=== PATIENT | female | born 1940 | race Caucasian/White ===

== ENCOUNTER 2019-01-19 13:46 | Emergency (ER) | payer MEDICARE, OTHER ==
[~2019-01-19] VITALS: Ht 167.6 cm; Wt 69.0 kg
--- OUTSIDE RECORDS SUMMARY | ~2019-01-19 | XMS | Clinical Summary ---
Demographics + + + | Address | [address] | | | [place] [address] | + + + | Home Phone | | + + + | Preferred Language | Unknown | + + + | Marital Status | Single | + + + | Taoist Affiliation | Unknown | + + + | Race | Unknown | + + + | Ethnic Group | Unknown | + + + Author + + + | Author | [facility] [employer] | + + + | Organization | [facility] [employer] | + + + | Address | Unknown | + + + | Phone | Unavailable | + + + Care Team Providers + +------+ + | Care Organization Development Consultant Name | Role | Phone | + +------+ + | Jerry Lagunas MD | PP | | + +------+ + Allergies Not on File Current Medications Not on file Active Problems Not [...] on file | | + + + Plan of Treatment + + + + [...] | + + + + + | DEXA SCAN SCREENING | | | | | | 6 | | | + + + + + | Vaccine: | | | | | Pneumococcal 65+ | 6 | | | | Low/Medium Risk (1 | | | | | of 2 - PCV13) | | | | + + + + + | Vaccine: Influenza | | | | | (#1) | 8 | | | + + + + + Results Not on filefrom Last 3 Months Insurance + +--------+ +------+-------+ + | Payer | Benefi | Subscriber | Type | Phone | Address | | | t Plan | ID | | | | | | / | | | | | | | Group | | | | | + +--------+ +------+-------+ + | MEDICARE | MEDICA | [id number] | | | [address] | | | RE | | | | [place] [address] | | | PART B | | | | | | | | | | | | | | OUTPAT | | | | | | | IENT | | | | | | | ONLY | | | | | + +--------+ +------+-------+ + + +--------+ +--------+-------+ + | Guarantor Name | Accoun | Relation to | Date | Phone | Billing Address | | | t Type | Patient | of | | | | | | | | | | + +--------+ +--------+-------+ + | JOSE HENSLEY | Person | Self | [birth year] | | | | ar/Nayan | | 1940 | | | | | ariela | | | | | + +--------+ +--------+-------+ +"
--- OUTSIDE RECORDS SUMMARY | ~2019-01-19 | XMS | Clinical Summary ---
Demographics + + + | Address | [address] | | | [place] [address] | + + + | Home Phone | | + + + | Preferred Language | Unknown | + + + | Marital Status | Unknown | + + + | Jew Affiliation | Unknown | + + + | Race | Unknown | + + + | Ethnic Group | Unknown | + + + Author + + + | Author | [facility] | + + + | Organization | [facility] | | | and [place] | + + + | Address | Unknown | + + + | Phone | Unavailable | + + + Care Team Providers + +------+ + | Care Phlebotomy Coordinator Name | Role | Phone | + +------+ + PP | Unavailable | + +------+ + Allergies Not on [...]
--- OUTSIDE RECORDS SUMMARY | ~2019-01-19 | XMS | Clinical Summary ---
Demographics + + + | Address | [address] | | | [place] [address] | + + + | Home Phone | | + + + | Preferred Language | Unknown | + + + | Marital Status | Single | + + + | Buddhism Affiliation | Unknown | + + + | Race | Unknown | + + + | Ethnic Group | Unknown | + + + Author + + + | Author | [facility] [employer] | + + + | Organization | [facility] [employer] | + + + | Address | Unknown | + + + | Phone | Unavailable | + + + Care Team Providers + +------+ + | Care Tubular Splitting Machine Tender Name | Role | Phone | + [...] +------+-------+ + | MEDICARE | MEDICA | [id number] | | | [address] | | | RE | | | | [place] [address] | | | PART B | | [...] | 1940 | | | | | raiela | | | | | + +--------+ +--------+-------+ +"
--- OUTSIDE RECORDS SUMMARY | ~2019-01-19 | XMS | Clinical Summary ---
Demographics + + + | Address | [address] | | | [place] [address] | + + + | Home Phone | | + + + | Preferred Language | Unknown | + + + | Marital Status | Unknown | + + + | Pentecostalism Affiliation | Unknown | + + + | Race | Unknown | + + + | Ethnic Group | Unknown | + + + Author + + + | Author | [facility] | | | [facility] | + + + | Organization | [facility] | | | and [place] | + + + | Address | Unknown | + + + | Phone | Unavailable | + + + Care Team Providers + +------+ + | Care Archival Records Clerk Name | Role | Phone | + [...]
[~2019-01-19 13:46] MED LIST: AMOXICILLIN500 MG PO; B-125000 MCG PO; DICLOFENAC SOD100 G1 TOP; ELIQUIS5 MG PO; FLUTICASONE PRO16 GM NAS; LEVOTHYROXINE100 MCG PO; LEVOTHYROXINE88 MCG PO; METRONIDAZOLE250 MG; METRONIDAZOLE250 MG PO; OMEPRAZOLE20 MG PO; PRAVASTATIN SOD40 MG PO; TIKOSYN500 MCG PO; WARFARIN SODIU2.5 MG PO; XARELTO20 MG PO
== END 2019-01-19 15:00 | disposition home or self-care (01) ==
LOC: ED 13:46
PROC: 0HQ1XZZ Repair Face Skin, External Approach (ICD-10-PCS; principal; 2019-01-19)
DX: S01.112A Laceration without foreign body of left eyelid and periocular area, initial encounter (principal); E03.9 Hypothyroidism, unspecified; Z90.710 Acquired absence of both cervix and uterus; Z88.8 Allergy status to other drugs, medicaments and biological substances; Z79.899 Other long term (current) drug therapy; Z79.01 Long term (current) use of anticoagulants; W01.10XA Fall on same level from slipping, tripping and stumbling with subsequent striking against unspecified object, initial encounter
CPT/HCPCS: 12011; 36415; 70450; 85610; 99284-25

== ENCOUNTER 2019-09-09 16:59 | Inpatient (IN) | payer MEDICARE, OTHER ==
[~2019-09-09] VITALS: Ht 167.6 cm; Wt 70.8 kg
--- OUTSIDE RECORDS SUMMARY | ~2019-09-09 | XMS | Clinical Summary ---
Demographics + + + | Address | [address] | | | [place] [address] | + + + | Home Phone | | + + + | Preferred Language | Unknown | + + + | Marital Status | Unknown | + + + | Methodist Affiliation | Unknown | + + + | Race | Unknown | + + + | Ethnic Group | Unknown | + + + Author + + + | Author | [facility] | | | and [place] | + + + | Organization | [facility] | | | and [place] | + + + | Address | Unknown | + + + | Phone | Unavailable | + + + Care Team Providers + +------+ + | Care Field Support Engineer Name | Role | Phone | + +------+ + | Manpreet Lagunas MD | PCP | | + +------+ + Allergies Not on File Medications Not on file Active Problems Not on file Social History + +-------+ +--------+------+ | Tobacco Use | Types | Packs/Day | Years | Date | | | | | Used | | + +-------+ +--------+------+ | Never Assessed | | | | | + +-------+ +--------+------+ + + + | Sex Assigned at | Date Recorded | | | | + + + | Not on file | | + + + + + + + | Job Start Date | Occupation | Industry | + + + + | Not on file | Not on file | Not on file | + + + + + + + + | Travel History | Travel Start | Travel End | + + + + + + | No recent travel history available. | + + Last Filed Vital Signs Not on file Plan of Treatment + + + + + | Health Maintenance | Due Date | Last Done | Comments | + + + + + | Vaccine: | | | | | Dtap/Tdap/Td (1 - | 0 | | | | Tdap) | | | | + + + + + | Vaccine: Zoster (1 | | | | | of 2) | 1 | | | + + + + + | Breast Cancer | | | | | Screening | 6 | | | + + + + + | Vaccine: | | | | | Pneumococcal 65+ | 6 | | | | Low/Medium Risk (1 | | | | | of 2 - PCV13) | | | | + + + + + | Vaccine: Influenza | | | | | (#1) | 9 | | | + + + + + Results Not on filefrom Last 3 Months"
--- OUTSIDE RECORDS SUMMARY | ~2019-09-09 | XMS | Clinical Summary ---
Demographics + + + | Address | [address] | | | [place] [address] | + + + | Home Phone | | + + + | Preferred Language | Unknown | + + + | Marital Status | Single | + + + | Roman Catholic Affiliation | Unknown | + + + | Race | Unknown | + + + | Ethnic Group | Unknown | + + + Author + + + | Author | [facility] (Historical as of | | | 06-23-19) | + + + | Organization | [facility] (Historical as of | | | 06-23-19) | + + + | Address | Unknown | + + + | Phone | Unavailable | + + + Care Team Providers + +------+ + | Care Dialysis Technician Name | Role | Phone | + [...] +------+-------+ + | MEDICARE | MEDICA | [id number] | | | [address] | | | RE | | | | [place] [address] | | | PART B | | [...] | [birth year] | | | | | al/Nayan | | 1940 | | | | | ariela | | | | | + +--------+ +--------+-------+ +"
--- OUTSIDE RECORDS SUMMARY | ~2019-09-09 | XMS | Clinical Summary ---
Demographics + + + | Address | [address] | | | [place] [address] | + + + | Home Phone | | + + + | Preferred Language | Unknown | + + + | Marital Status | Single | + + + | Zoroastrian Affiliation | Unknown | + + + | Race | Unknown | + + + | Ethnic Group | Unknown | + + + Author + + + | Author | [facility] (Historical as of | | | 06-23-19) | + + + | Organization | [facility] [employer] [facility] (Historical as of | | | 06-23-19) | + + + | Address | Unknown | + + + | Phone | Unavailable | + + + Care Team Providers + +------+ + | Care Supervisor Plate Pasting Name | Role | Phone | + [...] +------+-------+ + | MEDICARE | MEDICA | [id number] | | | [address] | | | RE | | | | [place] [address] | | | PART B | | [...]
--- OUTSIDE RECORDS SUMMARY | ~2019-09-09 | XMS | Clinical Summary ---
Demographics + + + | Address | [address] | | | [place] [address] | + + + | Home Phone | | + + + | Preferred Language | Unknown | + + + | Marital Status | Unknown | + + + | Christianity Affiliation | Unknown | + + + | Race | Unknown | + + + | Ethnic Group | Unknown | + + + Author + + + | Author | [facility] | | | and [place] | + + + | Organization | [facility] | | | and [place] | + + + | Address | Unknown | + + + | Phone | Unavailable | + + + Care Team Providers + +------+ + | Care Bristle Machine Operator Name | Role | Phone | + [...]
--- OUTSIDE RECORDS SUMMARY | ~2019-09-09 | XMS | Clinical Summary ---
Demographics + + + | Address | [address] | | | [place] [address] | + + + | Home Phone | | + + + | Preferred Language | Unknown | + + + | Marital Status | Single | + + + | Islam Affiliation | Unknown | + + + | Race | Unknown | + + + | Ethnic Group | Unknown | + + + Author + + + | Author | [facility] (Historical as of | | | 06-23-19) | + + + | Organization | [facility] (Historical as of | | | 06-23-19) | + + + | Address | Unknown | + + + | Phone | Unavailable | + + + Care Team Providers + +------+ + | Care Marketing Analytics Specialist Name | Role | Phone | [...] +------+-------+ + | MEDICARE | MEDICA | [id number] | | | [address] | | | RE | | | | [place] [address] | | | PART B | | [...]
--- OUTSIDE RECORDS SUMMARY | ~2019-09-09 | XMS | Clinical Summary ---
Demographics + + + | Address | [address] | | | [place] [address] | + + + | Home Phone | | + + + | Preferred Language | Unknown | + + + | Marital Status | Unknown | + + + | Taoist Affiliation | Unknown | + + + | Race | Unknown | + + + | Ethnic Group | Unknown | + + + Author + + + | Author | [facility] | | | and [place] | + + + | Organization | [facility] | | | and [place] | + + + | Address | Unknown | + + + | Phone | Unavailable | + + + Care Team Providers + +------+ + | Care Dial Marker Name | Role | Phone | + [...]
[~2019-09-09 16:59] MED LIST changes: +ALLEGRA ALLERG180 MG PO
--- NOTE | 2019-09-09 23:00 | NUR ---
PT RESTING IN BED. ASSESSMENT COMPLETED. IV CDI, WNL, FLUSHED. IV FLUIDS INFUSING PER ORDER. A&O X4. GCS 15. NO OTHER NEEDS AT THIS TIME. CALL LIGHT IN REACH.
--- NOTE | 2019-09-09 23:25 | NUR ---
CALLED MD TO ASK ABOUT PT HOME MED TIKOSYN 500MG BID AND BLOOD THINNER. INR RESULTS TODAY ARE THERAPUTIC, NO BLOOD THINNER ORDERED. PT TO TAKE OWN TIKOSYN ORDERED.
--- NOTE | 2019-09-10 01:03 | NUR ---
PT RESTING IN BED, EYS CLOSED. RR 14, EVEN, UNLABORED. CALL LIGHT IN REACH.
--- NOTE | 2019-09-10 02:00 | NUR ---
VITALS DONE AND CHARTED. URINE SAMPLE TAKEN . BEDSIDE TABLE AND CALL LIGHT IN REACH.
--- NOTE | 2019-09-10 03:10 | NUR ---
PT RESTING IN BED, EYES CLOSED. RR 16, EVEN, UNLABORED. CALL LIGHT IN REACH.
--- NOTE | 2019-09-10 04:40 | NUR ---
PT CALLS TO USE RESTROOM. URINE COLLECTED AND SENT TO LAB PER ORDER. LEFT AC IV DC'D, INTACT. 20G RIGHT FA PLACED, TOLERATED WELL. IV FLUIDS INFUSING PER ORDER. NO OTHER NEEDS AT THIS TIME. CALL LIGHT IN REACH.
--- NOTE | 2019-09-10 05:54 | NUR ---
PT AWAKE IN ROOM. UP TO BR, SBA. SCHEDULED MED PROVIDED. NO OTHER NEEDS AT THIS TIME. CALL LIGHT IN REACH.
--- NOTE | 2019-09-10 06:12 | NUR ---
PT SLEPT OFF AND ON THIS SHIFT. PT HAS VERTIGO WITH MOVEMENT AND STANDING. PT TOLERATED IV FLUIDS WELL. TELE #7 SR TRENDING IN THE LOW 60S. IV IN R AC DC'D DUE TO INFILTRATION. NEW IV IN R FA, 20G, FLUSHED WELL.
--- NOTE | 2019-09-10 08:09 | NUR ---
PATIENT WAS AWAKE, AMBULATED TO THE RESTROOM 1 P ASSIST, FACE WAHED FRESH WATER GIVEN, CLEANED OFF HER TABLE, CALL LIGHT IN REACH, BREAKFAST ARRIVED.
[2019-09-10] MEDS ORDERED: TIKOSYN500 MCG PO (09:36)
--- NOTE | 2019-09-10 09:45 | NUR ---
PATIENT UP TO BATHROOM SHOWERED. FULL BODY ASSESMENT DONE, MORNING MEDICAITONS ADMINISTERED. PATIENT STEADY ON FEET, NO COMPLAINTS OF DIZZINESS.
--- NOTE | 2019-09-10 11:07 | NUR ---
MRI SCREENING DONE, AORTA VALVE CARD COPIED AND FORMS FAXED TO MRI, NOTIFIED ANAI DEL ROSARIO ON PHONE.
--- NOTE | 2019-09-10 11:42 | NUR ---
PT IS ALERT, ORIENTED AND STAFF HAS KEPT HER BUSY WORKING ON DC MAYBE TODAY. PT ADMITTED SHE IS STILL "DIZZY" IN HER WORDS AND MADE JOKES ABOUT IT. PT REQUESTED PRAYER, WILL FOLLOW NEEDED
--- NOTE | 2019-09-10 13:26 | NUR ---
Medications reocnciled using pharmacy records and patient interview
--- NOTE | 2019-09-10 14:50 | NUR ---
PATIENT CONTINUES TO COMPLAIN OF HEADACHE, PROVIDED PATIENT WITH CUP OF COFFEE AND WARM PACK TO PLACE ON BACK OF NECK. NO RELIEF OF PAIN. DR. NIÑO ORDERED 1 X DOSE OF 15MG IV TORADOL. PATIENT AGREED WITH PLAN, NOW UP TO BATHROOM. STEADY ON FEET, PATIENT REPORTS FEELING STEADY ON FEET STATES " I AM NOT DIZZY, JUST HAVE AN AWFUL HEADACHE AND NOW MY STOMACH IS BOTHERING ME". CALL LIGHT WITHIN REACH, FAMILY IN ROOM.
--- NOTE | 2019-09-10 15:55 | NUR ---
In to speak with Zoey, she is holding her granddaughter. States she continues with a headache and awaiting results of MRI. Family in room. She lives alone with a daughter in law her assists her. Has [address] condo. She continues to work at [employer]. Does not use any DME at home.
[2019-09-10] MEDS ORDERED: GUMMI BEAR MUL1 EACH PO (16:27)
[2019-09-10] MEDS ORDERED: VITAMIN B-12500 MC3 PO (16:29)
--- NOTE | 2019-09-10 17:38 | EKG ---
[facility] [address] [place] [address] Signed Sinus rhythm with marked sinus arrhythmia ST \T\ T wave abnormality, consider lateral ischemia Prolonged QT Abnormal ECG When compared with ECG of 07-DEC-2016 14:47, premature supraventricular complexes are no longer present Questionable change in QRS duration Confirmed by CHARIS NIÑO DO ([id number]) on 09/10/2019 5:38:12 PM Electronically Signed By: CHARIS NIÑO DO 09/10/19 1738 PATIENT NAME: AYDENJOSE Electrocardiogram DATE OF : 42 PHYSICIAN: CHARIS NIÑO DO REPORT #: [id number] REPORT IS CONFIDENTIAL AND NOT TO BE RELEASED WITHOUT AUTHORIZATION
--- NOTE | 2019-09-10 17:40 | EKG ---
[facility] [address] [place] [address] Signed Sinus rhythm with premature ventricular complexes or fusion complexes Nonspecific T wave abnormality Prolonged QT Abnormal ECG When compared with ECG of 09-SEP-2019 17:05, (Unconfirmed) fusion complexes are now present premature ventricular complexes are now present ST no longer depressed in Lateral leads Inverted T waves have replaced nonspecific T wave abnormality in Anterior leads T wave inversion no longer evident in Lateral leads Confirmed by CHARIS NIÑO DO ([id number]) on 09/10/2019 5:40:00 PM Electronically Signed By: CHARIS NIÑO DO 09/10/19 1740 PATIENT NAME: JOSE HENSLEY Electrocardiogram DATE OF : 42 PHYSICIAN: CHARIS NIÑO DO REPORT #: [id number] REPORT IS CONFIDENTIAL AND NOT TO BE RELEASED WITHOUT AUTHORIZATION
--- NOTE | 2019-09-10 18:57 | NUR ---
PATIENT TO MRI TODAY. COMPLAINTS HEADACHE FROM BASE OF NECK TO RIGHT SIDE OF HEAD. ONE TIME DOSE OF IV TORADOL AND TYLENOL RESOLVED. STBY TO BATHROOM PATIENT USING CALL LIGHT APPROPRIATLEY. BED ALARMS ON SECONDARY TO PATIENT VERBALIZING WILL AMBULATE SELF TO BATHROOM.
--- NOTE | 2019-09-10 19:10 | NUR ---
PT AWAKE IN ROOM, WATCHING TV. SHIFT REPORT RECIEVED FROM UBALDO REBOLLAR. NO NEEDS AT THIS TIME. RIGHT FA IV CDI, WNL, FLUSHED. CALL LIGHT IN REACH.
--- NOTE | 2019-09-10 20:58 | NUR ---
CALL LIGHT ANSWERED. ORTHOSTATIC VS COMPLETE. SBA TO RESTROOM. GAIT STEADY. SOME C/O DIZZINESS. pt STATES "MUCH BETTER THAN LAST NIGHT". DENIES NEED FOR PRN MEDICATION. IVF INFUSING WNL. VERBALIZES UNDERSTANDING TO USE CALL LIGHT WHEN FINISHED.
--- NOTE | 2019-09-10 22:24 | NUR ---
PT RESTING IN BED, WATCHING TV. SCHEDULED MED PROVIDED. ASSESSMENT COMPLETED. IV CDI, WNL. IV FLUIDS INFUSING PER ORDER. NO OTHER NEEDS AT THIS TIME. CALL LIGHT IN REACH.
--- NOTE | 2019-09-10 23:16 | NUR ---
WENT IN TO CHANGED THE TELE BATTERY. PATIENT USED THE BATHROOM. 1 PA. PATIENT IS BACK IN BED. NO OTHER NEEDS AT THIS TIME.
--- NOTE | 2019-09-11 00:19 | NUR ---
PT AWAKE IN ROOM. WARM DRINK PROVIDED. IV FLUIDS INFUSING OER ORDER. NO OTHER NEEDS AT THIS TIME. CALL LIGHT IN REACH.
--- NOTE | 2019-09-11 01:18 | NUR ---
PT UP TO BR, SBA. NO OTHER NEEDS. CALL LIGHT IN REACH.
--- NOTE | 2019-09-11 01:57 | NUR ---
PT RESTING IN BED WITH EYES CLOSED. RR 18, EVEN, UNLABORED. CALL LIGHT IN REACH.
--- NOTE | 2019-09-11 03:39 | NUR ---
PT UP TO BR WITH SMOOTH GASCA. ASSESSMENT COMPLETED. NO OTHER NEEDS AT THIS TIME. IV FLUIDS INFUSING PER ORDER. IV CDI, WNL. CALL LIGHT IN REACH.
--- NOTE | 2019-09-11 05:29 | NUR ---
PT SLEPT MOST OF THE SHIFT. IV CDI, WNL, FLUSHED. PT HAS SOME DIZZINESS IF SHE SITS OR STANDS UP QUICKLY. PT NEEDS REMINDED TO MOVE SLOWLY. VSS. A & O X4. PT REPORTED NO PAIN THIS SHIFT. PT TOLERATED IV FLUIDS WELL.
--- NOTE | 2019-09-11 05:51 | NUR ---
PT AWAKE IN ROOM. LAB IN ROOM. SCHEDULED MED PROVIDED. VS AND I&O COMPLETED. COFFEE AND ICE WATER PROVIDED. IV INFUSING PER ORDER. PT UP TO BR AND BACK TO BED. NO OTHER NEEDS AT THIS TIME. CALL LIGHT IN REACH.
--- NOTE | 2019-09-11 07:44 | NUR ---
REPORT RECIEVED FROM ATTENDANCE SECRETARY. PT UP TO BATHROOM WITHOUT STAFF ASSIST. PT EDUCATED VTC TECHNICIAN LIGHT, AND NEEDING STAFF WHEN GETTING OUT OF BED D/T FALL RISK. CALL LIGHT IN REACH. PT IS ALERT AND ORIENTED. LR AT 125 INFUSING. TELE # [address] WITH IRREGULAR HR AT 60 BPM. DENEIS FURTHER NEEDS.
--- NOTE | 2019-09-11 09:17 | NUR ---
ORTHOSTATIC VITALS DONE. PT WITH CONTINUED DIZZINESS FROM SITTING TO BATHROOM AND BACK TO BED WITH NO RELEAVING FACTORS. DR NIÑO NOTIFIED OF VITALS. NO NEW ORDERS. PT WITH CALL LIGHT AND PERSONAL ITEMS AT BEDSIDE.
--- NOTE | 2019-09-11 11:12 | NUR ---
PT UP TO BATHROOM. STILL REPORTING DIZZINESS WITH AMBULATION.
--- NOTE | 2019-09-11 13:30 | NUR ---
PT UP AMBULATIGN [place] WITH PHYSICAL THERAPY.
--- NOTE | 2019-09-11 13:54 | NUR ---
PT WAITING FOR HEDIS MANAGER TO COME ASSIST WITH SHOWER. SHE IS ALERT, ORIENTED AND A LITTLE BOTHERED BY HER BP ISSUES.PT REQUESTED I CONTACT HER ELECTRONICS DEPARTMENT MANAGER, WHICH I DID. HAD PRAYER WITH PT, WILL FOLLOW NEEDED
--- NOTE | 2019-09-11 14:42 | NUR ---
Spoke with pt when she returns from room with PT. Pt. states she is dizzy. Assisted to return to bed by PT.
--- NOTE | 2019-09-11 15:30 | NUR ---
PT SITTING IN BED WATCHING TV. REPORTS DIZZINESS UNCAHNGED. CALL LIGHT IN REACH.
--- NOTE | 2019-09-11 18:02 | NUR ---
PT IN BED EATING DINNER. PT HAS NO NEEDS AT THIS TIME.
--- NOTE | 2019-09-11 19:40 | NUR ---
SHIFT REPORT RECIEVED FROM DAT REBOLLAR. PT RESTING IN BED, WATCHING TV. ICE WATER PROVIDED. NO OTHER NEEDS. CALL LIGHT IN REACH.
--- NOTE | 2019-09-11 19:40 | NUR ---
pt FOUND AMBULATING TO RESTROOM. RN IN ROOM. pt EDUCATED ON FALL PRECAUTIONS, SAFETY. VERBALIZES UNDERSTANDING NOT TO GET OUT OF BED WITHOUT CALLING NURSES STATION. CALL LIGHT IN REACH.
--- NOTE | 2019-09-11 22:39 | NUR ---
ORTHOSTATIC VS COMPLETE. LYING 116/69, SITTING 101/58, STANDING 84/53. pt C/O SOME DIZZINESS WITH STANDING. GAIT UNSTEADY. SBA TO RESTROOM FOR VOID AND BACK TO BED. CALL LIGHT IN REACH. ICE WATER AND HOT CHOCOLATE PROVIDED REQUESTED.
--- NOTE | 2019-09-11 23:04 | NUR ---
PT ASSESSMENT COMPLETED. PT REPORTS NO DIZZINESS OR NAUSEA. IV CDI, WNL, FLUSHED. SCHEDULED MED PROVODED. NO OTHER NEEDS. CALL LIGHT IN REACH.
--- NOTE | 2019-09-12 00:30 | NUR ---
PT RESTING IN BED, EYES CLOSED. RR 18, EVEN, UNLABORED. CALL LIGHT IN REACH.
--- NOTE | 2019-09-12 02:08 | NUR ---
CALL LIGHT ANSWERED. SBA TO RESTROOM FOR VOID AND BACK TO BED. pt DENIES DIZZINESS, GAIT UNSTEADY. CALL LIGHT AND PERSONAL SUPPLIES IN REACH. BED ALARM ON.
--- NOTE | 2019-09-12 04:06 | NUR ---
PT RESTING IN BED, EYES CLOSED. RR 14, EVEN, UNLABORED. CALL LIGHT IN REACH.
--- NOTE | 2019-09-12 05:14 | NUR ---
pt RESTING IN BED. AWAKENS TO VOICE. VSS. CALL LIGHT IN REACH. NO REQUESTS AT THIS TIME.
--- NOTE | 2019-09-12 05:41 | NUR ---
PT SLEPT WELL THIS SHIFT. TELE #6 IRREGULAR. ONE EPISODE OF BRADYCARDIA WHILE SLEEPING. BP AND PULSES WNL IMMEDIATELY AFTER EPISODE. DIZZINESS WHEN STANDING AND CHANGING POSITION.
--- NOTE | 2019-09-12 06:10 | NUR ---
PT AWAKE IN ROOM. LAB IN ROOM. SCHEDULED MED PROVIDED. PT DENIES DIZZINESS WHILE LAYING IN BED. ASSESSMENT COMPLETED. COFFEE PROVIDED. BED ALARM ON. NO OTHER NEEDS. CALL LIGHT IN REACH.
--- NOTE | 2019-09-12 06:53 | NUR ---
CALL LIGHT ANSWERED. SBA TO RESTROOM FOR VOID. PRN DIZZINESS MEDICATION ADMINISTERED.
--- NOTE | 2019-09-12 07:17 | NUR ---
REPORT RECEIVED FROM SMOOTH WILLAMS. PT RESTING IN BED. PT DENIES PAIN BUT STATES "I MIGHT BE GETTING A HEADACHE" PT DENIES NEED FOR PAIN MEDICAITON STATING "I JUST NEED SOME COFFEE." COFFEE PROVIDED. TELE IN IRREGULAR RHYTHEM (HX OF AFIB) HR = 61. NO ADDITIONAL REQUESTS OR COMPLAINTS. CALL LIGHT WITHIN REACH.
--- NOTE | 2019-09-12 08:23 | NUR ---
PATIENT SITTING UP IN BED TAKING HER BREAKFAST. SETS UP BATHROOM FOR SHOWER. CALL LIGHT WITHIN REACH. NO OTHER NEEDS AT THIS TIME
--- NOTE | 2019-09-12 09:02 | NUR ---
MORNING ASSESSMENT AND MEDICAITON DUE. PT RESTING IN BED, FINISHED WITH BREAKFAST. ORTHOSTATIC VITALS SIGNS TAKEN, POSITIVE RESULTS WITH A DROP OF BP FROM 112/54 TO 72/44 AND MINIMAL CHANGE IN HEART RATE 70 TO 87 BPM. 1PA UP TO RESTROOM. PT VOIDS WIHTOUT ISSUE. PT UP TO CHAIR. ASSESSMENT DONE. CMS INTACT. IRREGULAR HEART RATE CONTINUES ON TELE. COFFEE PROVIDED PER PT REQUEST. MEDICATION GIVEN. PT STATE TIKOSYN NEEDS TO BE DOSED AT 1030. PHARAMCY CALLED. NO ADDITIONAL REQUESTS OR COMPLAINTS. CALL LIGHT WITHIN REACH.
--- NOTE | 2019-09-12 09:18 | NUR ---
PATIENT SITTING UP IN CHAIR. VITAL SIGNS DONE BY RN. I&O DONE. LINENS CHANGED. CALL LIGHT WITHIN REACH. NO OTHER NEEDS AT THIS TIME
--- NOTE | 2019-09-12 10:30 | NUR ---
THIS RN TO ROOM TO CHECK ON PT. PT UP TO CHAIR VISITING WITH FINISHED CLOTH CHECKER. TIKOSYN GIVEN AT 1030 PER PT REQUEST AND NORMAL TIMING OF MEDICATION. PT DENIES PAIN AND NAUSEA. PT DENIES ADDITIONAL REQUESTS OR COMPLAINTS. CALL LIGHT WITHIN REACH.
--- NOTE | 2019-09-12 11:00 | NUR ---
PATIENT SITTING UP IN CHAIR. IV WRAPPED. SETS UP BATHROOM FOR SHOWER. PATIENT GOES TO THE BATHROOM TO TAKE A SHOWER. ONE PERSON ASSISTING. PATIENT BACKS TO CHAIR. PATIENT USING A CLEAN GOWN. CALL LIGHT WITHIN REACH. NO OTHER NEEDS AT THIS TIME
--- NOTE | 2019-09-12 12:12 | NUR ---
NOON ASSESSMENT DUE. PT UP TO CHAIR EATING LUNCH, FINISHED WITH SHOWER. PT REPORTS DIZZINESS WITH STANDING AND AMBULATION OTHERWISE "FEELING BETTER TODAY." ASSSMENT DONE. HEART RHYTHEM IRREGULAR, HR = 70-80'S. PT DENIES PAIN AND NAUSEA. NO ADDITIONAL REQUESTS OR COMPLAINTS. CALL LIGHT WITHIN REACH. FALL PRECAUTIONS REVEIEWED WITH PT. PT VERBALIZES UNDERSTANDING AND DEMONSTRATES USE OF CALL LIGHT.
--- NOTE | 2019-09-12 12:41 | NUR ---
PT ALERT, ORIENTED AND HAS ALREADY BEEN WITH P.T. THIS AM. PT FEELS BETTER AND SLEPT REASONABLY WELL LAST NIGHT. PT ACCEPTED A PRAYER SHAWL. SMOOTH RAZA IN TO CARE FOR PT. EXTENDED A BLESSING, WILL FOLLOW NEEDED
--- NOTE | 2019-09-12 13:36 | NUR ---
PATIENT SITTING UP IN CHAIR. PATIENT GOES TO USE BATHROOM. ONE PERSON ASSISTING. PATIENT BACKS TO BED. VITAL SIGNS AND I&O DONE. CALL LIGHT WITHIN REACH. NO OTHER NEEDS AT THIS TIME
--- NOTE | 2019-09-12 15:06 | NUR ---
THIS RN TO ROOM TO CHECK ON PT. MEDICATION DUE. PT DENIES PAIN AND NAUSEA. EDUCATION DONE REGARDING NEW MEDICATION. PT AGREES TO TAKE MEDICATION. (SEE MAR FOR MEDICATION GIVEN). PT VISITING WITH FRIEND. NO ADDITIONAL REQUESTS OR COMPLAINTS AT THIS TIME. CALL LIGHT WITHIN REACH.
--- NOTE | 2019-09-12 16:00 | NUR ---
Spoke with Zoey in her room, family present. States she remains dizzy at times today, but is less than yesterday. Plans on discharging to home, son and step granddaughter plan stay and check on her. 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 Feels she will have assistance with adls. Denies need for DME.
--- NOTE | 2019-09-12 16:55 | NUR ---
PATIENT RESTING IN BED. PATIENT GOES TO USE BATHROOM. ONE PERSON ASSISTING. PATIENT BACKS TO CHAIR. VITAL SIGNS AND I&O DONE. SETS UP TABLE FOR DINNER. ICE WATER GIVEN. CALL LIGHT WITHIN REACH. NO OTHER NEEDS AT THIS TIME
--- NOTE | 2019-09-12 17:07 | NUR ---
AFTERNOON ASSESSMENT AND MEDICATIONS DUE. PT UP TO CHAIR FOR DINNER. PT DENIES PAIN AND NAUSEA. PT REPORTS "THE DIZZINESS SEEMS TO BET BETTER." HR 70-80'S. IRREGULAR RHYTHEM PER BASELINE. LUNG SOUNDS CLEAR. PT VISITING WITH FRIENDS AND EATING DINNER. NO ADDITIIONAL REQUESTS OR COMPLAINTS AT THIS TIME. CALL LIGHT WITHIN REACH.
--- NOTE | 2019-09-12 17:37 | NUR ---
PT HERE FOR VERTIGO. SBA-1PA, PT AMBULATES IN HALLS AND AROUND ROOM. PT TOLERATING REGULAR DIET. NO PAIN OR NAUSEA THIS SHIFT. TELE #7 IN IRREGULAR RHYTHEM THROUGHOUT SHIFT, HR 70-80'S. NEW MEDICATION MIDODRINE, STARTED THIS SHIFT. ORTHOSTATIC VITALS SIGNS (POSITIVE AT AM ASSESSMENT). VOIDING QUANTITY SUFFICIENT. PT USES CALL LIGHT INCONSISTANTLY, BED/CHAIR ALARM WHEN NEEDED.
--- NOTE | 2019-09-12 20:02 | NUR ---
RECEIVED REPORT FROM DAY SHIFT RN. PATIENT IS RESTING IN RECLINER VISITING WITH FAMILY. NO NEEDS NOTED. CALL LIGHT IN REACH.
--- NOTE | 2019-09-12 21:02 | NUR ---
PATIENT IS UP SITTING IN RECLINER. PATIENT ASSESMENT COMPLETED. PATIENT DENIES ANY PAIN OR SOB. PATIENT ASSESMENT COMPLETED. PATIENTS VITALS TAKEN AND RECORDED. PATIENT PROVIDED WITH FRESH ICE WATER. PATIENTS SCHEDULED MEDICATION GIVEN PER ORDER. PATIENT RECEIVED PHONE CALL. WILL RETURN TO TO ORTHOSTATIC VITALS. NO NEEDS NOTED. CALL LIGHT IN REACH.
--- NOTE | 2019-09-12 22:49 | NUR ---
PATIENTS ORTHOSTATIC VITALS COMPLETED AND RECORDED. PATIENT REPORT MILD DIZZINESS WHEN STANDING AFTER 2 MINUTES. PATIENT IS BACK IN BED RESTING. PATIENTS EVENING MEDICATIONS GIVEN PER ORDER. PATIENT REQUESTED MEDICATION FOR DIZZINESS. PRN MEDICATION GIVEN PER ORDER. PATIENT PROVIDE WITH HOT CHOCOLATE PER REQUEST. NO FURTHER NEEDS NOTED CALL LIGHT IN REACH.
--- NOTE | 2019-09-12 23:36 | NUR ---
HELPED PT TO THE BATHROOM AND BACK TO BED. BEDSIDE TABLE AND CALL LIGHT IN REACH.
--- NOTE | 2019-09-13 00:29 | NUR ---
PATIENT IS RESTING IN BED WITH EYES CLOSED, RR 17. CALL LIGHT IN REACH.
--- NOTE | 2019-09-13 01:02 | NUR ---
PATIENT ASSISTED TO THE RESTROOM BY SCALE INSTALLER A SBA. PATIENT IS BACK IN BED RESTING. PATIENT DENIED BEING LIGHT HEADED OR DIZZY WHEN UP TO RESTROOM. NO NEEDS NOTED. CALL LIGHT IN REACH.
--- NOTE | 2019-09-13 02:57 | NUR ---
PATIENT IS RESTING IN BED WITH EYES CLOSED, RR 17. ON TELE #7 HR 62. CALL LIGHT IN REACH.
--- NOTE | 2019-09-13 04:43 | NUR ---
PATIENT RESTED WELL THROUGHT THE SHIFT. PATIENT IS ON A REGULAR DIET, TOLERATING IT WELL AND NO NAUSEA NOTED. PATIENTS IV IS SL. ON TELE #7, IRREGULAR RHYTHYM, HR 50-60. ORTHOSTATIC BID. PATIENT IS A SBA. PATIENT IS AAOX3 AND USES CALL LIGHT APPROPRIATELY. PATIENT RECEIVED PRN MEDICATION X2 FOR DIZZYNESS.
--- NOTE | 2019-09-13 06:16 | NUR ---
PATIENT ASSISTED TO THE RESTROOM A SBA. PATIENT DENIED BEING LIGHT HEADED OR DIZZY DURING AMBULATION. PATIENT IS BACK IN BED RESTING. VITALS TAKEN AND RECORDED. PATIENTS INTAKE AND OUPUT RECORDED. MORNING MEDICATIONS GIVEN PER ORDER. NO FURTHER NEEDS NOTED. CALL LIGHT IN REACH.
--- NOTE | 2019-09-13 06:55 | NUR ---
BEDSIDE HANDOFF REPORT RECEIVED FROM SENIOR PRODUCT DESIGNER RN. PT SLEEPING, LEFT UNDSITURBED.
--- NOTE | 2019-09-13 08:45 | NUR ---
PT RESTING IN BED, EATING BREAKFAST. PT DENIES FEELING DIZZY THIS AM. PT ON ROOM AIR, LUNG SOUNDS CLEAR, DENIES SOB. PT DENIES NAUSEA, BOWEL TONES ACTIVE, TOLERATING REGULAR DIET. PT DENIES PAIN. CMS INTACT, WITHOUT EDEMA. DISCUSSED PLAN OF CARE FOR THE DAY, PT DENIES OTHER NEEDS AT THIS TIME.
[2019-09-13] MEDS ORDERED: MIDODRINE HCL2.5 MG PO (09:25)
[2019-09-13] MEDS ORDERED: FLUDROCORTISON0.1 MG PO (09:26)
[2019-09-13] MEDS ORDERED: MECLIZINE HCL12.5 MG PO (09:26)
--- NOTE | 2019-09-13 10:00 | NUR ---
Spoke with Zoey in her room. She is wanting to go home. Wanting to know when she can leave. She denies need for any DME at home. Spoke with nurses and is completing orders and has written a note for her to return to work. Zoey updated. Will call Meri, granddaughter in law for a ride.
--- NOTE | 2019-09-13 10:30 | NUR ---
DISCHARGE INSTRCUTIONS COMPLETED WITH PT. IV REMOVED, TIP INTACT. VSS. PT GIVEN TIKOSYN PER ORDER AND MEDICATION RETURNED TO PT FOR DISCHARGE. REVIEWED S/S OF STROKE AND WORSENING VERTIGO. PT PROVIDED WITH DAILY BLOOD PRESSURE FLOW SHEET. PT TO GET DRESSED AND WILL CALL WHEN READY FOR A WHEELCHAIR. FRIEND NOTIFIED OF DISCHARGE AND WILL PROVIDE A RIDE HOME.
--- NOTE | 2019-09-13 11:15 | NUR ---
GAVE ENCOURAGEMENT AND BLESSING TO PT SMOOTH DOMÍNGUEZ WAS BUSY GETTING PT READY FOR DC. PT WAS CALLING FOR HER RIDE. WILL FOLLOW NEEDED
== END 2019-09-13 11:00 | disposition home or self-care (01) | DRG 312 ==
LOC: ED 16:59 → MS 17:01
PROVIDERS: ADMIT Student in an Organized Health Care Education/Training Program
DX: I95.1 Orthostatic hypotension (principal); R00.1 Bradycardia, unspecified; I48.91 Unspecified atrial fibrillation; E03.9 Hypothyroidism, unspecified; Z88.1 Allergy status to other antibiotic agents; Z79.899 Other long term (current) drug therapy; Z79.01 Long term (current) use of anticoagulants
CPT/HCPCS: 36415; 70450; 70551; 80048; 80053; 81001; 83735; 84443; 84484; 85025; 85610; 93005; 93010; 97110; 97112; 97116; 97162; 97165; 99285-25; J1885; J7121

== ENCOUNTER 2020-02-10 20:10 | Emergency (ER) | payer MEDICARE, OTHER ==
[~2020-02-10] VITALS: Ht 167.6 cm; Wt 72.1 kg
[~2020-02-10 20:10] MED LIST changes: +FLUDROCORTISON0.1 MG PO; +GUMMI BEAR MUL1 EACH PO; +MECLIZINE HCL12.5 MG PO; +MIDODRINE HCL2.5 MG PO; +VITAMIN B-12500 MC3 PO
== END 2020-02-10 23:03 | disposition home or self-care (01) ==
LOC: ED 20:10
DX: S52.502A Unspecified fracture of the lower end of left radius, initial encounter for closed fracture (principal); S52.124A Nondisplaced fracture of head of right radius, initial encounter for closed fracture; S62.111A Displaced fracture of triquetrum [cuneiform] bone, right wrist, initial encounter for closed fracture; S01.112A Laceration without foreign body of left eyelid and periocular area, initial encounter; E03.9 Hypothyroidism, unspecified; Z79.899 Other long term (current) drug therapy; X58.XXXA Exposure to other specified factors, initial encounter
CPT/HCPCS: 12011; 29125; 70450; 73080; 73110; 90471; 90715; 99284-25

== ENCOUNTER 2021-01-03 18:50 | Emergency (ER) | payer MEDICARE, OTHER ==
[~2021-01-03] VITALS: Ht 167.6 cm; Wt 73.9 kg
[~2021-01-03 18:50] MED LIST changes: +HYDROCODON-ACE1 EA10 PO; +LEVOTHYROXINE75 MCG PO; +MIDODRINE HCL5 MG PO
[2021-01-03] MEDS ORDERED: VALIUM5 MG PO (21:49)
--- NOTE | 2021-01-05 16:39 | EKG ---
[facility] [address] [facility] [place] [address] Signed Sinus rhythm with premature atrial complexes Nonspecific T wave abnormality Prolonged QT Abnormal ECG When compared with ECG of 10-SEP-2019 07:53, fusion complexes are no longer present premature ventricular complexes are no longer present premature atrial complexes are now present Confirmed by CHARIS NIÑO DO ([id number]) on 01/05/2021 4:39:18 PM Electronically Signed By: CHARIS NIÑO DO 01/05/21 1639 PATIENT NAME: AYDENJOSE Electrocardiogram DATE OF : 42 PHYSICIAN: CHARIS NIÑO DO REPORT #: [id number] REPORT IS CONFIDENTIAL AND NOT TO BE RELEASED WITHOUT AUTHORIZATION
== END 2021-01-03 22:13 | disposition home or self-care (01) ==
LOC: ED 18:50
DX: R42 Dizziness and giddiness (principal); E03.9 Hypothyroidism, unspecified; Z88.8 Allergy status to other drugs, medicaments and biological substances; Z79.899 Other long term (current) drug therapy; Z79.01 Long term (current) use of anticoagulants
CPT/HCPCS: 80053; 83735; 84484; 85025; 93005; 93010; 96361; 96374; 96375; 99284-25; J2405; J3360; J7030

== ENCOUNTER 2023-02-17 07:40 | Day surgery (SDC) | payer MEDICARE, OTHER ==
[2023-02-15 13:34] VITALS: BP 112/70
[~2023-02-17] VITALS: Ht 167.6 cm; Wt 75.0 kg
--- NOTE | ~2023-02-17 | OR ---
[facility] [address] [place], [place] [address] Draft DATE OF OPERATION: 02/17/2023 SURGEON: Jerardo Young DO PREOPERATIVE DIAGNOSES: Partially obstructive uropathy, labial adhesions, lichen planus. POSTOPERATIVE DIAGNOSES: Partially obstructive uropathy, labial adhesions, lichen planus, vaginal adhesion. ANESTHESIA: General anesthesia. BLOOD LOSS: 5 mL. UX DESIGNER: Josh Negron DO FINDINGS: Nearly complete midline fusion of the labia with 3 mm diameter hole in midline and skilled nursing anterior posteriorly between clitoris and perineal body through which she has been voiding. Once lysed 3 cm introitus with palpable vaginal adhesions present. INDICATIONS: The patient is an 82-year-old female, history of oral and vulvar lichen planus, has previously undergone lysis of vulvar adhesions in office with another provider under local anesthetic much more extensive. She has been pretreated with topical estrogen, which minimally improved pull-through with size of hole through which she is able to void, but has had difficulty voiding necessitating standing up, sitting down, padding extensively to remove urine from the vagina. She strongly desires surgical management. Risks, benefits, and alternatives were discussed. She elected to proceed. Cardiology was consulted who authorized surgery. Discussed risks and benefits of continuing anticoagulation and continued therapeutic warfarin due to low risk of bleeding and high risk of blood clot due to aortic valve replacement and paroxysmal atrial fibrillation. In addition due to the valve replacement and total joint replacement, discussed risks and benefits of antibiotic prophylaxis prior to procedure and she elected to proceed. DESCRIPTION OF PROCEDURE: PATIENT NAME: JOSE HENSLEY OPERATIVE REPORT DATE OF : 42 REPORT #: [id number] PHYSICIAN: JERARDO YOUNG DO PCP: SOPHIE SULLIVAN REPORT IS CONFIDENTIAL AND NOT TO BE RELEASED WITHOUT AUTHORIZATION [facility] [address] [place], [place] [address] Draft The patient was taken back to the operating room where she was placed in dorsal lithotomy. She was given 2 g Ancef. INR was confirmed to be therapeutic. She was prepped and draped in normal sterile fashion except for vaginal prep which could not be performed due to the adhesions. Lacrimal duct dilator was initially inserted through the hole without any resistance, followed by Hegar dilator, which passed easily confirming patent vagina at least at the introitus. Following the Hegar dilator and the crease of the fused labia at midline, Bovie cautery was used to lyse midline labial adhesions superiorly and inferiorly both to restore normal vulvar anatomy. Digital exam of the vagina was significant for adhesive disease consistent with prior diagnosis of lichen planus. Sites of adhesions were notably raw and were reapproximated circumferentially around the vulva bringing vaginal tissue out to meet normal vulvar tissue imbricating previously adhesed surface with 4-0 Vicryl in a running fashion. Following this closure, local anesthetic was infiltrated for prolonged comfort after anesthesia and excellent hemostasis was noted. Premarin cream was applied liberally to the affected area. Sponge and instrument counts were correct and the patient was taken to recovery room in stable and satisfactory condition with strict instructions to continue twice daily ointment application, once daily with estrogen in the evening and once daily with clobetasol in the morning. Close outpatient followup scheduled for 02/21/2023. DO EMMANUEL Balderrama/KIRSTIE /[id number] Copies: ~ PATIENT NAME: JOSE HENSLEY OPERATIVE REPORT DATE OF : 42 REPORT #: [id number] PHYSICIAN: JERARDO YOUNG DO PCP: SOPHIE SULLIVAN REPORT IS CONFIDENTIAL AND NOT TO BE RELEASED WITHOUT AUTHORIZATION
[~2023-02-17 07:40] MED LIST changes: +CLARITIN10 M2; +ESTRADIOL42.5 GM TOP; +FLUTICASONE PRO16 GM INH; +FUROSEMIDE40 MG PO; +MECLIZINE HCL25 MG PO; +MURO-12815 M1 OPTH; +POTASSIUM CHLO20 ME1 PO; +PREDNISOLONE ACE5 ML OP; +VALIUM5 MG PO
[2023-02-17 08:00] VITALS: BP 144/97
--- NOTE | 2023-02-17 11:09 | NUR ---
02/17/23 1109 [address] SN 1101 PATIENT ARRIVES TO THE PACU ASLEEP BUT REACTS TO VERBAL STIMULI. RESP EVEN AND UNLABORED. O2 MASK AT 6 LITERS. DENIES PAIN OR NAUSEA.
[2023-02-17 11:50] VITALS: BP 141/79
--- NOTE | 2023-02-17 12:19 | NUR ---
LE 1150-PATIENT BACK TO ROOM FROM PACU ON . RECEIVED REPORT FROM MICHAELA REBOLLAR. PATIENT IS AWAKE. RESP EVEN AND UNLABORED. DENIES PAIN BUT STATES THE AREA IS "BURNING". DENIES NAUSEA. VERY SMALL AMOUNT OF RED DRAINAGE ON DICKSON PAD. PROVIDED PATIENT WITH PUDDING, COFFEE, AND WATER. FRIEND IN ROOM. CALL LIGHT WITH IN REACH.
--- NOTE | 2023-02-17 12:38 | NUR ---
LE 1225-PATIENT TO THE SIDE OF BED. DENIES DIZINESS. PATIENT AMBULATES TO THE BATHROOM WITH 1 RN ASSIST. GAIT STEADY AND TOLERATED WELL. LE 1227-PATINET VOIDED 300ML OF YELLOW URINE. LE 1230-PATEINT BACK TO ROOM AND GETTING DRESSED. STATES VAGINAL AREA IS SORE BUT TOLERABLE.
[2023-02-17 12:51] VITALS: BP 140/67
--- NOTE | 2023-02-17 13:10 | NUR ---
LE 1250-PATIENT AWAKE LAYING IN BED TALKING TO HER FRIEND. RESP EVEN AND UNLABORED. RATES PAIN 2/10. DENIES NAUSEA. PATIENT READY TO GO HOME. LE 1300-PROVIDED PATEINT AND HER FRIEND WITH DISCHARGE INSTRUCITONS. ALL QUESTIONS ANSWERED. PATIENT AMBULATES TO WHEELCHAIR AND RIDE PROVIDED TO FRONT OF HOSPITAL WHERE HER FRIEND WAS WAITING WITH THE CAR.
--- NOTE | 2023-02-17 14:16 | NUR ---
PT WAITING FOR RN TO BEGIN PREP. I AM FAMILIAR WITH THIS PT-GAVE ENCOURAGEMENT PT REQUESTED PRAYER. MENTIONED HER FRIEND MAGEN WILL BE HERE FOR DC. BLESSING GIVEN, WILL FOLLOW
== END 2023-02-17 13:00 | disposition home or self-care (01) ==
LOC: DS 07:40 → EDSTATUS 09:00 → DS 10:30
PROVIDERS: ATTEND Obstetrics & Gynecology
PROC: 0UNMXZZ Release Vulva, External Approach (ICD-10-PCS; principal; 2023-02-17 09:00)
DX: Q52.5 Fusion of labia (principal); N13.8 Other obstructive and reflux uropathy; L43.9 Lichen planus, unspecified; N89.5 Stricture and atresia of vagina; I48.0 Paroxysmal atrial fibrillation; E03.9 Hypothyroidism, unspecified; E78.5 Hyperlipidemia, unspecified; K21.9 Gastro-esophageal reflux disease without esophagitis; Z79.01 Long term (current) use of anticoagulants; Z95.2 Presence of prosthetic heart valve; Z79.899 Other long term (current) drug therapy; Z78.0 Asymptomatic menopausal state; Z96.651 Presence of right artificial knee joint
CPT/HCPCS: 00940; 36415; 86850; 86900; 86901; J0131; J0690; J1100; J2405; J2704; J3010; J3475; J7121

== ENCOUNTER 2023-06-20 10:10 | Observation (INO) | payer MEDICARE, OTHER ==
[~2023-06-20] VITALS: Ht 167.6 cm; Wt 76.2 kg
--- OUTSIDE RECORDS SUMMARY | ~2023-06-20 | XMS | Continuity of Care Document ---
Demographics + + + | Address | [address] | | | [place] [address] | + + + | Preferred Language | Unknown | + + + | Marital Status | | + + + | Gnosticism Affiliation | Unknown | + + + | Race | White | + + + | Ethnic Group | Not or | + + + Author + + + | Author | [facility] | + + + | Organization | [facility] | + + + | Address | [address] | | | [place] [address] | + + + | Phone | | + + + Care Team Providers + + + + | Care Photo Tube Assembler Name | Role | Phone | + + + + Unavailable | Unavailable | + + + + Unavailable | Unavailable | + + + + Unavailable | Unavailable | + + + + Unavailable | Unavailable | + + + + Unavailable | Unavailable | + + + + Allergies and Intolerances + + + + + + | date | description | facility | reaction | severity | + + + + + + | (no date) | Cortisone | [facility] | (no reaction) | (no severity) | | [facility] | | | + + + + + + | (no date) | Nausea And | [facility] | (no reaction) | (no severity) | | | Vomiting | [facility] | | | | | | [facility] | | | | [facility] | | | + + + + + + | (no date) | Azithromycin | [facility] | (no reaction) | (no severity) | | [facility] | | | + + + + + + | (no date) | Mild | [facility] | (no reaction) | (no severity) | | [facility] | | | + + + + + + | (no date) | Cortisone | [facility] | (no reaction) | (no severity) | | [facility] | | | + + + + + + | (no date) | Azithromycin | [facility] | (no reaction) | (no severity) | | [facility] | | | + + + + + + | (no date) | Dizziness | [facility] | (no reaction) | (no severity) | | [facility] | | | + + + + + + | (no date) | Vomiting | [facility] | (no reaction) | (no severity) | | [facility] | | | + + + + + + | (no date) | AMOXICILLIN | [facility] | (no reaction) | (no severity) | | | | [facility] | | | | | | [facility] | | | | [facility] | | | + + + + + + | (no date) | AMOXICILLIN | [facility] | (no reaction) | (no severity) | | | | [facility] | | | | | | [facility] | | | | [facility] | | | + + + + + + | (no date) | clavulanic | [facility] | (no reaction) | (no severity) | | | acid | | | | + + + + + + | (no date) | azithromycin | [facility] | (no reaction) | (no severity) | + + + + + + | (no date) | cortisone | [facility] | (no reaction) | (no severity) | + + + + + + | (no date) | Azithromycin | [facility] | (no reaction) | (no severity) | | [facility] | | | + + + + + + | (no date) | Cortisone | [facility] | (no reaction) | (no severity) | | [facility] | | | + + + + + + Encounters No information. Functional Status No information. Immunizations + + + + | date | description | facility | + + + + | 2020-02-10 00:00 | Tdap | [facility] | + + + + | 2020-02-10 00:00 | Tdap | [facility] | + + + + Medications + + + + | date | description | facility | + + + + | 2022-12-10 00:00 | MECOBALAMIN | [facility] | + + + + | 2023-02-17 00:00 | MECOBALAMIN | [facility] | + + + + | 2022-12-10 00:00 | FLUTICASONE PROPIONATE 50 | [facility] | | | [facility] | | + + + + | 2023-02-17 00:00 | FLUTICASONE PROPIONATE 50 | [facility] | | | [facility] | | + + + + | 2022-12-10 00:00 | OMEPRAZOLE | [facility] | + + + + | 2023-02-17 00:00 | OMEPRAZOLE | [facility] | + + + + | 2022-12-10 00:00 | DOFETILIDE | [facility] | + + + + | 2023-02-17 00:00 | DOFETILIDE | [facility] | + + + + | 2020-07-24 00:00 | dofetilide 0.5 mg oral | [facility] | | | capsule | [facility] | + + + + | 2020-12-11 00:00 | fluocinonide 0.0005 mg/mg | [facility] | | | topical gel | [facility] | + + + + | 2022-12-10 00:00 | FLUDROCORTISONE ACETATE | [facility] | + + + + | 2022-12-10 00:00 | FUROSEMIDE | [facility] | + + + + | 2022-12-10 00:00 | SODIUM CHLORIDE | [facility] | + + + + | 2023-02-17 00:00 | SODIUM CHLORIDE | [facility] | + + + + | 2022-12-10 00:00 | LORATADINE | [facility] | + + + + | 2023-02-17 00:00 | LORATADINE | [facility] | + + + + | 2020-12-11 00:00 | betamethasone dipropionate | [facility] | | | 0.05 % augmented topical | [facility] | | | gel | | + + + + | 2022-12-10 00:00 | WARFARIN SODIUM | [facility] | + + + + | 2023-02-17 00:00 | WARFARIN SODIUM | [facility] | + + + + | 2018-01-03 00:00 | warfarin sodium 2.5 mg | [facility] | | | oral tablet | [facility] | + + + + | 2022-12-10 00:00 | Diclofenac Sodium | [facility] | + + + + | 2023-02-17 00:00 | Diclofenac Sodium | [facility] | + + + + | 2020-02-18 00:00 | HYDROCODONE | [facility] | | | BIT/ACETAMINOPHEN | | + + + + | 2020-02-18 00:00 | HYDROCODONE | [facility] | | | BIT/ACETAMINOPHEN | | + + + + | 2022-12-10 00:00 | HYDROCODONE | [facility] | | | BIT/ACETAMINOPHEN | | + + + + | 2017-10-13 00:00 | estrace 0.01 % vaginal | [facility] | | | cream | [facility] | + + + + | 2014-06-27 00:00 | LEVOTHYROXINE SODIUM | [facility] | + + + + | 2014-06-27 00:00 | LEVOTHYROXINE SODIUM | [facility] | + + + + | 2022-12-10 00:00 | PRAVASTATIN SODIUM | [facility] | + + + + | 2023-02-17 00:00 | PRAVASTATIN SODIUM | [facility] | + + + + | 2022-12-10 00:00 | LEVOTHYROXINE SODIUM | [facility] | + + + + | 2023-02-17 00:00 | LEVOTHYROXINE SODIUM | [facility] | + + + + | 2020-10-15 00:00 | levothyroxine sodium 0.075 | [facility] | | | mg oral tablet | [facility] | + + + + | 2018-06-15 00:00 | levothyroxine sodium 88 | [facility] | | | mcg oral tablet | [facility] | + + + + | 2022-12-10 00:00 | MIDODRINE HCL | [facility] | + + + + | 2020-12-11 00:00 | midodrine hydrochloride 5 | [facility] | | | mg oral tablet | [facility] | + + + + | 2020-04-19 00:00 | meclizine hydrochloride 25 | [facility] | | | mg oral tablet | [facility] | + + + + Problems + + + + | date | description | facility | + + + + | 2016-10-04 00:00 | paroxysmal atrial | [facility] | | | fibrillation (disorder) | [facility] | + + + + | 2016-10-04 00:00 | Paroxysmal atrial | [facility] | | | fibrillation | [facility] | + + + + | 2017-01-12 00:00 | elevated blood pressure | [facility] | | | reading without diagnosis | [facility] | | | of hypertension (situation) | | | | | | + + + + | 2017-01-12 00:00 | 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) | [facility] | + + + + | 2017-01-12 00:00 | finding of snoring | [facility] | | | | [facility] | + + + + | 2017-01-12 00:00 | 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) | [facility] | + + + + | 2017-01-12 00:00 | hypersomnia (disorder) | [facility] | | | | [facility] | + + + + | 2017-01-12 00:00 | Psychophysiological | [facility] | | | insomnia | [facility] | + + + + | 2017-01-12 00:00 | Hypersomnia | [facility] | | | | [facility] | + + + + | 2017-01-12 00:00 | Elevated blood pressure | [facility] | | | reading without diagnosis | [facility] | | | of hypertension | | + + + + | 2017-01-12 00:00 | Snoring | [facility] | | | | [facility] | + + + + | 2017-01-12 00:00 | 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 | [facility] | + + + + | 2019-01-19 00:00 | Facial laceration | [facility] | + + + + | 2019-01-19 00:00 | Facial laceration | [facility] | + + + + | 2019-01-19 00:00 | Closed head injury | [facility] | + + + + | 2019-01-19 00:00 | Closed head injury | [facility] | + + + + | 2019-09-13 00:00 | Orthostatic hypotension | [facility] | + + + + | 2019-09-13 00:00 | Orthostatic hypotension | [facility] | + + + + | 2019-11-13 00:00 | postural hypotension | [facility] | | | | [facility] | + + + + | 2019-11-13 00:00 | patient encounter status | [facility] | | | (finding) | [facility] | + + + + | 2019-11-13 00:00 | Orthostatic hypotension | [facility] | | | | [facility] | + + + + | 2019-11-13 00:00 | Visit for monitoring | [facility] | | | Tikosyn therapy | [facility] | + + + + | 2020-02-10 00:00 | Laceration of left eyebrow | [facility] | | | | | + + + + | 2020-02-10 00:00 | Laceration of left eyebrow | [facility] | | | | | + + + + | 2020-02-10 00:00 | Closed fracture of head of | [facility] | | | right radius | | + + + + | 2020-02-10 00:00 | Closed fracture of head of | [facility] | | | right radius | | + + + + | 2020-02-10 00:00 | Fracture of distal end of [facility] | | | left radius | | + + + + | 2020-02-10 00:00 | Fracture of distal end of [facility] | | | left radius | | + + + + | 2020-02-10 00:00 | Fracture of triquetrum of [facility] | | | right wrist | | + + + + | 2020-02-10 00:00 | Fracture of triquetrum of [facility] | | | right wrist | | + + + + | 2021-01-03 00:00 | Vertigo | [facility] | + + + + | 2021-01-03 00:00 | Vertigo | [facility] | + + + + | 2023-03-22 08:43 | DISP FX OF 5TH METATARSAL | [facility] | | | BONE, UNSP FT, 7THD | | + + + + | 2023-04-11 09:09 | NONDISP FX OF 5TH | [facility] | | | METATARSAL BONE, R FT, 7THD | | | | | | + + + + | 2023-04-12 14:50 | PAROXYSMAL ATRIAL | [facility] | | | FIBRILLATION | | + + + + | 2023-04-12 14:50 | 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 | [facility] | | | ANTICOAGULANTS | | + + + + | 2023-05-16 12:50 | ENCOUNTER FOR THERAPEUTIC | [facility] | | | DRUG LEVEL MON | | + + + + | 2023-05-16 12:50 | ENCOUNTER FOR THERAPEUTIC | [facility] | | | DRUG LEVEL MONITORING | | + + + + | 2023-05-16 12:50 | 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) | [facility] | | | DRUG THERAPY | | + + + + | 2023-05-16 13:00 | ENCOUNTER FOR THERAPEUTIC | [facility] | | | DRUG LEVEL MON | | + + + + | 2023-05-16 13:00 | 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) | [facility] | | | DRUG THERAPY | | + + + + | 2023-05-16 15:13 | DISP FX OF 5TH METATARSAL | [facility] | | | BONE, UNSP FT, 7THD | | + + + + | 2023-05-17 09:50 | UNSPECIFIED ATRIAL | [facility] | | | FIBRILLATION | | + + + + | 2023-05-17 09:50 | HEART FAILURE, UNSPECIFIED | [facility] | | | | | + + + + | 2023-05-17 09:50 | ENCOUNTER FOR THERAPEUTIC | [facility] | | | DRUG LEVEL MONITORING | | + + + + | 2023-05-17 09:50 | 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 | [facility] | | | ANTICOAGULANTS | | + + + + | 2023-05-20 09:20 | MENOPAUSAL AND FEMALE | [facility] | | | CLIMACTERIC STATES | | + + + + | 2023-05-20 09:20 | ENCOUNTER FOR SCREENING | [facility] | | | FOR OSTEOPOROSIS | | + + + + | 2023-05-20 09:30 | MENOPAUSAL AND FEMALE | [facility] | | | CLIMACTERIC STATES | | + + + + | 2023-06-14 09:45 | UNSPECIFIED ATRIAL | [facility] | | | FIBRILLATION | | + + + + | 2023-06-14 09:45 | HEART FAILURE, UNSPECIFIED | [facility] | | | | | + + + + | 2023-06-14 09:45 | ENCOUNTER FOR THERAPEUTIC | [facility] | | | DRUG LEVEL MONITORING | | + + + + | 2023-06-14 09:45 | [facility] (CURRENT) USE OF | [facility] | | | ANTICOAGULANTS | | + + + + Procedures + + + + | date | description | facility | + + + + | 2020-12-11 00:00 | RI ELECTROCARDIOGRAM | [facility] | | | REPORT | [facility] | + + + + Results/Labs +--------+--------+ +---------+--------+---------+ | test | date | facility | value | unit | notes | +--------+--------+ +---------+--------+---------+ + + | Result panel 1 | + + + + + + + + + | Specimen | (no date) | [facility] | (missing) | (missing) | (missing) | | collection | | [facility] | | | | | (procedure) | | [facility] | | | | + + + + + + + + + | Result panel 2 | + + + + + +------+ + + | VENTRICULAR | 2020-12-11 | [facility] | 66 | (missing) | (missing) | | RATE EKG | 20:33:04 | [facility] | | | | | | | [facility] | | | | + + + +------+ + + + + | Result panel 3 | + + + + + +------+ + + | ATRIAL RATE | 2020-12-11 | [facility] | 66 | (missing) | (missing) | | | 20:33:04 | [facility] | | | | | | | [facility] | | | | + + + +------+ + + + + | Result panel 4 | + + + + + +-------+------+ + | P-R | 2020-12-11 | [facility] | 168 | ms | (missing) | | INTERVAL | 20:33:04 | [facility] | | | | | | | [facility] | | | | + + + +-------+------+ + + + | Result panel 5 | + + + + + +------+------+ + | QRS | 2020-12-11 | [facility] | 86 | ms | (missing) | | DURATION | 20:33:04 | [facility] | | | | | | | [facility] | | | | + + + +------+------+ + + + | Result panel 6 | + + + + + +-------+------+ + | Q-T | 2020-12-11 | [facility] | 466 | ms | (missing) | | INTERVAL | 20:33:04 | [facility] | | | | | | | [facility] | | | | + + + +-------+------+ + + + | Result panel 7 | + + + + + +-------+------+ + | Q-T | 2020-12-11 | [facility] | 488 | ms | (missing) | | INTERVAL | 20:33:04 | [facility] | | | | | (CORRECTED) | | [facility] | | | | + + + +-------+------+ + + + | Result panel 8 | + + + + + +------+ + + | P WAVE AXIS | 2020-12-11 | [facility] | 58 | (missing) | (missing) | | | 20:33:04 | [facility] | | | | | | | [facility] | | | | + + + +------+ + + + + | Result panel 9 | + + + + + +------+ + + | QRS AXIS | 2020-12-11 | [facility] | 14 | (missing) | (missing) | | | 20:33:04 | [facility] | | | | | | | [facility] | | | | + + + +------+ + + + + | Result panel 10 | + + + + + +------+ + + | T AXIS | 2020-12-11 | [facility] | 23 | (missing) | (missing) | | | 20:33:04 | [facility] | | | | | | | [facility] | | | | + + + +------+ + + + + | Result panel 11 | + + + + + + + + + | | 2020-12-11 | [facility] | (missing) | (missing) | (missing) | | INTERPRETATI | 20:33:04 | [facility] | | | | | ON TEXT | | [facility] | | | | + + + + + + + + + | Result panel 12 | + + + + + +-------+ + + | | 2022-11-30 | [facility] | 6.3 | (missing) | (missing) | | (unavailable | 10:48:08 [facility] | | | | + + + +-------+ + + + + | Result panel 13 | + + + + + +--------+ + + | | 2022-11-30 | [facility] | 3.96 | (missing) | (missing) | | (unavailable | 10:48:08 [facility] | | | | + + + +--------+ + + + + | Result panel 14 | + + + + + +--------+ + + | | 2022-11-30 | [facility] | 11.8 | (missing) | (missing) | | (unavailable | 10:48:08 [facility] | | | | + + + +--------+ + + + + | Result panel 15 | + + + + + +--------+ + + | | 2022-11-30 | [facility] | 35.7 | (missing) | (missing) | | (unavailable | 10:48:08 [facility] | | | | + + + +--------+ + + + + | Result panel 16 | + + + + + +--------+ + + | | 2022-11-30 | [facility] | 90.0 | (missing) | (missing) | | (unavailable | 10:48:08 [facility] | | | | + + + +--------+ + + + + | Result panel 17 | + + + + + +--------+ + + | | 2022-11-30 | [facility] | 29.9 | (missing) | (missing) | | (unavailable | 10:48:08 [facility] | | | | + + + +--------+ + + + + | Result panel 18 | + + + + + +--------+ + + | | 2022-11-30 | [facility] | 33.2 | (missing) | (missing) | | (unavailable | 10:48:08 [facility] | | | | + + + +--------+ + + + + | Result panel 19 | + + + + + +--------+ + + | | 2022-11-30 | [facility] | 14.2 | (missing) | (missing) | | (unavailable | 10:48:08 [facility] | | | | + + + +--------+ + + + + | Result panel 20 | + + + + + +-------+ + + | | 2022-11-30 | [facility] | 237 | (missing) | (missing) | | (unavailable | 10:48:08 [facility] | | | | + + + +-------+ + + + + | Result panel 21 | + + + + + +--------+ + + | | 2022-11-30 | [facility] | 52.0 | (missing) | (missing) | | (unavailable | 10:48:08 [facility] | | | | + + + +--------+ + + + + | Result panel 22 | + + + + + +--------+ + + | | 2022-11-30 | [facility] | 34.0 | (missing) | (missing) | | (unavailable | 10:48:08 [facility] | | | | + + + +--------+ + + + + | Result panel 23 | + + + + + +--------+ + + | | 2022-11-30 | [facility] | 10.0 | (missing) | (missing) | | (unavailable | 10:48:08 [facility] | | | | + + + +--------+ + + + + | Result panel 24 | + + + + + +-------+ + + | | 2022-11-30 | [facility] | 3.1 | (missing) | (missing) | | (unavailable | 10:48:08 [facility] | | | | + + + +-------+ + + + + | Result panel 25 | + + + + + +-------+ + + | | 2022-11-30 | [facility] | 0.9 | (missing) | (missing) | | (unavailable | 10:48:08 [facility] | | | | + + + +-------+ + + + + | Result panel 26 | + + + + + +-------+ + + | | 2022-11-30 | [facility] | 7.1 | (missing) | (missing) | | (unavailable | 10:48:08 [facility] | | | | + + + +-------+ + + + + | Result panel 27 | + + + + + +-------+ + + | | 2022-11-30 | [facility] | 3.9 | (missing) | (missing) | | (unavailable | 10:48:08 [facility] | | | | + + + +-------+ + + + + | Result panel 28 | + + + + + +-------+ + + | | 2022-11-30 | [facility] | 3.2 | (missing) | (missing) | | (unavailable | 10:48:08 [facility] | | | | + + + +-------+ + + + + | Result panel 29 | + + + + + +--------+ + + | | 2022-11-30 | [facility] | 1.22 | (missing) | (missing) | | (unavailable | 10:48:08 [facility] | | | | + + + +--------+ + + + + | Result panel 30 | + + + + + +-------+ + + | | 2022-11-30 | [facility] | 0.7 | (missing) | (missing) | | (unavailable | 10:48:08 [facility] | | | | + + + +-------+ + + + + | Result panel 31 | + + + + + +------+ + + | | 2022-11-30 | [facility] | 28 | (missing) | (missing) | | (unavailable | 10:48:08 [facility] | | | | + + + +------+ + + + + | Result panel 32 | + + + + + +------+ + + | | 2022-11-30 | [facility] | 28 | (missing) | (missing) | | (unavailable | 10:48:08 [facility] | | | | + + + +------+ + + + + | Result panel 33 | + + + + + +------+ + + | | 2022-11-30 | [facility] | 56 | (missing) | (missing) | | (unavailable | 10:48:08 [facility] | | | | + + + +------+ + + + + | Result panel 34 | + + + + + +-------+---------+ + | | 2022-12-10 | [facility] | 114 | mg/dL | (missing) | | (unavailable | 06:50:08 [facility] | | | | + + + +-------+---------+ + + + | Result panel 35 | + + + + + +------+---------+ + | | 2022-12-10 | [facility] | 22 | mg/dL | (missing) | | (unavailable | 06:50:08 [facility] | | | | + + + +------+---------+ + + + | Result panel 36 | + + + + + +--------+---------+ + | | 2022-12-10 | [facility] | 1.08 | mg/dL | (missing) | | (unavailable | 06:50:08 [facility] | | | | + + + +--------+---------+ + + + | Result panel 37 | + + + + + +------+ + + | | 2022-12-10 | [facility] | 52 | (missing) | (missing) | | (unavailable | 06:50:08 [facility] | | | | + + + +------+ + + + + | Result panel 38 | + + + + + +---------+ + + | | 2022-12-10 | [facility] | 20.37 | (missing) | (missing) | | (unavailable | 06:50:08 [facility] | | | | + + + +---------+ + + + + | Result panel 39 | + + + + + +-------+ + + | | 2022-12-10 | [facility] | 145 | (missing) | (missing) | | (unavailable | 06:50:08 [facility] | | | | + + + +-------+ + + + + | Result panel 40 | + + + + + +-------+ + + | | 2022-12-10 | [facility] | 3.6 | (missing) | (missing) | | (unavailable | 06:50:08 [facility] | | | | + + + +-------+ + + + + | Result panel 41 | + + + + + +-------+ + + | | 2022-12-10 | [facility] | 106 | (missing) | (missing) | | (unavailable | 06:50:08 [facility] | | | | + + + +-------+ + + + + | Result panel 42 | + + + + + +------+ + + | | 2022-12-10 | [facility] | 30 | (missing) | (missing) | | (unavailable | 06:50:08 [facility] | | | | + + + +------+ + + + + | Result panel 43 | + + + + + +--------+ + + | | 2022-12-10 | [facility] | 12.6 | (missing) | (missing) | | (unavailable | 06:50:08 [facility] | | | | + + + +--------+ + + + + | Result panel 44 | + + + + + +-------+---------+ + | | 2022-12-10 | [facility] | 8.8 | mg/dL | (missing) | | (unavailable | 06:50:08 [facility] | | | | + + + +-------+---------+ + + + | Result panel 45 | + + + + + +--------+ + + | | 2023-02-15 | [facility] | 30.2 | (missing) | (missing) | | (unavailable | 13:52:07 | [facility] | | | | + + + +--------+ + + + + | Result panel 46 | + + + + + +--------+ + + | | 2023-02-15 | [facility] | 33.1 | (missing) | (missing) | | (unavailable | 13:52:07 | [facility] | | | | + + + +--------+ + + + + | Result panel 47 | + + + + + +--------+ + + | | 2023-02-15 | [facility] | 14.5 | (missing) | (missing) | | (unavailable | 13:52:07 | [facility] | | | | + + + +--------+ + + + + | Result panel 48 | + + + + + +-------+ + + | | 2023-02-15 | [facility] | 230 | (missing) | (missing) | | (unavailable | 13:52:07 | [facility] | | | | + + + +-------+ + + + + | Result panel 49 | + + + + + +--------+ + + | | 2023-02-15 | [facility] | 25.1 | (missing) | (missing) | | (unavailable | 13:52:07 | [facility] | | | | + + + +--------+ + + + + | Result panel 50 | + + + + + +--------+ + + | | 2023-02-15 | [facility] | 2.37 | (missing) | (missing) | | (unavailable | 13:52:07 | [facility] | | | | + + + +--------+ + + + + | Result panel 51 | + + + + + +-------+ + + | | 2023-02-15 | [facility] | 5.9 | (missing) | (missing) | | (unavailable | 13:52:07 | [facility] | | | | + + + +-------+ + + + + | Result panel 52 | + + + + + +--------+ + + | | 2023-02-15 | [facility] | 3.89 | (missing) | (missing) | | (unavailable | 13:52:07 | [facility] | | | | + + + +--------+ + + + + | Result panel 53 | + + + + + +--------+ + + | | 2023-02-15 | [facility] | 11.8 | (missing) | (missing) | | (unavailable | 13:52:07 | [facility] | | | | + + + +--------+ + + + + | Result panel 54 | + + + + + +--------+ + + | | 2023-02-15 | [facility] | 35.5 | (missing) | (missing) | | (unavailable | 13:52:07 | [facility] | | | | + + + +--------+ + + + + | Result panel 55 | + + + + + +--------+ + + | | 2023-02-15 | [facility] | 91.2 | (missing) | (missing) | | (unavailable | 13:52:07 | [facility] | | | | + + + +--------+ + + + + | Result panel 56 | + + + + + +-----+ + + | | 2023-02-17 | [facility] | A | (missing) | (missing) | | (unavailable | 09:24:07 | [facility] | | | | + + + +-----+ + + + + | Result panel 57 | + + + + + + + + + | | 2023-02-17 | [facility] | POSITIVE | (missing) | (missing) | | (unavailable | 09:24:07 | [facility] | | | | + + + + + + + + + | Result panel 58 | + + + + + + + + + | | 2023-02-17 | [facility] | NEGATIVE | (missing) | (missing) | | (unavailable | 09:24:07 [facility] | | | | + + + + + + + + + | Result panel 59 | + + + + + + + + + | | 2023-02-17 | [facility] | BLOOD IN | (missing) | (missing) | | (unavailable | 09:24:07 | [facility] | [facility] | | | | + + + + + + + Social History + + + + | date | description | facility | + + + + | 2020-12-11 00:00 | Never smoker | [facility] | | | | [facility] | + + + + Vital Signs + + + +---------+ | date | measurement | value | units | + + + +---------+ | 2020-12-11 00:00 | BMI | 26.95 | kg/m2 | + + + +---------+ | 2020-12-11 00:00 | BP_diastolic | 86 | mmHg | + + + +---------+ | 2020-12-11 00:00 | BP_systolic | 133 | mmHg | + + + +---------+ | 2020-12-11 00:00 | heart_rate | 66 | /min | + + + +---------+ | 2020-12-11 00:00 | height_metric | 167.6 | cm | + + + +---------+ | 2020-12-11 00:00 | height_standard | 65.98 | in | + + + +---------+ | 2020-12-11 00:00 | weight_metric | 75.75 | kg | + + + +---------+ | 2020-12-11 00:00 | weight_standard | 167 | lb | + + + +---------+ | 2022-11-23 00:00 | BP_diastolic | 55 | mmHg | + + + +---------+ | 2022-11-23 00:00 | BP_systolic | 109 | mmHg | + + + +---------+ | 2022-11-23 00:00 | heart_rate | 82 | /min | + + + +---------+ | 2022-11-30 00:00 | BMI | 26.0 | kg/m2 | + + + +---------+ | 2022-11-30 00:00 | height_metric | 167.64 | cm | + + + +---------+ | 2022-11-30 00:00 | height_standard | 66 | in | + + + +---------+ | 2022-11-30 00:00 | weight_metric | 73.18 | kg | + + + +---------+ | 2022-11-30 00:00 | weight_standard | 161.33 | lb | + + + +---------+ | 2022-12-10 00:00 | BP_diastolic | 70 | mmHg | + + + +---------+ | 2022-12-10 00:00 | BP_systolic | 121 | mmHg | + + + +---------+ | 2022-12-10 00:00 | heart_rate | 79 | /min | + + + +---------+ | 2022-12-10 00:00 | o2_saturation | 96 | % | + + + +---------+ | 2022-12-10 00:00 | respiration_rate | 16 | /min | + + + +---------+ | 2022-12-10 00:00 | temperature_metric | 36 | C | | | | | | + + + +---------+ | 2022-12-10 00:00 | | 96.8 | F | | | temperature_standar | | | | | d | | | + + + +---------+ | 2023-02-01 00:00 | BP_diastolic | 57 | mmHg | + + + +---------+ | 2023-02-01 00:00 | BP_systolic | 115 | mmHg | + + + +---------+ | 2023-02-01 00:00 | heart_rate | 84 | /min | + + + +---------+ | 2023-02-15 00:00 | BMI | 26.7 | kg/m2 | + + + +---------+ | 2023-02-15 00:00 | height_metric | 167.64 | cm | + + + +---------+ | 2023-02-15 00:00 | height_standard | 66 | in | + + + +---------+ | 2023-02-15 00:00 | weight_metric | 75 | kg | + + + +---------+ | 2023-02-15 00:00 | weight_standard | 165.35 | lb | + + + +---------+ | 2023-02-17 00:00 | BP_diastolic | 67 | mmHg | + + + +---------+ | 2023-02-17 00:00 | BP_systolic | 140 | mmHg | + + + +---------+ | 2023-02-17 00:00 | heart_rate | 74 | /min | + + + +---------+ | 2023-02-17 00:00 | o2_saturation | 97 | % | + + + +---------+ | 2023-02-17 00:00 | respiration_rate | 14 | /min | + + + +---------+ | 2023-02-17 00:00 | temperature_metric | 36.11 | C | | | | | | + + + +---------+ | 2023-02-17 00:00 | | 97 | F | | | temperature_standar | | | | | d | | | + + + +---------+"
--- OUTSIDE RECORDS SUMMARY | ~2023-06-20 | XMS | Continuity of Care Document ---
Demographics + + + | Address | [address] | | | [place] [address] | + + + | Preferred Language | Unknown | + + + | Marital Status | | + + + | Lutheran Affiliation | Unknown | + + + | Race | White | + + + | Ethnic Group | Not or | + + + Author + + + | Author | [place] | + + + | Organization | [place] | + + + | Address | [address] | | | [place] [address] | + + + | Phone | | + + + Care Team Providers + + + + | Care A R Specialist Name | Role | Phone | + [...] + | (no date) | Cortisone | [facility] | (no reaction) | (no severity) | | | | [facility] | | | + + + + + + Encounters No information. Functional Status No information. Immunizations + + + + | date | description | facility | + + + + | 2020-02-10 00:00 | Tdap | [facility] | + + + + | 2020-02-10 00:00 | Tdap | [facility] | + + + + Medications + + + + | date | description | facility | + + + + | 2022-12-10 00:00 | MECOBALAMIN | [facility] | + + + + | 2023-02-17 00:00 | MECOBALAMIN | [facility] | + + + + | 2022-12-10 00:00 | FLUTICASONE PROPIONATE 50 | [facility] | | | MCG | | + + + + | 2023-02-17 00:00 | FLUTICASONE PROPIONATE 50 | [facility] | | | MCG | | + + + + | 2022-12-10 00:00 | OMEPRAZOLE | [facility] | + + + + | 2023-02-17 00:00 | OMEPRAZOLE | [facility] | + + + + | 2022-12-10 00:00 | DOFETILIDE | [facility] | + + + + | 2023-02-17 00:00 | DOFETILIDE | [facility] | + + + + | 2020-07-24 00:00 | dofetilide 0.5 mg oral | [facility] | | | capsule | [facility] | + + + + | 2020-12-11 00:00 | fluocinonide 0.0005 mg/mg | [facility] | | | topical gel | [facility] | + + + + | 2022-12-10 00:00 | FLUDROCORTISONE ACETATE | [facility] | + + + + | 2022-12-10 00:00 | FUROSEMIDE | [facility] | + + + + | 2022-12-10 00:00 | SODIUM CHLORIDE | [facility] | + + + + | 2023-02-17 00:00 | SODIUM CHLORIDE | [facility] | + + + + | 2022-12-10 00:00 | LORATADINE | [facility] | + + + + | 2023-02-17 00:00 | LORATADINE | [facility] | + + + + | 2020-12-11 00:00 | betamethasone dipropionate | [facility] | | | 0.05 % augmented topical | [facility] | | | gel | | + + + + | 2022-12-10 00:00 | WARFARIN SODIUM | [facility] | + + + + | 2023-02-17 00:00 | WARFARIN SODIUM | [facility] | + + + + | 2018-01-03 00:00 | warfarin sodium 2.5 mg | [facility] | | | oral tablet | [facility] | + + + + | 2022-12-10 00:00 | Diclofenac Sodium | [facility] | + + + + | 2023-02-17 00:00 | Diclofenac Sodium | [facility] | + + + + | 2020-02-18 00:00 | HYDROCODONE | [facility] | | | BIT/ACETAMINOPHEN | | + + + + | 2020-02-18 00:00 | HYDROCODONE | [facility] | | | BIT/ACETAMINOPHEN | | + + + + | 2022-12-10 00:00 | HYDROCODONE | [facility] | | | BIT/ACETAMINOPHEN | | + + + + | 2017-10-13 00:00 | estrace 0.01 % vaginal | [facility] | | | cream | [facility] | + + + + | 2014-06-27 00:00 | LEVOTHYROXINE SODIUM | [facility] | + + + + | 2014-06-27 00:00 | LEVOTHYROXINE SODIUM | [facility] | + + + + | 2022-12-10 00:00 | PRAVASTATIN SODIUM | [facility] | + + + + | 2023-02-17 00:00 | PRAVASTATIN SODIUM | [facility] | + + + + | 2022-12-10 00:00 | LEVOTHYROXINE SODIUM | [facility] | + + + + | 2023-02-17 00:00 | LEVOTHYROXINE SODIUM | [facility] | + + + + | 2020-10-15 00:00 | levothyroxine sodium 0.075 | [facility] | | | mg oral tablet | [facility] | + + + + | 2018-06-15 00:00 | levothyroxine sodium 88 | [facility] | | | mcg oral tablet | [facility] | + + + + | 2022-12-10 00:00 | MIDODRINE HCL | [facility] | + + + + | 2020-12-11 00:00 | midodrine hydrochloride 5 | [facility] | | | mg oral tablet | [facility] | + + + + | 2020-04-19 00:00 | meclizine hydrochloride 25 | [facility] | | | mg oral tablet | [facility] | + + + + Problems + + + + | date | description | facility | + + + + | 2016-10-04 00:00 | paroxysmal atrial | [facility] | | | fibrillation (disorder) | [facility] | + + + + | 2016-10-04 00:00 | Paroxysmal atrial | [facility] | | | fibrillation | [facility] | + + + + | 2017-01-12 00:00 | elevated blood pressure | [facility] | | | reading without diagnosis | [facility] | | | of hypertension (situation) | | | | | | + + + + | 2017-01-12 00:00 | 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) | [facility] | + + + + | 2017-01-12 00:00 | finding of snoring | [facility] | | | | [facility] | + + + + | 2017-01-12 00:00 | 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) | [facility] | + + + + | 2017-01-12 00:00 | hypersomnia (disorder) | [facility] | | | | [facility] | + + + + [...] | | | heart valve | [facility] | + + + + | 2019-01-19 00:00 | Facial laceration | [facility] | + + + + | 2019-01-19 00:00 | Facial laceration | [facility] | + + + + | 2019-01-19 00:00 | Closed head injury | [facility] | + + + + | 2019-01-19 00:00 | Closed head injury | [facility] | + + + + | 2019-09-13 00:00 | Orthostatic hypotension | [facility] | + + + + | 2019-09-13 00:00 | Orthostatic hypotension | [facility] | + + + + | 2019-11-13 00:00 | postural hypotension | [facility] | | | | [facility] | + + + + | 2019-11-13 00:00 | patient encounter status | [facility] | | | (finding) | [facility] | + + + + | 2019-11-13 00:00 | Orthostatic hypotension | [facility] | | | | [facility] | + + + + | 2019-11-13 00:00 | Visit for monitoring | [facility] | | | Tikosyn therapy | [facility] | + + + + | 2020-02-10 00:00 | Laceration of left eyebrow | [facility] | | | | | + + + + | 2020-02-10 00:00 | Laceration of left eyebrow | [facility] | | | | | + + + + | 2020-02-10 00:00 | Closed fracture of head of | [facility] | | | right radius | | + + + + | 2020-02-10 00:00 | Closed fracture of head of | [facility] | | | right radius | | + + + + | 2020-02-10 00:00 | Fracture of distal end of [facility] | | | left radius | | + + + + | 2020-02-10 00:00 | Fracture of distal end of [facility] | | | left radius | | + + + + | 2020-02-10 00:00 | Fracture of triquetrum of [facility] | | | right wrist | | + + + + | 2020-02-10 00:00 | Fracture of triquetrum of [facility] | | | right wrist | | + + + + | 2021-01-03 00:00 | Vertigo | [facility] | + + + + | 2021-01-03 00:00 | Vertigo | [facility] | + + + + | 2023-03-22 [...] + + + | 2023-04-12 14:50 | 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..] + + + | 2023-06-14 09:45 | PENITENTIARY (CURRENT) USE OF | [facility] | | | ANTICOAGULANTS | | + + + + Procedures + + + + | date | description | facility | + + + + | 2020-12-11 00:00 | [place] ELECTROCARDIOGRAM | [facility] | | [...] (missing) | | (unavailable | 09:24:07 | [facility] | | | | | ) | [...]
--- OUTSIDE RECORDS SUMMARY | ~2023-06-20 | XMS | Continuity of Care Document ---
Demographics + + + | Address | [address] | | | [place] [address] | + + + | Preferred Language | Unknown | + + + | Marital Status | | + + + | Holiness Affiliation | Unknown | + + + | Race | White | + + + | Ethnic Group | Not or | + + + Author + + + | Author | [place] | + + + | Organization | [place] | + + + | Address | [address] | | | [place] [address] | + + + | Phone | | + + + Care Team Providers + + + + | Care Tafe Teacher Name | Role | Phone | + [...] | (no date) | Cortisone | [facility] | (no reaction) | (no severity) | | | | [facility] | | | + + + + + + Encounters No information. Functional Status No information. Immunizations + + + + | date | description | facility | + + + + | 2020-02-10 00:00 | Tdap | [facility] | + + + + | 2020-02-10 00:00 | Tdap | [facility] | + + + + Medications + + + + | date | description | facility | + + + + | 2022-12-10 00:00 | MECOBALAMIN | [facility] | + + + + | 2023-02-17 00:00 | MECOBALAMIN | [facility] | + + + + | 2022-12-10 00:00 | FLUTICASONE PROPIONATE 50 | [facility] | | | MCG | | + + + + | 2023-02-17 00:00 | FLUTICASONE PROPIONATE 50 | [facility] | | | MCG | | + + + + | 2022-12-10 00:00 | OMEPRAZOLE | [facility] | + + + + | 2023-02-17 00:00 | OMEPRAZOLE | [facility] | + + + + | 2022-12-10 00:00 | DOFETILIDE | [facility] | + + + + | 2023-02-17 00:00 | DOFETILIDE | [facility] | + + + + | 2020-07-24 00:00 | dofetilide 0.5 mg oral | [facility] | | | capsule | [facility] | + + + + | 2020-12-11 00:00 | fluocinonide 0.0005 mg/mg | [facility] | | | topical gel | [facility] | + + + + | 2022-12-10 00:00 | FLUDROCORTISONE ACETATE | [facility] | + + + + | 2022-12-10 00:00 | FUROSEMIDE | [facility] | + + + + | 2022-12-10 00:00 | SODIUM CHLORIDE | [facility] | + + + + | 2023-02-17 00:00 | SODIUM CHLORIDE | [facility] | + + + + | 2022-12-10 00:00 | LORATADINE | [facility] | + + + + | 2023-02-17 00:00 | LORATADINE | [facility] | + + + + | 2020-12-11 00:00 | betamethasone dipropionate | [facility] | | | 0.05 % augmented topical | [facility] | | | gel | | + + + + | 2022-12-10 00:00 | WARFARIN SODIUM | [facility] | + + + + | 2023-02-17 00:00 | WARFARIN SODIUM | [facility] | + + + + | 2018-01-03 00:00 | warfarin sodium 2.5 mg | [facility] | | | oral tablet | [facility] | + + + + | 2022-12-10 00:00 | Diclofenac Sodium | [facility] | + + + + | 2023-02-17 00:00 | Diclofenac Sodium | [facility] | + + + + | 2020-02-18 00:00 | HYDROCODONE | [facility] | | | BIT/ACETAMINOPHEN | | + + + + | 2020-02-18 00:00 | HYDROCODONE | [facility] | | | BIT/ACETAMINOPHEN | | + + + + | 2022-12-10 00:00 | HYDROCODONE | [facility] | | | BIT/ACETAMINOPHEN | | + + + + | 2017-10-13 00:00 | estrace 0.01 % vaginal | [facility] | | | cream | [facility] | + + + + | 2014-06-27 00:00 | LEVOTHYROXINE SODIUM | [facility] | + + + + | 2014-06-27 00:00 | LEVOTHYROXINE SODIUM | [facility] | + + + + | 2022-12-10 00:00 | PRAVASTATIN SODIUM | [facility] | + + + + | 2023-02-17 00:00 | PRAVASTATIN SODIUM | [facility] | + + + + | 2022-12-10 00:00 | LEVOTHYROXINE SODIUM | [facility] | + + + + | 2023-02-17 00:00 | LEVOTHYROXINE SODIUM | [facility] | + + + + | 2020-10-15 00:00 | levothyroxine sodium 0.075 | [facility] | | | mg oral tablet | [facility] | + + + + | 2018-06-15 00:00 | levothyroxine sodium 88 | [facility] | | | mcg oral tablet | [facility] | + + + + | 2022-12-10 00:00 | MIDODRINE HCL | [facility] | + + + + | 2020-12-11 00:00 | midodrine hydrochloride 5 | [facility] | | | mg oral tablet | [facility] | + + + + | 2020-04-19 00:00 | meclizine hydrochloride 25 | [facility] | | | mg oral tablet | [facility] | + + + + Problems + + + + | date | description | facility | + + + + | 2016-10-04 00:00 | paroxysmal atrial | [facility] | | | fibrillation (disorder) | [facility] | + + + + | 2016-10-04 00:00 | Paroxysmal atrial | [facility] | | | fibrillation | [facility] | + + + + | 2017-01-12 00:00 | elevated blood pressure | [facility] | | | reading without diagnosis | [facility] | | | of hypertension (situation) | | | | | | + + + + | 2017-01-12 00:00 | 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) | [facility] | + + + + | 2017-01-12 00:00 | finding of snoring | [facility] | | | | [facility] | + + + + | 2017-01-12 00:00 | 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) | [facility] | + + + + | 2017-01-12 00:00 | hypersomnia (disorder) | [facility] | | | | [facility] | + + + + | 2017-01-12 [...] | | | heart valve | [facility] | + + + + | 2019-01-19 00:00 | Facial laceration | [facility] | + + + + | 2019-01-19 00:00 | Facial laceration | [facility] | + + + + | 2019-01-19 00:00 | Closed head injury | [facility] | + + + + | 2019-01-19 00:00 | Closed head injury | [facility] | + + + + | 2019-09-13 00:00 | Orthostatic hypotension | [facility] | + + + + | 2019-09-13 00:00 | Orthostatic hypotension | [facility] | + + + + | 2019-11-13 00:00 | postural hypotension | [facility] | | | | [facility] | + + + + | 2019-11-13 00:00 | patient encounter status | [facility] | | | (finding) | [facility] | + + + + | 2019-11-13 00:00 | Orthostatic hypotension | [facility] | | | | [facility] | + + + + | 2019-11-13 00:00 | Visit for monitoring | [facility] | | | Tikosyn therapy | [facility] | + + + + | 2020-02-10 00:00 | Laceration of left eyebrow | [facility] | | | | | + + + + | 2020-02-10 00:00 | Laceration of left eyebrow | [facility] | | | | | + + + + | 2020-02-10 00:00 | Closed fracture of head of | [facility] | | | right radius | | + + + + | 2020-02-10 00:00 | Closed fracture of head of | [facility] | | | right radius | | + + + + | 2020-02-10 00:00 | Fracture of distal end of [facility] | | | left radius | | + + + + | 2020-02-10 00:00 | Fracture of distal end of [facility] | | | left radius | | + + + + | 2020-02-10 00:00 | Fracture of triquetrum of [facility] | | | right wrist | | + + + + | 2020-02-10 00:00 | Fracture of triquetrum of [facility] | | | right wrist | | + + + + | 2021-01-03 00:00 | Vertigo | [facility] | + + + + | 2021-01-03 00:00 | Vertigo | [facility] | + + + + | [...] + + + | 2023-04-12 14:50 | 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 | [facility] | | | ANTICOAGULANTS | | + + + + | 2023-05-16 12:50 | ENCOUNTER FOR THERAPEUTIC | [facility] | | | DRUG LEVEL MON | | + + + + | 2023-05-16 12:50 | ENCOUNTER FOR THERAPEUTIC | [facility] | | | DRUG LEVEL MONITORING | | + + + + | 2023-05-16 12:50 | OTHER ASIC DESIGN ENGINEER (CURRENT) | [facility] | | | DRUG THERAPY | | + + + + | 2023-05-16 13:00 | ENCOUNTER FOR THERAPEUTIC | [facility] | | | DRUG LEVEL MON | | + + + + | 2023-05-16 13:00 | OTHER ASIC DESIGN ENGINEER (CURRENT) | [facility] | | | DRUG [...] + + + | 2023-05-17 09:50 | 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 | [facility] | | [...] + + + | 2023-06-14 09:45 | [facility] (CURRENT) USE OF | [facility] | | | ANTICOAGULANTS | | + + + + Procedures + + + + | date | description | facility | + + + + | 2020-12-11 00:00 | [place] ELECTROCARDIOGRAM | [facility] | | [...]
--- OUTSIDE RECORDS SUMMARY | ~2023-06-20 | XMS | Continuity of Care Document ---
Demographics + + + | Address | [address] | | | [place] [address] | + + + | Preferred Language | Unknown | + + + | Marital Status | | + + + | Yarsani Affiliation | Unknown | + + + | Race | White | + + + | Ethnic Group | Not or | + + + Author + + + | Author | [facility] | + + + | Organization | [facility] | + + + | Address | [address] | | | [place] [address] | + + + | Phone | | + + + Care Team Providers + + + + | Care Human Resources Operations Coordinator Name | Role | Phone | [...] | (no date) | Cortisone | [facility] | (no reaction) | (no severity) | | | | [facility] | | | | | | Hospital | | | + + + + + + Encounters No information. Functional Status No information. Immunizations + + + + | date | description | facility | + + + + | 2020-02-10 00:00 | Tdap | [facility] | + + + + | 2020-02-10 00:00 | Tdap | [facility] | + + + + Medications + + + + | date | description | facility | + + + + | 2022-12-10 00:00 | MECOBALAMIN | [facility] | + + + + | 2023-02-17 00:00 | MECOBALAMIN | [facility] | + + + + | 2022-12-10 00:00 | FLUTICASONE PROPIONATE 50 | [facility] | | | [facility] | | + + + + | 2023-02-17 00:00 | FLUTICASONE PROPIONATE 50 | [facility] | | | [facility] | | + + + + | 2022-12-10 00:00 | OMEPRAZOLE | [facility] | + + + + | 2023-02-17 00:00 | OMEPRAZOLE | [facility] | + + + + | 2022-12-10 00:00 | DOFETILIDE | [facility] | + + + + | 2023-02-17 00:00 | DOFETILIDE | [facility] | + + + + | 2020-07-24 00:00 | dofetilide 0.5 mg oral | [facility] | | | capsule | [facility] | + + + + | 2020-12-11 00:00 | fluocinonide 0.0005 mg/mg | [facility] | | | topical gel | [facility] | + + + + | 2022-12-10 00:00 | FLUDROCORTISONE ACETATE | [facility] | + + + + | 2022-12-10 00:00 | FUROSEMIDE | [facility] | + + + + | 2022-12-10 00:00 | SODIUM CHLORIDE | [facility] | + + + + | 2023-02-17 00:00 | SODIUM CHLORIDE | [facility] | + + + + | 2022-12-10 00:00 | LORATADINE | [facility] | + + + + | 2023-02-17 00:00 | LORATADINE | [facility] | + + + + | 2020-12-11 00:00 | betamethasone dipropionate | [facility] | | | 0.05 % augmented topical | [facility] | | | gel | | + + + + | 2022-12-10 00:00 | WARFARIN SODIUM | [facility] | + + + + | 2023-02-17 00:00 | WARFARIN SODIUM | [facility] | + + + + | 2018-01-03 00:00 | warfarin sodium 2.5 mg | [facility] | | | oral tablet | [facility] | + + + + | 2022-12-10 00:00 | Diclofenac Sodium | [facility] | + + + + | 2023-02-17 00:00 | Diclofenac Sodium | [facility] | + + + + | 2020-02-18 00:00 | HYDROCODONE | [facility] | | | BIT/ACETAMINOPHEN | | + + + + | 2020-02-18 00:00 | HYDROCODONE | [facility] | | | BIT/ACETAMINOPHEN | | + + + + | 2022-12-10 00:00 | HYDROCODONE | [facility] | | | BIT/ACETAMINOPHEN | | + + + + | 2017-10-13 00:00 | estrace 0.01 % vaginal | [facility] | | | cream | [facility] | + + + + | 2014-06-27 00:00 | LEVOTHYROXINE SODIUM | [facility] | + + + + | 2014-06-27 00:00 | LEVOTHYROXINE SODIUM | [facility] | + + + + | 2022-12-10 00:00 | PRAVASTATIN SODIUM | [facility] | + + + + | 2023-02-17 00:00 | PRAVASTATIN SODIUM | [facility] | + + + + | 2022-12-10 00:00 | LEVOTHYROXINE SODIUM | [facility] | + + + + | 2023-02-17 00:00 | LEVOTHYROXINE SODIUM | [facility] | + + + + | 2020-10-15 00:00 | levothyroxine sodium 0.075 | [facility] | | | mg oral tablet | [facility] | + + + + | 2018-06-15 00:00 | levothyroxine sodium 88 | [facility] | | | mcg oral tablet | [facility] | + + + + | 2022-12-10 00:00 | MIDODRINE HCL | [facility] | + + + + | 2020-12-11 00:00 | midodrine hydrochloride 5 | [facility] | | | mg oral tablet | [facility] | + + + + | 2020-04-19 00:00 | meclizine hydrochloride 25 | [facility] | | | mg oral tablet | [facility] | + + + + Problems + + + + | date | description | facility | + + + + | 2016-10-04 00:00 | paroxysmal atrial | [facility] | | | fibrillation (disorder) | [facility] | + + + + | 2016-10-04 00:00 | Paroxysmal atrial | [facility] | | | fibrillation | [facility] | + + + + | 2017-01-12 00:00 | elevated blood pressure | [facility] | | | reading without diagnosis | [facility] | | | of hypertension (situation) | | | | | | + + + + | 2017-01-12 00:00 | 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) | [facility] | + + + + | 2017-01-12 00:00 | finding of snoring | [facility] | | | | [facility] | + + + + | 2017-01-12 00:00 | 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 | + + + + | 2019-01-19 00:00 | Facial laceration | [facility] | + + + + | 2019-01-19 00:00 | Closed head injury | [facility] | + + + + | 2019-01-19 00:00 | Closed head injury | [facility] | + + + + | 2019-09-13 00:00 | Orthostatic hypotension | [facility] | + + + + | 2019-09-13 00:00 | Orthostatic hypotension | [facility] | + + + + | 2019-11-13 00:00 | postural hypotension | [facility] | | | | [facility] | + + + + | 2019-11-13 00:00 | patient encounter status | [facility] | | | (finding) | [facility] | + + + + | 2019-11-13 00:00 | Orthostatic hypotension | [facility] | | | | [facility] | + + + + | 2019-11-13 00:00 | Visit for monitoring | [facility] | | | Tikosyn therapy | [facility] | + + + + | 2020-02-10 00:00 | Laceration of left eyebrow | [facility] | | | | | + + + + | 2020-02-10 00:00 | Laceration of left eyebrow | [facility] | | | | | + + + + | 2020-02-10 00:00 | Closed fracture of head of | [facility] | | | right radius | | + + + + | 2020-02-10 00:00 | Closed fracture of head of | [facility] | | | right radius | | + + + + | 2020-02-10 00:00 | Fracture of distal end of [facility] | | | left radius | | + + + + | 2020-02-10 00:00 | Fracture of distal end of [facility] | | | left radius | | + + + + | 2020-02-10 00:00 | Fracture of triquetrum of [facility] | | | right wrist | | + + + + | 2020-02-10 00:00 | Fracture of triquetrum of [facility] | | | right wrist | | + + + + | 2021-01-03 00:00 | Vertigo | [facility] | + + + + | 2021-01-03 00:00 | Vertigo | 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] | | | | [facility] | + + + + Vital Signs [...]
[~2023-06-20 10:10] MED LIST changes: +CLOBETASOL PROP15 G1 PV; +FUROSEMIDE20 MG PO; +LIOTHYRONINE SO5 MCG PO; -MURO-12815 M1 OPTH; +MURO-12815 M1 OU; +POTASSIUM CHLO20 MEQ PO; +PREMARIN30 GM PV
[2023-06-20 11:20] LABS: BASOPHILS 0.8 % (0-2); EOSINOPHILS 1.9 % (0-6); HEMATOCRIT 37.9 % (35.0-50.0); HEMOGLOBIN 12.7 g/dL (12.0-18.0); LYMPHOCYTES 31.1 % (24-44); MCH 30.7 (27-36); MCHC 33.6 g/dl (30-36); MCV 91.2 fl (81-99); MONOCYTES 12.1 % (0-12); NEUTROPHILS 54.1 % (39-80); PLATELET COUNT 214 K/uL (140-440); RBC 4.16 M/ul (4.3-5.7); RDW 13.4 (10.5-15.0)
[2023-06-20 11:38] LABS: BILIRUBIN, URINE NEGATIVE (negative); BLOOD/HGB, URINE NEGATIVE (Negative); KETONE, URINE NEGATIVE (Negative); LEUK ESTERASE, URINE NEGATIVE (negative); NITRITE, URINE NEGATIVE (negative); PH, URINE 5.5 (5-7)
[2023-06-20 11:39] LABS: ALBUMIN 3.5 g/dL (3.4-5.0); ALBUMIN/GLOBULIN RATIO 0.95 (1.1-2.4); ALCOHOL, MEDICAL <3 ng/dL (<3); ALKALINE PHOSPHATASE 57 U/L (46-116); ALT (SGPT) 23 U/L (14-59); ANION GAP 12.4 (7-21); AST (SGOT) 19 U/L (15-37); BILIRUBIN, TOTAL 0.4 ng/dL (0.2-1.0); BUN/CREATININE RATIO 21.87 (6.0-28.6); CARBON DIOXIDE 29 mmol/L (21-32); CHLORIDE 102 mmol/L (98-107); CREATININE, SERUM 0.96 mg/dL (0.55-1.02); GLOMERULAR FILTRATION RATE,EST 59 mL/min (>60); POTASSIUM 3.4 mmol/L (3.5-5.1); PROTEIN, TOTAL 7.2 g/dL (6.4-8.2); UREA NITROGEN 21 mg/dL (7-18)
[2023-06-20 11:54] LABS: INR 1.94 (0.80-1.30); PROTIME 21.5 Sec (11.2-14.2)
[2023-06-20 14:08] VITALS: BP 145/74
--- NOTE | 2023-06-20 15:04 | NUR ---
PATIENT UP TO BATHROOM TO VOID. PATIENT IS STEADY ON HER FEET WITH SBA. PATIENT BACK TO BED, BED ALARM IS ON.
[2023-06-20] MEDS ORDERED: TIKOSYN250 MCG PO (15:43)
--- NOTE | 2023-06-20 15:44 | NUR ---
MED REC COMPLETE
[2023-06-20 18:19] VITALS: BP 157/64
[2023-06-20 19:50] VITALS: BP 105/72
--- NOTE | 2023-06-20 20:00 | NUR ---
ASSESSMENT, VS AND I&O COMPLETED. NIH 1 FOR APHASIA, CLIPBOARD AND PEN PROVIDED. PT ALERT AND ORIENTED. LUNGS CLEAR. HEART TONES IRREGULAR, HX AFIB, TELE 1 SHOWING AFIB. IV WNL, CDI, FLUSHED WELL. PT UP TO BR. PT PERFORMS OWN ADLs AND BACK TO BED. PT TOLERATES ACTIVITY WELL. ABD SOFT, NONTENDER, BOWEL TONES ACTIVE. CMS INTACT.PT STATES NO OTHER NEEDS AT THIS TIME. CALL LIGHT IN REACH, BED ALARM ON.
--- NOTE | 2023-06-20 22:37 | NUR ---
PT RESTING IN BED, EYES CLOSED. RR EVEN, UNLABORED. CALL LIGHT IN REACH, BED ALARM ON.
--- NOTE | 2023-06-20 23:57 | NUR ---
SCHEDULED MED PROVIDED. PT UP TO BR AND BACK TO BED, SBA. NO OTHER NEEDS AT THIS TIME. CALL LIGHT IN REACH.
[2023-06-21 01:50] VITALS: BP 96/50
--- NOTE | 2023-06-21 02:00 | NUR ---
VS AND I&O COMPLETED. ASSESSMENT COMPLETED, NO CHANGES. PT STILL HAVING APHASIA. ICE WATER PROVIDED. NO OTHER NEEDS. CALL LIGHT IN REACH, BED ALARM ON.
--- NOTE | 2023-06-21 03:55 | NUR ---
PT RESTING IN BED, EYES CLOSED. RR EVEN, UNLABORED. CALL LIGHT IN REACH, BED ALARM ON.
--- NOTE | 2023-06-21 05:39 | EKG ---
[facility] [address] [place] [address] Signed Sinus rhythm with occasional premature ventricular complexes and premature atrial complexes Left axis deviation Left bundle branch block Abnormal ECG When compared with ECG of 16-MAY-2023 12:56, premature atrial complexes are now present Confirmed by GINA CONNELL MD ([id number]) on 06/21/2023 5:38:51 AM Electronically Signed By: GINA CONNELL 06/21/23 0539 PATIENT NAME: JOSE HENSLEY GAURAV Electrocardiogram DATE OF : 42 PHYSICIAN: GINA CONNELL REPORT #: [id number] REPORT IS CONFIDENTIAL AND NOT TO BE RELEASED WITHOUT AUTHORIZATION
[2023-06-21 05:44] VITALS: BP 109/52
--- NOTE | 2023-06-21 06:00 | NUR ---
VS AND I&O COMPLETED. COFFEE PROVIDED. NO OTHER NEEDS AT THIS TIME. CALL LIGHT IN REACH, BED ALARM ON.
[2023-06-21 06:01] LABS: BASOPHILS 0.7 % (0-2); EOSINOPHILS 2.2 % (0-6); HEMATOCRIT 38.2 % (35.0-50.0); HEMOGLOBIN 12.4 g/dL (12.0-18.0); LYMPHOCYTES 47.5 % (24-44); MCH 29.7 (27-36); MCHC 32.5 g/dl (30-36); MCV 91.5 fl (81-99); NEUTROPHILS 38.6 % (39-80); PLATELET COUNT 225 K/uL (140-440); RBC 4.17 M/ul (4.3-5.7); RDW 13.4 (10.5-15.0)
[2023-06-21 06:14] LABS: INR 2.22 (0.80-1.30); PROTIME 23.7 Sec (11.2-14.2)
[2023-06-21 06:19] LABS: ANION GAP 7.8 (7-21); BUN/CREATININE RATIO 23.25 (6.0-28.6); CALCIUM 9.2 mg/dL (8.5-10.1); CHOLESTEROL/HDL RATIO 4.3; CREATININE, SERUM 0.86 mg/dL (0.55-1.02); POTASSIUM 3.8 mmol/L (3.5-5.1)
--- NOTE | 2023-06-21 06:33 | NUR ---
PT SLEPT WELL LAST NIGHT. SHE STILL HAS APHASIA WITH A NIH OF 1. SHE WALKS WELL IN HER ROOM AND CAN PERFORM ALL DAILY TASKS EASILY. IV WNL. PT HAS A CLIPBOARD IN HER ROOM TO HELP EXPRESS HERSELF.
--- NOTE | 2023-06-21 07:10 | NUR ---
HANDOFF REPORT RECEIVED FROM [place] MACHINE OPERATOR RN. DR. CONNELL IN ROOM.
--- NOTE | 2023-06-21 07:11 | NUR ---
PT SCHEDULED MED PROVIDED. NO OTHER NEEDS. CALL LIGHT IN REACH, BED ALARM ON.
--- NOTE | 2023-06-21 08:12 | NUR ---
CLOCK AND WATCH HANDS MOUNTER PROVIDED PT WITH MEAL TRAY. PT IS UP IN THE CHAIR FOR BREAKFAST. PERSONAL ITEMS WITHIN REACH. CLOCK AND WATCH HANDS MOUNTER ASSISTED WITH MAKING THE BED. CALL LIGHT WITHIN REACH. NO NEEDS AT THIS TIME.
[2023-06-21 09:10] VITALS: BP 98/68
--- NOTE | 2023-06-21 09:30 | NUR ---
PT SITTING IN CHAIR, TALKING ON CELL PHONE. PT SPEECH CLEAR, OCCASIONAL DIFFICULTY WITH FINDING WORDS BUT ABLE TO FIND WORDS WHEN GIVEN TIME. PT ON ROOM AIR, LUNG SOUNDS CLEAR. PT DENIES PAIN. PT REQUESTING REPEAT COVID TEST, DISCUSSED WITH PT POLICY ON TEST WITHIN 90 DAYS, PT UNDERSTANDS. PT REFUSING ASPIRIN AT THIS TIME, HAS PLACED CALL TO HER PHARMACY MANAGER AND WANTS TO CONFIRM WITH HIM BEFORE TAKING. CMS INTACT, WITHOUT EDEMA. DISCUSSED PLAN OF CARE FOR THE DAY, PT DENIES OTHER NEEDS AT THIS TIME.
[2023-06-21] MEDS ORDERED: LIPITOR10 MG PO (10:25)
--- NOTE | 2023-06-21 10:35 | NUR ---
LIVES AT [facility]. STATES SHE LIVES AT THE [place] AND USES A WALKER FOR AMBULATION WHEN SHE WALKS LONGER DISTANCES. CONTINUES TO DRIVE SELF WITHOUT DIFFICULTY. STATES IF OUTPATIENT THERAPIES ARE ORDERED, SHE WILL HAVE NO DIFFICUTLY GETTING TO APPOINTMENTS. STATES FINANCIALLY SHE IS OK, JUST SOLD HER CONDO. ALSO STATES SHE DOES NOT HAVE ANY NEEDS SHE CAN THINK OF AT THIS TIME. INSTRUCTED TO NOTIFY STAFF IF SHE THINKS OF ANYTHING. VERBALIZES UNDERSTANDING.
== END 2023-06-21 12:12 | disposition home or self-care (01) ==
LOC: ED 10:10 → MS 10:12 → ED 13:20 → MS 13:20
PROVIDERS: Emergency Medicine; ADMIT Family Medicine; ATTEND Family Medicine
DX: I63.9 Cerebral infarction, unspecified (principal); I48.91 Unspecified atrial fibrillation; U07.1 COVID-19; E03.9 Hypothyroidism, unspecified; I95.9 Hypotension, unspecified; R47.01 Aphasia; Z95.9 Presence of cardiac and vascular implant and graft, unspecified; Z88.8 Allergy status to other drugs, medicaments and biological substances; Z79.01 Long term (current) use of anticoagulants
CPT/HCPCS: 36415; 70450; 70496; 70498; 70551; 71045; 80048; 80053; 80061; 81003; 83036; 84484; 85025; 85610; 92523; 93005; 93010; 97161; 97165; G0378; G0480; Q9967

== ENCOUNTER 2023-07-18 04:12 | Observation (INO) | payer MEDICARE, OTHER ==
[~2023-07-18] VITALS: Ht 167.6 cm; Wt 74.6 kg
[~2023-07-18 04:12] MED LIST changes: +LIPITOR10 MG PO; +TIKOSYN250 MCG PO
--- OUTSIDE RECORDS SUMMARY | 2023-07-18 04:14 | XMS ---
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 Lino has no Care Guidelines for this patient. Obie VISIT COUNT (12 MO.) [address] [place] [address] Saida Catalan TOTAL 3 NOTE: Visits indicate total known visits. ED/C VISIT TRACKING (12 MO.) 07/18/2023 04:12 TANMAY [facility] [place] TYPE: Emergency COMPLAINT: - POSS STROKE 07/16/2023 12:06 TANMAY [facility] TYPE: Emergency COMPLAINT: - [facility] DIAGNOSES: - Hypotension, unspecified - Hypotension - low bp - Weakness INPATIENT VISIT TRACKING (12 MO.) 06/20/2023 10:12 TANMAY Johnson TYPE: Observation COMPLAINT: - CVA, APHASIA DIAGNOSES: - Allergy status to other drugs, medicaments and biological substances - Aphasia - Cerebral infarction, unspecified - COVID-19 - Hypotension, unspecified - Hypothyroidism, unspecified - retirement (current) use of anticoagulants - 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
[2023-07-18 04:53] LABS: BASOPHILS 1.3 % (0-2); EOSINOPHILS 4.6 % (0-6); HEMATOCRIT 36.2 % (35.0-50.0); LYMPHOCYTES 33.6 % (24-44); MCH 30.3 (27-36); MCHC 33.1 g/dl (30-36); MCV 91.4 fl (81-99); MONOCYTES 10.3 % (0-12); NEUTROPHILS 50.2 % (39-80); PLATELET COUNT 197 K/uL (140-440); RBC 3.96 M/ul (4.3-5.7); RDW 13.9 (10.5-15.0)
[2023-07-18 04:57] LABS: PARTIAL THROMBOPLASTIN TIME 42.3 Sec (22.9-41.3)
[2023-07-18 04:58] LABS: INR 2.65 (0.80-1.30); PROTIME 27.2 Sec (11.2-14.2)
[2023-07-18 05:04] LABS: ALBUMIN 3.5 g/dL (3.4-5.0); ALBUMIN/GLOBULIN RATIO 1.06 (1.1-2.4); ANION GAP 11.9 (7-21); BILIRUBIN, TOTAL 0.6 ng/dL (0.2-1.0); BUN/CREATININE RATIO 17.64 (6.0-28.6); CALCIUM 8.9 mg/dL (8.5-10.1); CREATININE, SERUM 1.02 mg/dL (0.55-1.02); POTASSIUM 3.9 mmol/L (3.5-5.1); PROTEIN, TOTAL 6.8 g/dL (6.4-8.2)
[2023-07-18 05:59] LABS: INFLUENZA B NAA NEGATIVE (NEGATIVE); RESPIRATORY SYNCYTIAL VIR NAA NEGATIVE (NEGATIVE)
--- NOTE | 2023-07-18 06:02 | EKG ---
[facility] [address] [place] [address] Signed Sinus rhythm with premature atrial complexes Prolonged QT Abnormal ECG similar to previous 07/16/23 Confirmed by GINA CONNELL MD ([id number]) on 07/18/2023 6:02:05 AM Electronically Signed By: GINA CONNELL 07/18/23 0602 PATIENT NAME: JOSE HENSLEY Electrocardiogram DATE OF : 42 PHYSICIAN: GINA CONNELL REPORT #: [id number] REPORT IS CONFIDENTIAL AND NOT TO BE RELEASED WITHOUT AUTHORIZATION
[2023-07-18 06:41] VITALS: BP 124/76
--- NOTE | 2023-07-18 07:30 | NUR ---
REPORT RECEIVED FROM NIGHT RN - PT JUST BACK TO BED FROM USING COMMODE, 2 PERSON ASSIST. PT ALERT AND ORIENTED, CALL LIGHT IN REACH.
[2023-07-18] MEDS ORDERED: TOBRAMYCIN-DEXAM5 ML OU (07:48)
--- NOTE | 2023-07-18 07:56 | NUR ---
DR. CONNELL IN TO SEE PATIENT. MRI SCREENING FORM COMPLETE. PATIENT TO HAVE MRI AT 1000.
[2023-07-18] MEDS ORDERED: LIOTHYRONINE SO5 MCG PO (08:28)
--- NOTE | 2023-07-18 08:45 | NUR ---
ECHO IN PROCESS IN ROOM
--- NOTE | 2023-07-18 09:15 | NUR ---
PT/OT IN ROOM TO EVAL PT
--- NOTE | 2023-07-18 09:57 | NUR ---
PATIENT TO MRI, WILL VISIT PATIENT WHEN SHE RETURNS.
--- NOTE | 2023-07-18 09:59 | NUR ---
PT OFF FLOOR TO MRI
--- NOTE | 2023-07-18 10:17 | NUR ---
medications reconciled using pharmacy records and patient notes. Patient is using her own Tikosyn. Please assure that it is returned to her prior to discharge
[2023-07-18 11:02] VITALS: BP 144/80
--- NOTE | 2023-07-18 11:06 | NUR ---
DR CONNELL NOTIFIED THAT THE PRELIMINARY READ ON THE MRI FOUND A "12 MM ACUTE INFARCT". THE REPORT WAS CALLED TO THE ER.
--- NOTE | 2023-07-18 11:17 | NUR ---
PT BACK FROM MRI - PT ON PHONE WITH OFFICE REGARDING WATCHMANS PROCEDURE SCHEDULED FOR NEXT WEEK. TELE IN PLACE. HR REMAINS IRREGULAR. CASE MANAGMENT UPDATED ON PT UNDERSTANDING.
--- NOTE | 2023-07-18 11:30 | NUR ---
INTO SPEAK WITH PATIENT. PATIENT RESIDES AT [facility] ALONE. PATIENT DOES HAVE A FRIEND IN TOWN WHO IS WILLING TO ASSIST HER AT DISCHARGE. PRIOR TO THE STATE OF HER SYMPTOMS 3 WEEKS AGO PATIENT WAS INDEPENDANT WITH ADLS, SHOPPING AND DRIVING. PATIENT DOES USE A WALKER TO WALK TO THE DINNING ROOM DUE TO FATIGUE FROM HER AFIB. DISCUSSED PT/OT EVALUATIONS AND NEED FOR ONGOING THERAPIES AT DISCHARGE. PATIENT IS AGREEABLE TO IP REHAB. SHE STATES SHE WOULD RATHER GO TO INPT REHAB THEN TO [facility]. PATIENT ALSO STATES SHE IS SUPPOSED TO HAVE A WATCHMANS PROCEDURE IN [place] ON Tuesday07/25/23. ADVISED THAT PATIENT SPEAK WITH DR. COLIN WELL PERSONNEL ASSOCIATE REGARDING MOVING FORWARD WITH HER PROCEDURE. ADVISED THAT I WILL SEND HER REFERRAL TO [facility] IP REHAB AND PLACE A CALL TO THEM TO DISCUSS LEAVING FOR HER PROCEDURE IF SHE PROCEEDS. WILL UPDATE PATIENT WITH INFORMATION MERON. EMMETT REBOLLAR UPDATED.
--- NOTE | 2023-07-18 11:43 | NUR ---
PT ASSISTED TO BSC WITH GAIT BELT AND 2 PERSON ASSIST. REMAINS VERY WEAK ON LEFT SIDE WITH MINIMAL CONTROL OF LEFT EXTREMITIES. BACK TO BED WITH CALL LIGHT.
[2023-07-18] MEDS ORDERED: LOW DOSE ASPIRI81 MG PO (11:44)
--- NOTE | 2023-07-18 12:05 | NUR ---
RECVD CALL FROM DODIE AT [facility], PATIENT HAS BEEN ACCEPTED. DODIE STATES THAT THEY CAN TAKE THE PATIENT TOMORROW IF SHE IS STABLE AND READY FOR DISCHARGE. PER DR. COLIN PATIENT IS STABLE AT THIS TIME. WILL DISCUSS FURTHER WITH PATIENT AND ARRANGE TRANSPORT.
--- NOTE | 2023-07-18 12:06 | NUR ---
EXERCISED MINISTRY OF PRESENCE PT TALKED OF FAMILY AND YUNIEL. PT TALKED OF MEDICAL STATE AND PLANS. CONSENTED TO PRAYER. PRAYED FOR AWARENESS OF DIVINE PRESENCE AND ONGOING BLESSING.
[2023-07-18 14:11] VITALS: BP 91/64
--- NOTE | 2023-07-18 14:28 | NUR ---
PT RESTING IN BED TALKING WITH VISTORS. LEFT EXTREMETIES REMAIN NUMB AND ATAXIA PRESENT. SPEECH MILDLY SLURRED. NO NEW NEURO SYMPTOMS. PT EDUCATED TO NOTIFY STAFF IMMEDIATLY IF SO. PT STATES SHE FEELS "YUCKY" BUT CAN NOT DESCRIBE OTHERWISE. ENCOURAGED REST.
--- NOTE | 2023-07-18 14:45 | NUR ---
PATIENT ADVISED OF ACCEPTANCE TO [facility] FOR TOMORROW. PATIENT STATES THAT DR. COLIN WAS ATTEMPTING TO CONTACT HER [facility] REGARDING HER WATCHMAN PROCEDURE SCHEDULED FOR NEXT TUESDAY. PATIENT WOULD LIKE TO TRANSFER TO [facility] FOR HER PROCEDURE NOW AND RETURN TO IP REHAB IF POSSIBLE. ADVISED THAT I DID NOT FEEL LIKE THIS WOULD BE A POSSIBILITY AND HER [facility] WOULD MOST LIKELY WANT HER TO RECOVER FROM HER ACUTE VISIT PRIOR TO HER PROCEDURE. PATIENT WOULD LIKE TO WAIT TO HEAR FROM DR. COLIN. WILL CHECK BACK IN WITH PATIENT LATER TODAY.
[2023-07-18 14:57] LABS: BILIRUBIN, URINE NEGATIVE (negative); BLOOD/HGB, URINE NEGATIVE (Negative); KETONE, URINE NEGATIVE (Negative); LEUK ESTERASE, URINE NEGATIVE (negative); NITRITE, URINE NEGATIVE (negative); PH, URINE 5.5 (5-7)
[2023-07-18 15:01] LABS: AMPHETAMINES, UR NEGATIVE (NEGATIVE); BARBITURATES, UR NEGATIVE (NEGATIVE); BENZODIAZEPINES, UR NEGATIVE (NEGATIVE); BUPRENORPHINE,UR NEGATIVE (NEGATIVE); COCAINE, UR NEGATIVE (NEGATIVE); MARIJUANA (THC), UR NEGATIVE (NEGATIVE); MDMA, UR NEGATIVE (NEGATIVE); METHADONE, UR NEGATIVE (NEGATIVE); METHAMPHETAMINE, UR NEGATIVE (NEGATIVE); OPIATES, UR NEGATIVE (NEGATIVE); OXYCODONE, UR NEGATIVE (NEGATIVE); PHENCYCLIDINE, UR NEGATIVE (NEGATIVE); TRICYCLIC ANTIDEPRESSANT, UR NEGATIVE (NEGATIVE)
--- NOTE | 2023-07-18 15:30 | NUR ---
PER EMMETT COLIN HAS SPOKEN WITH PATIENT SENIOR GL ACCOUNTANT WHO WOULD LIKE TO HOLD OFF ON THE PATIENT PROCEDURE AT THIS TIME. EMMETT REBOLLAR STATES THAT DR. COLIN HAS BEEN IN TO SEE THE PATIENT AND SHE IS AWARE OF THE OUTCOME. INTO PATIENT ROOM, CONFIRMED THAT SHE WILL BE DISCHARGING TO IP REHAB TOMORROW, PATIENT IS PLEASED. WHEN INQUIRING ABOUT TRANSPORTATION PATIENT STATES "SEND ME BY AMBULANCE, I HAVE THE INSURANCE." DISCUSSED FURTHER, PATIENT STATES SHE HAS [employer] COVERAGE. ADVISED THAT HAVING THE COVERAGE DOES NOT MEAN HER AMBULANCE TRIP WILL BE COVERED. PATIENT STILL REQUEST TO BE TRANSPORTED VIA AMBULANCE.
--- NOTE | 2023-07-18 16:47 | NUR ---
RN IN ROOM TO ADMINISTER SCHEDULED MEDICATIONS. NO CHANGE IN SYMPTOMS. PT WAKES EASILY FROM NAP AND ORIENTED. FRIEND IN ROOM ORGANIZING BELONGINGS FOR REHAB DC TOMORROW.
[2023-07-18 18:26] VITALS: BP 97/55
[2023-07-18] MEDS ORDERED: CLARITIN10 M1 PO (18:43)
[2023-07-18] MEDS ORDERED: FLONASE ALLERG9.9 ML NAS (18:44)
--- NOTE | 2023-07-18 18:47 | NUR ---
PT ASSISTED UP TO [facility] TO VOID. REMAINS 2 PERSON ASSIST. PT BACK TO BED WITH CALL LIGHT. NO NEW NEURO SYMPTOMS/DEFICITS.
[2023-07-18] MEDS ORDERED: OMEPRAZOLE20 MG PO (19:04)
--- NOTE | 2023-07-18 19:45 | NUR ---
RECEIVED REPORT FROM DAY SHIFT RN. PATIENT IS RESTING IN BED WATCHING TV. PATIENT DENIES ANY NEEDS. CALL LIGHT IN REACH.
[2023-07-18 20:43] VITALS: BP 122/74
--- NOTE | 2023-07-18 20:54 | NUR ---
PATIENTS VITALS TAKEN AND RECORDED. INTAKE AND OUTPUT RECORDED. PATIENTS PM MEDS GIVEN PER ORDER. PATIENT PROVIDED WITH FRESH ICE WATER. PATIENTS FAMILY IN ROOM. PATIENT DENIES ANY NEEDS CALL LIGHT IN REACH.
--- NOTE | 2023-07-18 22:29 | NUR ---
PATIENT CALLED TO USE THE BEDSIDE COMMODE. 2 PA HEAVY TRANSFER. THIS ALCOHOLISM WORKER AND MERCHANT MILLER GUALBERTO HELPED PATIENT. PATIENT VOIDED 250ML YELLOW URINE. PATIENT IS BACK IN BED. BED ALARM ON FOR SAFETY. DENIES OTHER NEEDS AT THIS TIME. CALL LIGHT AND SIDE TABLE WITHIN REACH.
--- NOTE | 2023-07-19 00:15 | NUR ---
PATIENT IS RESTING IN BED WITH EYES CLSOED, RR 15. CALL LIGHT IN REACH
[2023-07-19 01:50] VITALS: BP 122/87
--- NOTE | 2023-07-19 02:04 | NUR ---
PATIENT ASSISTED TO THE BSC A 2PA W/FWW. PATIENT ABLE TO VOID AND COMPLETED CARES INDEPENDENTLY. PATIENT IS BACK IN BED RESTING. PATIENT BRUSHED TEETH WITH NO ASSISTANCE. VITALS TAKEN AND RECORDED. INTAKE AND OUTPUT RECORDED. PATIENT DENIES ANY FURTHER NEEDS. CALL LIGHT IN REACH.
--- NOTE | 2023-07-19 04:09 | NUR ---
PATIENT IS RESTING IN BED WITH EYES CLSOED, RR 17. CALL LIGHT IN REACH.
[2023-07-19 05:18] VITALS: BP 107/71
--- NOTE | 2023-07-19 05:34 | NUR ---
PATIENT ASSISTED TO THE BSC A 2PA W/FWW. PATIENT ABLE TO VOID. PATIENT IS BACK IN BED RESTING. PATIENT TOLERATED ACTIVITY WELL. PATIENTS IV FLUSHED AND SL PER ORDER. PATIENT IS RESTING IN BED. PATIENT DENIES ANY NEEDS. CALL LIGHT IN REACH.
[2023-07-19 05:37] LABS: BASOPHILS 1.3 % (0-2); EOSINOPHILS 4.4 % (0-6); HEMOGLOBIN 11.9 g/dL (12.0-18.0); LYMPHOCYTES 29.2 % (24-44); MCH 30.5 (27-36); MCV 92.4 fl (81-99); MONOCYTES 8.8 % (0-12); NEUTROPHILS 56.3 % (39-80); PLATELET COUNT 203 K/uL (140-440); RDW 13.9 (10.5-15.0)
[2023-07-19 05:56] LABS: INR 2.92 (0.80-1.30); PROTIME 29.5 Sec (11.2-14.2)
[2023-07-19 06:23] LABS: ALBUMIN 3.3 g/dL (3.4-5.0); ALBUMIN/GLOBULIN RATIO 1.03 (1.1-2.4); ANION GAP 12.2 (7-21); BILIRUBIN, TOTAL 0.6 ng/dL (0.2-1.0); BUN/CREATININE RATIO 13.46 (6.0-28.6); CREATININE, SERUM 1.04 mg/dL (0.55-1.02); MAGNESIUM 2.1 mg/dL (1.8-2.4); POTASSIUM 4.2 mmol/L (3.5-5.1); PROTEIN, TOTAL 6.5 g/dL (6.4-8.2)
[2023-07-19] MEDS ORDERED: LIPITOR20 MG PO (06:53)
--- NOTE | 2023-07-19 09:00 | NUR ---
Called and scheduled EMS transport for pt to [facility] rehab to leave at 11:00. I recieved a call from Yanelis at 9:15 and she gave met he nurse number for our nurse to call report. I gave the number to the charge nurse. Yanelis now stating, the soon the pt can arrive the better. I letter her know, Dr. Morrow is completing the dc summary and orders as we speak. I will fax when completed. She denies other needs.
--- NOTE | 2023-07-19 09:51 | NUR ---
RECEIVED PT REPORT FROM SMOOTH HERNÁNDEZ AT APPROXIMATELY 0710 HOURS THIS MORNING
--- NOTE | 2023-07-19 10:07 | NUR ---
Spoke with Zoey. She has a friend in the room assisting her to pack. Pt has slight slurred speach. Updated all he ready for her to transport at 11:00. Orders and dc summary were completed when I returned to my ofice and both were faxed to Yanelis. Envelope with orders faxed to Yanelis.
[2023-07-19 10:23] VITALS: BP 112/58
--- NOTE | 2023-07-19 10:25 | NUR ---
IV'S TAKEN OUT UPON RN REQUEST. BOTH IV CATHS IN TACT. RN NOTIFIED.
--- NOTE | 2023-07-19 10:56 | NUR ---
EMS HERE TO TRANSFER PATIENT TO [facility]. PATIENT DRESSED AND READY, WENT TO BATHROOM. REPORT TO EMS, PACKET IN THEIR HAND. PATIENT BELONGINGS WITH PATIENT AND FRIEND.
== END 2023-07-19 11:00 ==
LOC: ED 04:12 → MS 04:13
PROVIDERS: Family Medicine; ADMIT Family Medicine; ATTEND Family Medicine
DX: G81.92 Hemiplegia, unspecified affecting left dominant side (principal); R94.31 Abnormal electrocardiogram [ECG] [EKG]; I67.82 Cerebral ischemia; I66.11 Occlusion and stenosis of right anterior cerebral artery; I66.21 Occlusion and stenosis of right posterior cerebral artery; Z20.822 Contact with and (suspected) exposure to COVID-19
CPT/HCPCS: 36415; 70450; 70496; 70498; 70551; 72141; 80048; 80053; 81003; 83735; 84484; 85025; 85610; 85730; 87502; 93005; 93010; 93306; 97110; 97162; 97166; 99285-25; G0378; Q9967; U0002

== ENCOUNTER 2023-08-22 11:44 | Observation (INO) | payer MEDICARE, OTHER ==
[~2023-08-22] VITALS: Ht 167.6 cm; Wt 73.2 kg
[~2023-08-22 11:44] MED LIST changes: +CLARITIN10 M1 PO; +FLONASE ALLERG9.9 ML NAS; +LIPITOR20 MG PO; +LOW DOSE ASPIRI81 MG PO; -MURO-12815 M1 OU; +PRILOSEC OTC20 MG PO; +SYSTANE HYDRATI10 ML OU; +TOBRAMYCIN-DEXAM5 ML OU
[2023-08-22 12:05] LABS: BASOPHILS 0.9 % (0-2); EOSINOPHILS 2.4 % (0-6); HEMATOCRIT 36.3 % (35.0-50.0); HEMOGLOBIN 11.9 g/dL (12.0-18.0); MCH 30.3 (27-36); MCHC 32.8 g/dl (30-36); MCV 92.2 fl (81-99); MONOCYTES 10.8 % (0-12); NEUTROPHILS 58.9 % (39-80); PLATELET COUNT 214 K/uL (140-440); RBC 3.94 M/ul (4.3-5.7); RDW 13.8 (10.5-15.0)
[2023-08-22 12:15] LABS: INR 1.79 (0.80-1.30); PROTIME 20.2 Sec (11.2-14.2)
[2023-08-22 13:24] LABS: ALBUMIN/GLOBULIN RATIO 1.29 (1.1-2.4); ANION GAP 8.9 (7-21); BILIRUBIN, TOTAL 1.1 ng/dL (0.2-1.0); BUN/CREATININE RATIO 21.21 (6.0-28.6); CALCIUM 9.2 mg/dL (8.5-10.1); CREATININE, SERUM 0.99 mg/dL (0.55-1.02); POTASSIUM 3.9 mmol/L (3.5-5.1); PROTEIN, TOTAL 7.1 g/dL (6.4-8.2)
[2023-08-22 13:44] LABS: BILIRUBIN, URINE NEGATIVE (negative); BLOOD/HGB, URINE NEGATIVE (Negative); KETONE, URINE NEGATIVE (Negative); LEUK ESTERASE, URINE NEGATIVE (negative); NITRITE, URINE NEGATIVE (negative); PH, URINE 5.5 (5-7)
[2023-08-22 13:54] LABS: EPITHELIAL CELLS, URINE SQUAMOUS 2+ /lpf (0-1+); RED BLOOD CELLS, URINE 0-1 /hpf (0-5); WHITE BLOOD CELLS, URINE 0-1 /HPF (0-5)
[2023-08-22 13:55] LABS: INFLUENZA B NAA NEGATIVE (NEGATIVE); RESPIRATORY SYNCYTIAL VIR NAA NEGATIVE (NEGATIVE)
[2023-08-22 13:56] LABS: BACTERIA, URINE RARE /hpf (negative); CASTS, URINE NONE SEEN \\lpf; COLLECTION TYPE, URINE CLEAN CATCH; CRYSTALS, URINE NONE SEEN (0-1+); REFLEX CULTURE, URINE No (No)
[2023-08-22 18:35] VITALS: BP 115/60
--- NOTE | 2023-08-22 19:03 | NUR ---
1815- THIS RN TO ER ROOM 7 RECEIVES VERBAL REPORT FROM SMOOTH DELGADILLO AND ABBY, RN. NIH PERFORMED BY ABBY, RN DURING REPORT. NIH SCORE 4. THIS RN ESCORTS PT TO MED-SURG ROOM 122 VIA GURNEY. 1828-PT ARRIVES [facility]-SURG ROOM 122. VSS. TELEMETRY PUT IN PLACE. PT TRANSFERS SELF TO BED WITH 1 PERSON ASSIST. PT RESTS IN BED CALL LIGHT AND BELONGINS IN REACH. ICE WATER PROVIDED. NO REQUESTS AT THIS TIME.
--- NOTE | 2023-08-22 19:42 | NUR ---
REPORT RECEIVED FROM DAY SHIFT RN. PT LYING IN BED ALERT AND ORIENTED. DENIES NEEDS. WHITE BOARD UPDATED. CALL LIGHT IN REACH.
--- NOTE | 2023-08-22 20:16 | NUR ---
PT REQUESTING HOME MED. FAMILY UNABLE TO BRING IN ORIGINAL BOTTLE UNTIL TOMORROW. PT HAS FIVE CAPSULES IN HER PURSE. MD NOTIFIED. TELEPHONE ORDER RECEIVED TO VERIFY WITH TELEPHARMACY AND GIVE DOSE THIS EVENING IF MED CAN BE VERIFIED. TELEPHARMACY VERIFIED MED WITH CAMERA. ORDER TO BE PLACED.
[2023-08-22 20:44] VITALS: BP 111/76
--- NOTE | 2023-08-22 20:45 | NUR ---
AT 2029 PT CALLED UP. SBA WITH FWW SLOW AMBULATE TO BATHROOM. GAY ASSIST OFF TOILET, TO SINK, SAT ON WALKER AT SINK, BRUSHED TEETH. BACK TO BED AT THIS TIME, PRIMARY RN LEATHA IN ROOM.
--- NOTE | 2023-08-22 21:06 | NUR ---
EVENING ASSESSMENT COMPLETE. SCHEDULED MEDS ADMIN PER EMAR. PT DENIES PAIN OR NAUSEA. SHELF STOCKER STRENGTH EQUAL BILAT. SLIGHT DRIFT NOTED IN LEFT EXTREMITIES. PT REPORTS CHRONIC N/T IN LEFT EXTREMITIES. PT DENIES HEADACHE OR VISUAL DISTURBANCES. TELE # [address] HR IRREGULAR IN THE 70'S. PT DENIES QUESTIONS OR CONCERNS. CALL LIGHT IN REACH. BED ALARM FOR SAFETY.
--- NOTE | 2023-08-22 23:08 | NUR ---
AT 2246 PT CALLED, SAID HER LEFT FOOT FELT COLD; SAID THAT IT HAS BEEN THIS WAY SINCE HER "FIRST STROKE", WNL, FOOT WARM; FEELING LIKE HER BOTTOM WAS IN A HOLE, REPOSITIONED SELF. VISITED WITH PT AFTER FOR 15 MIN, HER LIFE, GRANDKIDS, STROKES ETC. SHE ROLLED OVER AND WAS GOING TO TRY TO SLEEP.
[2023-08-23] VITALS (7 sets, daily range): BP systolic 97–129; BP diastolic 59–88
--- NOTE | 2023-08-23 01:03 | NUR ---
PATIENT CALLED TO USE THE TOILET. 1 PA USING WALKER. PATIENT VOIDED 250ML YELLOW URINE. PATIENT IS BACK IN BED. NO OTHER NEEDS AT THIS TIME. CALL LIGHT WITHIN REACH.
--- NOTE | 2023-08-23 01:39 | NUR ---
VS AND I&O OBTAINED. PT DENIES PAIN OR NAUSEA. NEURO ASSESSMENT UNCHANGED. SLIGHT DRIFT NOTED IN LEFT EXTREMITIES. PT REPORTS CHRONIC N/T. DENIES VISUAL DISTURBANCES OR HEADACHE. SWITCHBOARD MANAGER STRENGTH EQUAL BILAT. NO FURTHER NEEDS. CALL LIGHT IN REACH.
--- NOTE | 2023-08-23 04:47 | NUR ---
PT RESTING IN BED WITH EYES CLOSED. RESPIRATIONS EVEN. CALL LIGHT IN REACH.
--- NOTE | 2023-08-23 05:13 | NUR ---
PT UP TO BR WITH SBA AND FWW TO VOID AND QUALITY ASSURANCE TECH ASSIST. BACK TO BED, JACQUIE WELL. VS AND I&O OBTAINED. NEURO ASSESSMENT UNCHANGED. COFFEE PROVIDED PER REQUEST. NO FURTHER NEEDS.
[2023-08-23 06:12] LABS: BASOPHILS 0.9 % (0-2); HEMOGLOBIN 11.4 g/dL (12.0-18.0); LYMPHOCYTES 25.5 % (24-44); MCH 30.9 (27-36); MCHC 33.6 g/dl (30-36); MCV 91.9 fl (81-99); MONOCYTES 10.2 % (0-12); NEUTROPHILS 60.4 % (39-80); PLATELET COUNT 202 K/uL (140-440)
[2023-08-23 06:24] LABS: INR 1.71 (0.80-1.30); PROTIME 19.5 Sec (11.2-14.2)
[2023-08-23 06:28] LABS: ALBUMIN 3.5 g/dL (3.4-5.0); ALBUMIN/GLOBULIN RATIO 1.4 (1.1-2.4); ANION GAP 11.8 (7-21); BILIRUBIN, TOTAL 0.9 ng/dL (0.2-1.0); BUN/CREATININE RATIO 19.8 (6.0-28.6); CALCIUM 9.2 mg/dL (8.5-10.1); CHOLESTEROL/HDL RATIO 2.5; CREATININE, SERUM 1.01 mg/dL (0.55-1.02); MAGNESIUM 1.9 mg/dL (1.8-2.4); PHOSPHORUS, INORGANIC 4.2 mg/dL (2.5-4.9); POTASSIUM 3.8 mmol/L (3.5-5.1)
--- NOTE | 2023-08-23 07:07 | NUR ---
VERBAL REPORT RECIEVED FROM SMOOTH ZHANG. PT AWAKE AND ALERT, WATCHES TV. X-RAY LEAVES PT ROOM, LEFT WRIST X-RAY COMPLETE. CALL LIGHT IN REACH, NO REQUEST AT THIS TIME.
[2023-08-23] MEDS ORDERED: ATORVASTATIN CA40 MG PO (07:44)
[2023-08-23] MEDS ORDERED: DICLOFENAC SODI50 GM TOP (07:44)
[2023-08-23] MEDS ORDERED: MIDODRINE HCL5 MG PO (07:45)
[2023-08-23] MEDS ORDERED: LIOTHYRONINE SO5 MCG PO (07:46)
--- NOTE | 2023-08-23 09:21 | NUR ---
MED REC COMPLETE
--- NOTE | 2023-08-23 09:34 | NUR ---
PT RECIEVES TIKOSYN AFTER VERIFICATION OF MEDICATION BY PHARMACY. PHYSICAL ASSESSMENT COMPLETE. NIH SCORE 4. LUE AND LLE DRIFT, LEFT LOWER VISUAL FIELD IMPAIRED, LLE PIN PRICK REPORTED DULL. PT EATS BREAKFAST, REGULAR DIET, TOLERATES THIS WELL. VISITOR IN ROOM. PT WATCHES TV, CALL LIGHT IN REACH, NO REQUESTS AT THIS TIME.
--- NOTE | 2023-08-23 10:12 | NUR ---
standby assist to help pt to bathroom. pt puts on abd binder and deyvi hose with minial assistance. pt ambulates with fww to bathroom then back to chair. call light and blanket provided. no other needs at this time
--- NOTE | 2023-08-23 11:16 | NUR ---
ARIE JAMESON REPORTS PT BP 97/60 MAP 70, BP RE-TAKEN: 73/49 (52). PT ASYMPTOMATIC WHEN UP IN RECLINER BUT DIZZY WHEN ATTEMPTING TO GET UP WITH PHYSICAL THERPAY. PHYSICAL THERAPIST UNABLE TO COMPLETE EVALUATION DUE TO HYPOTENSION. PT STATES SHE TAKES MIDODRINE TID FOR HYPOTENSION. NOTIFIED, STATES HE WILL LOOK AT CONTINUING PT'S HOME MEDICATIONS. NO NEW ORDERS AT THIS TIME.
--- NOTE | 2023-08-23 11:51 | NUR ---
CLOBETASOL APPLIED VAGINALLY TO AFFECTED AREA.
--- NOTE | 2023-08-23 13:23 | NUR ---
PT TO BATHROOM WITH FWW, GAIT BELT AND STANDBY ASSIST, PT TOLERATES THIS WELL. PT VOIDS CLEAR YELLOW URINE. PT UP TO SINK WITH WALKER, BRUSHES TEETH. PT BACK TO BED, DENIES DIZZINESS. BELONGINGS AND CALL LIGHT IN REACH. PT WATCHES TV, NO REQUESTS AT THIS TIME.
--- NOTE | 2023-08-23 15:10 | NUR ---
IN WITH DR. BLAKE TO SEE PATIENT. PATIENT SITTING UP IN BED WATCHING TV. STATES SHE HAS BEEN DOING WELL SINCE HER DISCHARGE FROM [facility]. PATIENT HAS PERSONAL WALKER WITH HER. PATIENT STILL RESIDES AT [facility] AND PLANS TO RETURN AT DISCHARGE. PATIENT HAS BEEN RECVING HOME HEALTH PT/OT SINCE HER DC FROM REHAB. PATIENT DISCUSSING WITH DR. BLAKE THAT SHE DOES NOT FEEL COMFORTABLE DISCHARGING UNTIL HER INR IS THERAPUTIC. PATIENT TO REMAIN ON OBS WITH [facility]OPE TO DISCHARGE TOMORROW.
--- NOTE | 2023-08-23 17:19 | NUR ---
PT TO BATHROOM WITH FWW AND SBA. PT VOIDS 300MLS OF CLEAR YELLOW URINE. PT BACK TO RECLINER. CALL LIGHT IN REACH, NO REQUESTS AT THIS TIME.
--- NOTE | 2023-08-23 19:30 | NUR ---
REPORT RECEIVED FROM DAY SHIFT RN. PT LYING IN BED ALERT AND ORIENTED. DENIES NEEDS. WHITE BOARD UPDATED. CALL LIGHT IN REACH.
--- NOTE | 2023-08-23 19:58 | NUR ---
sat with Pt for about 30 min. Prayed with her and tried to encourage her. I know her personally
--- NOTE | 2023-08-23 20:30 | NUR ---
ASSISTED PATIENT TO THE BATHROOM AND BACK TO BED. V/S AND I&O'S COMPLETED. VANILLA PUDDING PROVIDED PER PATIENT'S REQUEST. NO OTHER NEEDS AT THIS TIME. CALL LIGHT WITHIN REACH.
--- NOTE | 2023-08-23 21:33 | NUR ---
EVENING ASSESSMENT COMPLETE. SCHEDULED MEDS ADMIN PER EMAR. PT DENIES PAIN OR NAUSEA. NEURO ASSESSMENT COMPLETE. LEFT SIDE DRIFT NOTED. PT REPORTS LEFT FOOT "FEELS HEAVY" DULLED SENSATION NOTED. RELIEF MAN STRENGTH EQUAL BILAT. PT DENIES VISUAL DISTURBANCES. TELE #[address] AFIB. HR 70'S. WARM BLANKET PROVIDED. PT DENIES QUESTIONS OR CONCERNS. CALL LIGHT IN REACH.
--- NOTE | 2023-08-23 22:29 | EKG ---
[facility] [address] [facility] [place] [address] Signed Sinus rhythm with marked sinus arrhythmia Prolonged QT Abnormal ECG When compared with ECG of 18-JUL-2023 04:21, premature atrial complexes are no longer present Confirmed by Edouard Blake MD () on 08/23/2023 10:28:43 PM Electronically Signed By: EDOUARD BLAKE MD 08/23/23 2229 PATIENT NAME: JOSE HENSLEY Electrocardiogram DATE OF : 42 PHYSICIAN: EDOUARD BLAKE MD REPORT #: [id number] REPORT IS CONFIDENTIAL AND NOT TO BE RELEASED WITHOUT AUTHORIZATION
--- NOTE | 2023-08-23 23:00 | NUR ---
SBA TO THE BATHROOM AND BACK TO BED. NO FURTHER NEEDS AT THIS TIME.
[2023-08-24 01:19] VITALS: BP 135/68
--- NOTE | 2023-08-24 01:21 | NUR ---
PATIENT USED THE BATHROOM AND VOIDED 300ML YELLOW URINE THEN BACK TO BED. V/S TAKEN AND CHARTED. NO FURTHER NEEDS AT THIS TIME.
--- NOTE | 2023-08-24 03:45 | NUR ---
PT RESTING IN BED WITH EYES CLOSED. RESPIRATIONS EVEN. TELE #[address] HR 70'S. IRREGULAR. CALL LIGHT IN REACH.
--- NOTE | 2023-08-24 04:00 | NUR ---
SBA PATIENT UP TO THE BATHROOM VOIDED 300ML YELLOW URINE AND BACK TO BED. NO OTHER NEEDS AT THIS TIME.
[2023-08-24 05:47] LABS: BASOPHILS 1.1 % (0-2); EOSINOPHILS 4.1 % (0-6); HEMATOCRIT 34.9 % (35.0-50.0); HEMOGLOBIN 11.7 g/dL (12.0-18.0); LYMPHOCYTES 26.8 % (24-44); MCH 30.6 (27-36); MCHC 33.4 g/dl (30-36); MCV 91.7 fl (81-99); MONOCYTES 11.3 % (0-12); NEUTROPHILS 56.7 % (39-80); PLATELET COUNT 199 K/uL (140-440); RBC 3.81 M/ul (4.3-5.7); RDW 13.8 (10.5-15.0)
[2023-08-24 05:57] LABS: INR 1.54 (0.80-1.30); PROTIME 17.9 Sec (11.2-14.2)
[2023-08-24 06:01] LABS: ALBUMIN 3.3 g/dL (3.4-5.0); ALBUMIN/GLOBULIN RATIO 1.22 (1.1-2.4); ANION GAP 12.1 (7-21); BILIRUBIN, TOTAL 0.9 ng/dL (0.2-1.0); BUN/CREATININE RATIO 23.65 (6.0-28.6); CREATININE, SERUM 0.93 mg/dL (0.55-1.02); POTASSIUM 4.1 mmol/L (3.5-5.1)
[2023-08-24 06:42] VITALS: BP 99/48
--- NOTE | 2023-08-24 06:53 | NUR ---
PT RESTING WITH EYES CLOSED. AWAKENS EASILY. SCHEDULED MEDS ADMIN PER EMAR. PT DENIES NEEDS. CALL LIGHT IN REACH.
--- NOTE | 2023-08-24 07:15 | NUR ---
PT WAS AWAKE IN BED AND SHARED HER CONCERN ABOUT HER INR OF 1.54 AND HAS REQUESTED TO SPEAK TO PHARMACIST VIKASH IF POSSIBLE TODAY PT IS A+O REQUESTED COFFEE WITH 3 CREAMS. NO OTHER CARES ARE NEEDED OR REQUESTED AT THIS TIME. CALL LIGHT WITHIN REACH.
--- NOTE | 2023-08-24 07:27 | NUR ---
recieved shift report from rn. patient is currently resting. even and unlabored breathing noticed. no cares needed at this time . call light within reach
--- NOTE | 2023-08-24 08:18 | NUR ---
PT HAS WEAKNESS ON LEFT SIDE. HEEL MOSER TEST SHOWS SLIGHT AMOUNT OF DRIFT. ASSESSMNENT COMPLETE MEDS COMPLETE. ON RA A+O. HEART SOUNDS IRREGULAR PT HAS AFIB. NO OTHER CONCERNS NOTED. NO OTHER CARES NEEDED OR REQUESTED AT THIS TIME. CALL LIGHT WITHIN REACH.
--- NOTE | 2023-08-24 10:32 | NUR ---
PT IS VISITING WITH HER FRIEND. WHEN ASKED IF SHE NEEDED ANYTHING PT STATED SHE WAS OK AND WAS VERY HAPPY THAT SHE SPOKE WITH VIKASH THE PHARMACIST. NO OTHER CARES ARE NEEDED AR REQUESTED AT THIS TIME. CALL LIGHT WITHIN REACH
[2023-08-24 10:55] VITALS: BP 108/64
--- NOTE | 2023-08-24 11:09 | NUR ---
UR NOTE: MCG MET STROKE ISCHEMIC (ISC) OBSERVATION
--- NOTE | 2023-08-24 11:10 | NUR ---
Into room as Dr Jaramillo is discussing plan for dc for this pt. Pt declining to dc as she wants her INR to be higher prior to dc. Asmita from the coumadin clinic was in and also discussed with pt. I asked if the pt would like to complete her blood draws at the coumadin clinic or with Home Health. She states she likes going into the clinic to see the staff and she has a ride. Per Dr. Jaramillo pt will stay one more night.
--- NOTE | 2023-08-24 11:21 | NUR ---
PATIENT IS ON A REGULAR DIET. SHE PREFERS SMALL PORTIONS, BLACK COFFEE WITH 3 CREAMERS WITH BKFST AND LUNCH, NO SUGAR SINCE SHE HAS HER OWN IN HER ROOM, NO MILK TO DRINK - SHE WILL ASK FOR MILK IF SHE WANTS CEREAL. PROVIDED HER A REGULAR DIET MENU SINCE SHE DIDN'T HAVE ONE IN HER ROOM. 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 SHE ALSO PREFERS 2 SALT PACKETS AT EACH MEAL. THESE PREFERENCES ARE ALL NOTED IN THE MEAL IQ. THERE ARE NO OTHER NUTRITION CONCERNS AT THIS TIME.
--- NOTE | 2023-08-24 11:37 | NUR ---
PT ON PHONE WITH SON. DID NOT INTERRUPT. PRAYED FOR CESSATION OF STROKES AND ONGOING BLESSING.
--- NOTE | 2023-08-24 11:38 | NUR ---
PHYSICAL THERAPIST CAME TO REPORT THAT PT STATES SHE WAS FEELING DROWSY AND DRUNK. AFTER ASESSING THE SITUATION ZOFRAN WAS GIVEN.
--- NOTE | 2023-08-24 11:55 | NUR ---
PT IS CURRENTLY IN ROOM WITH PHYSICAL THERAPIST.
--- NOTE | 2023-08-24 12:25 | NUR ---
PATIENT SAID SHE WOULD LIKE TO TAKE A SHOWER SOMETIME AFTER LUNCH.
--- NOTE | 2023-08-24 12:57 | NUR ---
PT IS SITTING UP IN CHAIR AND VISITING WITH HER FAMILY. PATIENT MEDS WERE GIVEN. PT Q4 NEURO ASSESSMENT COMPLETE. PT STILL HAS NUMBNESS AND TINGLING IN LEFT SIDE EXTREMETIES. NO OTHER CARES NEEDED OR REQUESTED AT THIS TIME. CALL LIGHT WITHIN REACH
[2023-08-24 14:05] VITALS: BP 92/55
--- NOTE | 2023-08-24 15:27 | NUR ---
Call light answered, patient requests to take a shower. This RN stands by as patient ambulates to with FWW and mainly performs shower self sufficiently. This RN helps with infrequent requests. Patient able to do own skin and oral care. Dresses self. Tele in place. IV SL in place WNL. Linens changed and room tidied. Patient denies further needs, call light in reach.
--- NOTE | 2023-08-24 16:10 | NUR ---
Spoke with Zoey. Discussed I have returned now as she has several people in her room earlier. Pt states appreciation as post her stroke she has difficulty following conversation if there is several people. Asked her if she is aware she is here as OBS pt and she states she is. She was told this on admission. Updated OBS pt can be billed at a slightly hire rate and I just wanted her to be aware. She states she is aware, but she does not want to leave until her INR is hire. She feels she should be closer to 3 than 2. She does plan on return to her home at [facility]. She denies needs to go home when she leaves. As she stated before, she thinks very highly of pharmacist Asmita and wants to cont. to go to the coumadin clinic for follow up.
--- NOTE | 2023-08-24 16:22 | NUR ---
UR NOTE: MCG MEETS ALL DISCHARGE CRITERIA FOR STROKE ISCHEMIC OBSERVATION PHYSICAN AWARE
--- NOTE | 2023-08-24 17:37 | NUR ---
PT ADMITTED FOR POST CVA OBSERVATION. MAIN GOAL: ACHIEVE THERAPEUTIC PT/INR. DOSING WARFARIN PER PHARMACY. PT A+O, ON ROOM AIR, LUNGS CLEAR, BOWEL TONES ACTIVE, SENNA ADDED TO EMAR PER NIO, REGULAR DIET. VOIDING QS. IV SL WNL. PT/OT. Q4 NEURO CHECKS. NIH ON DC. L SIDE WEAKNESS PRESENT, NO OTHER DEFECITS NOTED THIS SHIFT. SKIN INTACT. HX AFIB; ON TELE. HOME MEDS IN LOCKBOX/KITS. WILL RETURN TO [place] ON DC. SHOWERED TODAY. CALLS APPROPRIATELY.
[2023-08-24 17:58] VITALS: BP 119/72
--- NOTE | 2023-08-24 18:17 | NUR ---
PT IS CURRENTLY IN ROOM WITH SON. WHEN ASKED IF SHE NEEDED ANYTHING PT STATED SHE WAS FINE. NO OTHER CARES ARE NEEDED OR REQUESTED AT THIS TIME. CALL LIGHT WITHIN REACH
--- NOTE | 2023-08-24 19:10 | NUR ---
patient resting in bed, visiting with son, no complaints, no noted distress, report provided by dayshift RN, call light within reach.
[2023-08-24 20:32] VITALS: BP 129/56
--- NOTE | 2023-08-24 21:02 | NUR ---
CALL LIGHT ANSWERED, pt UP SBA WITH FWW TO BATHROOM TO VOID. pt VOIDED 400MLS YELLOW URINE. pt THEN AMBULATED SBA WITH FWW TO SINK AND WASHED FACE, BRUSHED TEETH, CHANGED INTO HER HOSPITAL GOWN FROM HER REGULAR STREET CLOTHES. pt THEN WENT BACK TO [facility] TO HAVE POTENTIAL BM, CALL LIGHT IN REACH.
--- NOTE | 2023-08-24 21:14 | NUR ---
pt HAD A SMALL TO MEDIUM SIZED BM, BROWN IN COLOR. pt BACK IN BED, DIRTY CLOTHES PLACED IN LABELED pt BELONGINGS BAG. CALL LIGHT IN REACH AND WARM BLANKET PROVIDED. PRIMARY RN JUANITA UPDATED AND IN ROOM FOR MED PASS.
--- NOTE | 2023-08-24 21:52 | NUR ---
Patient visiting with son, VSS, denies pain, no noted slurred speech or facial droop, alert and oriented, left arm and left leg weak, slight tremor/shaky with fine motor task from both arm and leg noted. Continues to feel heaviness mainly in left leg, call light in reach. assisted to prepare for bed and son as gone home now.
--- NOTE | 2023-08-25 00:25 | NUR ---
Called to patients room, Patient up to BR with FWW and one person assist, gait unsteady, Patient states she has been sleeping well. lights out and call light in reach.
--- NOTE | 2023-08-25 02:00 | NUR ---
Patient appears a sleep, no noted discomfort or distress, lights are out and call light in reach.
--- NOTE | 2023-08-25 04:13 | NUR ---
Patient appears a sleep, comfortable, no noted distress, RR-16, Tele intact and HR 75. call light in reach.
--- NOTE | 2023-08-25 05:24 | NUR ---
Patient assisted up to BR using FWW and 1 person SBA. VSS, left sided weakness without change, has slept well tonight. lights out and call light in reach.
[2023-08-25 05:25] VITALS: BP 99/64
[2023-08-25 05:50] LABS: INR 1.92 (0.80-1.30); PROTIME 21.2 Sec (11.2-14.2)
--- NOTE | 2023-08-25 07:27 | NUR ---
Patient in bed resting, eyes closed, respirations even and non labored. Patient has no notable distress. Personal supplies and call light within reach.
[2023-08-25 08:47] VITALS: BP 100/57
--- NOTE | 2023-08-25 10:07 | NUR ---
PT IN GOOD SPIRITS. EXERCISED MINISTRY OF PRESENCE PT TALKED OF FAMILY. INIDCATES SHE HAS GOOD SUPPORT. CONSENTED TO PRAYER. GAVE THANKS FOR HEALING AND FAMILY. PRAYED FOR ONGOING HEALING AND ABIDING PEACE.
== END 2023-08-25 11:50 | disposition home or self-care (01) ==
LOC: ED 11:44 → MS 11:46
PROVIDERS: Emergency Medicine; ADMIT Family Medicine; ATTEND Family Medicine
DX: I63.9 Cerebral infarction, unspecified (principal); R20.9 Unspecified disturbances of skin sensation; I48.91 Unspecified atrial fibrillation; E11.9 Type 2 diabetes mellitus without complications; R79.1 Abnormal coagulation profile; M25.532 Pain in left wrist; E03.9 Hypothyroidism, unspecified; I50.9 Heart failure, unspecified; Z88.8 Allergy status to other drugs, medicaments and biological substances; Z88.1 Allergy status to other antibiotic agents; Z79.01 Long term (current) use of anticoagulants; Z79.899 Other long term (current) drug therapy; Z20.822 Contact with and (suspected) exposure to COVID-19
CPT/HCPCS: 36415; 70450; 70496; 70498; 70551; 71045; 73110; 80053; 80061; 81001; 83036; 83735; 84100; 85025; 85610; 85730; 87502; 93005; 93010; 97116; 97162; 97166; 99285-25; C9803; G0378; Q9967; U0002

== ENCOUNTER 2023-09-12 11:45 | Emergency (ER) | payer MEDICARE, OTHER ==
[~2023-09-12] VITALS: Ht 167.6 cm; Wt 72.8 kg
[~2023-09-12 11:45] MED LIST changes: +ATORVASTATIN CA40 MG PO; +DICLOFENAC SODI50 GM TOP
--- OUTSIDE RECORDS SUMMARY | 2023-09-12 11:47 | XMS ---
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 Lino has no Care Guidelines for this patient. Obie VISIT COUNT (12 MO.) [address] Saida Catalan (Archana Magaña) TOTAL 5 NOTE: Visits indicate total known visits. ED/C VISIT TRACKING (12 MO.) 09/12/2023 11:45 [facility] [place] TYPE: Emergency COMPLAINT: - POSS STROKE 08/22/2023 11:45 [facility] [place] TYPE: Emergency COMPLAINT: - POSS STROKE, ALL L SIDE FEELS HEAVY 07/18/2023 04:12 [facility] [place] TYPE: Emergency COMPLAINT: - POSS STROKE 07/16/2023 12:06 [facility] [place] TYPE: Emergency COMPLAINT: - DIZZINESS DIAGNOSES: - Allergy status to other antibiotic agents - Allergy status to other drugs, medicaments and biological substances - Dizziness and giddiness - Heart failure, unspecified - jail (current) use of anticoagulants - Orthostatic hypotension - Other terminal clerk (current) drug therapy - Paresthesia of skin 06/18/2023 15:55 [facility] Archana MERCADO ([place]) TYPE: Emergency DIAGNOSES: - Hypotension, unspecified - Hypotension - low bp - Weakness INPATIENT VISIT TRACKING (12 MO.) 08/22/2023 11:46 TANMAY Johnson TYPE: Observation COMPLAINT: - CVA DIAGNOSES: - Abnormal coagulation profile - Allergy status to other antibiotic agents - Allergy status to other drugs, medicaments and biological substances - Cerebral infarction, unspecified - Contact with and (suspected) exposure to COVID-19 - Heart failure, unspecified - Hypothyroidism, unspecified - jail (current) use of anticoagulants - Other prison (current) drug therapy - Pain in left wrist - Type 2 diabetes mellitus without complications - Unspecified atrial fibrillation - Unspecified disturbances of skin sensation 07/19/2023 12:17 [facility] Archana MERCADO ([place]) TYPE: Inpatient Rehab DIAGNOSES: - Ataxia, unspecified - Dysphagia, unspecified - Hemiplegia, unspecified affecting left nondominant side - Olecranon bursitis, left elbow - Orthostatic hypotension - Other cerebral infarction due to occlusion or stenosis of small artery - Other malaise - Other reduced mobility - Other specified health status - Pain in left shoulder - Paroxysmal atrial fibrillation - Presence of prosthetic heart valve - Unsteadiness on feet - CVA 07/18/2023 04:13 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
[2023-09-12] MEDS ORDERED: ATORVASTATIN CA20 MG PO (12:03)
[2023-09-12] MEDS ORDERED: MIDODRINE HCL2.5 MG PO (12:04)
[2023-09-12 12:25] LABS: EOSINOPHILS 2.3 % (0-6); HEMATOCRIT 33.9 % (35.0-50.0); HEMOGLOBIN 11.4 g/dL (12.0-18.0); LYMPHOCYTES 27.3 % (24-44); MCH 30.9 (27-36); MCHC 33.7 g/dl (30-36); MCV 91.8 fl (81-99); MONOCYTES 10.4 % (0-12); PLATELET COUNT 216 K/uL (140-440); RBC 3.69 M/ul (4.3-5.7); RDW 13.9 (10.5-15.0)
[2023-09-12 12:35] LABS: PARTIAL THROMBOPLASTIN TIME 32.8 Sec (22.9-41.3)
[2023-09-12 12:36] LABS: INR 1.93 (0.80-1.30); PROTIME 21.2 Sec (11.2-14.2)
[2023-09-12 12:42] LABS: ALBUMIN 3.7 g/dL (3.4-5.0); ALBUMIN/GLOBULIN RATIO 1.32 (1.1-2.4); ANION GAP 11.1 (7-21); BILIRUBIN, TOTAL 0.9 ng/dL (0.2-1.0); BUN/CREATININE RATIO 21.97 (6.0-28.6); CALCIUM 8.7 mg/dL (8.5-10.1); CREATININE, SERUM 0.91 mg/dL (0.55-1.02); POTASSIUM 4.1 mmol/L (3.5-5.1); PROTEIN, TOTAL 6.5 g/dL (6.4-8.2)
[2023-09-12 13:42] LABS: BILIRUBIN, URINE NEGATIVE (negative); BLOOD/HGB, URINE NEGATIVE (Negative); KETONE, URINE NEGATIVE (Negative); LEUK ESTERASE, URINE NEGATIVE (negative); NITRITE, URINE NEGATIVE (negative)
[2023-09-12 13:57] LABS: AMPHETAMINES, URINE NEGATIVE (NEGATIVE); BARBITURATES, URINE NEGATIVE (NEGATIVE); BENZODIAZEPINE, URINE NEGATIVE (NEGATIVE); BUPRENORPHINE, URINE NEGATIVE (NEGATIVE); CANNABINOID, URINE NEGATIVE (NEGATIVE); COCAINE, URINE NEGATIVE (NEGATIVE); ECSTASY, URINE NEGATIVE (NEGATIVE); FENTANYL, URINE NEGATIVE (NEGATIVE); METHADONE, URINE NEGATIVE (NEGATIVE); OPIATES, URINE NEGATIVE (NEGATIVE); OXYCODONE, URINE NEGATIVE (NEGATIVE); PHENCYCLIDINE, URINE NEGATIVE (NEGATIVE)
[2023-09-12 15:30] VITALS: BP 151/79
--- NOTE | 2023-09-13 06:54 | EKG ---
[facility] [address] [facility] [address] [place] [address] Signed Sinus rhythm with occasional premature ventricular complexes and premature atrial complexes Left axis deviation Left bundle branch block Abnormal ECG When compared with ECG of 22-AUG-2023 12:32, premature ventricular complexes are now present premature atrial complexes are now present Left bundle branch block is now present Confirmed by ODELL RAMIREZ MD ([id number]) on 09/13/2023 6:54:38 AM Electronically Signed By: ODELL RAMIREZ 09/13/23 0654 PATIENT NAME: AYDENJOSE Electrocardiogram DATE OF : 42 PHYSICIAN: ODELL RAMIREZ REPORT #: [id number] REPORT IS CONFIDENTIAL AND NOT TO BE RELEASED WITHOUT AUTHORIZATION
== END 2023-09-12 15:30 | disposition home or self-care (01) ==
LOC: ED 11:45
PROVIDERS: Emergency Medicine
DX: I69.398 Other sequelae of cerebral infarction (principal); I50.9 Heart failure, unspecified; E03.9 Hypothyroidism, unspecified; I48.91 Unspecified atrial fibrillation; Z88.8 Allergy status to other drugs, medicaments and biological substances; Z88.1 Allergy status to other antibiotic agents; Z79.01 Long term (current) use of anticoagulants; Z79.899 Other long term (current) drug therapy
CPT/HCPCS: 36415; 70450; 70496; 70498; 71045; 80053; 80307; 81003; 84484; 85025; 85610; 85730; 93005; 93010; Q9967

== ENCOUNTER 2024-04-20 17:43 | Emergency (ER) | payer MEDICARE, OTHER ==
[~2024-04-20] VITALS: Ht 167.6 cm; Wt 75.5 kg
[~2024-04-20 17:43] MED LIST changes: +ATORVASTATIN CA20 MG PO
[2024-04-20 18:57] LABS: BASOPHILS 1.2 % (0-2); EOSINOPHILS 3.4 % (0-6); HEMATOCRIT 35.1 % (35.0-50.0); HEMOGLOBIN 11.6 g/dL (12.0-18.0); LYMPHOCYTES 31.1 % (24-44); MCH 30.2 (27-36); MCV 91.6 fl (81-99); MONOCYTES 9.1 % (0-12); NEUTROPHILS 55.2 % (39-80); PLATELET COUNT 207 K/uL (140-440); RBC 3.84 M/ul (4.3-5.7); RDW 14.1 (10.5-15.0)
[2024-04-20 19:21] LABS: ALBUMIN 3.6 g/dL (3.4-5.0); ALBUMIN/GLOBULIN RATIO 1.2 (1.1-2.4); ANION GAP 10.1 (7-21); BILIRUBIN, TOTAL 1.1 ng/dL (0.2-1.0); BUN/CREATININE RATIO 23.23 (6.0-28.6); CREATININE, SERUM 0.99 mg/dL (0.55-1.02); MAGNESIUM 2.2 mg/dL (1.8-2.4); POTASSIUM 4.1 mmol/L (3.5-5.1); PROTEIN, TOTAL 6.6 g/dL (6.4-8.2)
[2024-04-20 19:25] LABS: INR 2.55 (0.80-1.30)
[2024-04-20 19:57] LABS: BILIRUBIN, URINE NEGATIVE (negative); BLOOD/HGB, URINE TRACE-I (Negative); KETONE, URINE NEGATIVE (Negative); LEUK ESTERASE, URINE NEGATIVE (negative); NITRITE, URINE NEGATIVE (negative)
[2024-04-20 20:05] LABS: BACTERIA, URINE NONE SEEN /hpf (negative); CASTS, URINE NONE SEEN \\lpf; COLLECTION TYPE, URINE CLEAN CATCH; CRYSTALS, URINE NONE SEEN (0-1+); REFLEX CULTURE, URINE No (No)
[2024-04-20] MEDS ORDERED: MECLIZINE HCL25 MG PO (21:56)
[2024-04-20] MEDS ORDERED: MECLIZINE HCL 25 MG TAB PO ONE (22:00)
[2024-04-21 07:00] VITALS: BP 104/67
--- NOTE | 2024-04-21 22:18 | EKG ---
[facility] [address] [place] [address] Signed Sinus bradycardia with marked sinus arrhythmia Otherwise normal ECG When compared with ECG of 05-JAN-2024 14:29, premature atrial complexes are no longer present Confirmed by Edouard Blake MD () on 04/21/2024 10:18:11 PM Electronically Signed By: EDOUARD BLAKE MD 04/21/24 2218 PATIENT NAME: HENSLEYJOSE Electrocardiogram DATE OF : 42 PHYSICIAN: EDOUARD BLAKE MD REPORT #: [id number] REPORT IS CONFIDENTIAL AND NOT TO BE RELEASED WITHOUT AUTHORIZATION
== END 2024-04-21 07:00 | disposition home or self-care (01) ==
LOC: ED 17:43
PROVIDERS: Emergency Medicine; Family Medicine
DX: R42 Dizziness and giddiness (principal); I50.9 Heart failure, unspecified; I48.91 Unspecified atrial fibrillation; E03.9 Hypothyroidism, unspecified; Z79.01 Long term (current) use of anticoagulants; Z79.890 Hormone replacement therapy; Z79.899 Other long term (current) drug therapy; Z88.1 Allergy status to other antibiotic agents; Z88.8 Allergy status to other drugs, medicaments and biological substances
CPT/HCPCS: 36415; 70450; 70496; 70498; 80053; 81001; 83735; 84484; 85025; 85610; 93005; 93010; A9270; Q9967

== ENCOUNTER 2024-08-17 14:05 | Emergency (ER) | payer MEDICARE, OTHER ==
[~2024-08-17] VITALS: Ht 167.6 cm; Wt 74.0 kg
[2024-08-17 17:06] VITALS: BP 125/98
== END 2024-08-17 17:07 | disposition home or self-care (01) ==
LOC: ED 14:05
DX: I63.81 Other cerebral infarction due to occlusion or stenosis of small artery (principal); G81.94 Hemiplegia, unspecified affecting left nondominant side; I50.9 Heart failure, unspecified; Z95.2 Presence of prosthetic heart valve; Z96.659 Presence of unspecified artificial knee joint; Z88.8 Allergy status to other drugs, medicaments and biological substances; Z79.01 Long term (current) use of anticoagulants; Z79.899 Other long term (current) drug therapy; Z79.890 Hormone replacement therapy
CPT/HCPCS: 70551; 99285-25

== ENCOUNTER 2024-08-20 14:57 | Emergency (ER) | payer MEDICARE, OTHER ==
[~2024-08-20] VITALS: Ht 167.6 cm; Wt 75.0 kg
--- OUTSIDE RECORDS SUMMARY | 2024-08-20 15:03 | XMS ---
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 Lino has no Care Guidelines for this patient. Obie VISIT COUNT (12 MO.) 7 [facility] TOTAL 7 NOTE: Visits indicate total known visits. ED/C VISIT TRACKING (12 MO.) [facility] [place] [facility] COMPLAINT: - LOW HEART RATE 08/17/2024 14:06 [facility] [place] TYPE: Emergency COMPLAINT: - LT HAND NUMBNESS 04/20/2024 17:44 [facility] [place] TYPE: Emergency COMPLAINT: - DIZZY, WEAKNESS DIAGNOSES: - Allergy status to other antibiotic agents - Allergy status to other drugs, medicaments and biological substances - Dizziness and giddiness - Heart failure, unspecified - Hormone replacement therapy - Hypothyroidism, unspecified - senior care (current) use of anticoagulants - Other senior living (current) drug therapy - Unspecified atrial fibrillation 02/28/2024 10:01 [facility] [place] TYPE: Emergency COMPLAINT: - LOW B/P DIAGNOSES: - Allergy status to other antibiotic agents - Allergy status to other drugs, medicaments and biological substances - Apnea, not elsewhere classified - Encounter for therapeutic drug level monitoring - Heart failure, unspecified - Hormone replacement therapy - Hypotension, unspecified - Hypothyroidism, unspecified - oil heaterman (current) use of anticoagulants - senior care (current) use of inhaled steroids - Other termite helper (current) drug therapy - Personal history of transient ischemic attack (TIA), and cerebral infarction without residual deficits - Unspecified atrial fibrillation 10/27/2023 13:26 [facility] [place] TYPE: Emergency COMPLAINT: - POSS STROKE DIAGNOSES: - Allergy status to other antibiotic agents - Allergy status to other drugs, medicaments and biological substances - Allergy status to penicillin - Coagulation defect, unspecified - Difficulty in walking, not elsewhere classified - Heart failure, unspecified - Hypothyroidism, unspecified - oil heaterman (current) use of anticoagulants - oil heaterman (current) use of inhaled steroids - Other termite helper (current) drug therapy - Personal history of transient ischemic attack (TIA), and cerebral infarction without residual deficits - Unspecified atrial fibrillation - Weakness 09/12/2023 11:45 [facility] [place] TYPE: Emergency COMPLAINT: - POSS STROKE DIAGNOSES: - Allergy status to other antibiotic agents - Allergy status to other drugs, medicaments and biological substances - Anesthesia of skin - Heart failure, unspecified - Hypothyroidism, unspecified - senior care (current) use of anticoagulants - Other termite helper (current) drug therapy - Other sequelae of cerebral infarction - Unspecified atrial fibrillation 08/22/2023 11:45 [facility] [place] TYPE: Emergency COMPLAINT: - POSS STROKE, ALL L SIDE FEELS HEAVY INPATIENT VISIT TRACKING (12 MO.) 08/22/2023 11:46 [facility] [place] TYPE: Observation COMPLAINT: - CVA DIAGNOSES: - Abnormal coagulation profile - Allergy status to other antibiotic agents - Allergy status to other drugs, medicaments and biological substances - Cerebral infarction, unspecified - Contact with and (suspected) exposure to COVID-19 - Heart failure, unspecified - Hypothyroidism, unspecified - oil heaterman (current) use of anticoagulants - Other senior living (current) drug therapy - Pain in left wrist - Type 2 diabetes mellitus without complications - Unspecified atrial fibrillation - Unspecified disturbances of skin sensation [email or web address]
[2024-08-20 16:50] LABS: EOSINOPHILS 2.1 % (0-6); HEMOGLOBIN 11.6 g/dL (12.0-18.0); LYMPHOCYTES 29.9 % (24-44); MCH 30.8 (27-36); MCV 90.8 fl (81-99); PLATELET COUNT 196 K/uL (140-440); RBC 3.75 M/ul (4.3-5.7); RDW 13.4 (10.5-15.0)
[2024-08-20 16:59] LABS: INR 3.26 (0.80-1.30); PROTIME 32.9 Sec (11.2-14.2)
[2024-08-20 17:01] LABS: PARTIAL THROMBOPLASTIN TIME 38.5 Sec (22.9-41.3)
[2024-08-20 17:04] LABS: ALBUMIN 3.6 g/dL (3.4-5.0); ALBUMIN/GLOBULIN RATIO 1.2 (1.1-2.4); BILIRUBIN, TOTAL 0.9 ng/dL (0.2-1.0); BUN/CREATININE RATIO 20.75 (6.0-28.6); CALCIUM 8.9 mg/dL (8.5-10.1); CREATININE, SERUM 1.06 mg/dL (0.55-1.02); MAGNESIUM 2.2 mg/dL (1.8-2.4); PROTEIN, TOTAL 6.6 g/dL (6.4-8.2)
[2024-08-20 18:25] VITALS: BP 139/102
--- NOTE | 2024-08-23 21:31 | EKG ---
[facility] [address] [facility] [place] [address] Signed Sinus rhythm with marked sinus arrhythmia Cannot rule out Anterior infarct , age undetermined Abnormal ECG When compared with ECG of 20-APR-2024 18:30, No significant change was found Confirmed by Yvette Saldana MD ([id number]) on 08/23/2024 9:31:51 PM Electronically Signed By: YVETTE SALDANA DO 08/23/242130 PATIENT NAME: JOSE HENSLEY Electrocardiogram DATE OF : 42 PHYSICIAN: YVETTE SALDANA DO REPORT #: [id number] REPORT IS CONFIDENTIAL AND NOT TO BE RELEASED WITHOUT AUTHORIZATION
== END 2024-08-20 18:26 | disposition home or self-care (01) ==
LOC: ED 14:57
PROVIDERS: Emergency Medicine
DX: R00.2 Palpitations (principal); E86.0 Dehydration; E03.9 Hypothyroidism, unspecified; I50.9 Heart failure, unspecified; I48.91 Unspecified atrial fibrillation; Z95.2 Presence of prosthetic heart valve; Z86.73 Personal history of transient ischemic attack (TIA), and cerebral infarction without residual deficits; Z88.1 Allergy status to other antibiotic agents; Z88.8 Allergy status to other drugs, medicaments and biological substances; Z79.01 Long term (current) use of anticoagulants; Z79.890 Hormone replacement therapy; Z79.899 Other long term (current) drug therapy
CPT/HCPCS: 36415; 71045; 80053; 83735; 85025; 85610; 85730; 93005; 93010; 99285-25

== ENCOUNTER 2024-11-19 09:20 | Emergency (ER) | payer OTHER, MEDICARE ==
[~2024-11-19] VITALS: Ht 167.6 cm; Wt 79.4 kg
[2024-11-19 10:55] VITALS: BP 110/75
== END 2024-11-19 10:56 | disposition home or self-care (01) ==
LOC: ED 09:20
DX: S92.354A Nondisplaced fracture of fifth metatarsal bone, right foot, initial encounter for closed fracture (principal); H81.90 Unspecified disorder of vestibular function, unspecified ear; E03.9 Hypothyroidism, unspecified; I50.9 Heart failure, unspecified; I48.91 Unspecified atrial fibrillation; Z95.2 Presence of prosthetic heart valve; Z86.73 Personal history of transient ischemic attack (TIA), and cerebral infarction without residual deficits; Z88.8 Allergy status to other drugs, medicaments and biological substances; Z88.1 Allergy status to other antibiotic agents; Z79.01 Long term (current) use of anticoagulants; Z79.890 Hormone replacement therapy; Z79.899 Other long term (current) drug therapy; W01.0XXA Fall on same level from slipping, tripping and stumbling without subsequent striking against object, initial encounter
CPT/HCPCS: 73630; 99283

== ENCOUNTER 2024-12-21 06:30 | Day surgery (SDC) | payer MEDICARE, OTHER ==
--- NOTE | 2024-12-18 13:54 | NUR ---
PHONE CALL TO [phone] NO ANSWER LEFT MESSAGE.
[~2024-12-21] VITALS: Ht 167.6 cm; Wt 75.0 kg
[~2024-12-21 06:30] MED LIST changes: +LACTATED RINGER'S 1,000 ML IV SCH; +LASIX20 MG PO; +TRANSDERM-SCOP1 EACH TD; +[UNRECOGNIZED DRUG - OTHER]
[2024-12-21] MEDS ORDERED: LIDOCAINE HCL 1% 5 ML SDV INJ ONE (07:00)
[2024-12-21] MEDS ORDERED: CEFAZOLIN SODIUM 2 GM/20 ML SYR IV SCH (07:00)
[2024-12-21] MEDS ORDERED: IBLOOD GLUCOSE TEST STRIP 1 EA TEST VI PRN (07:00)
[2024-12-21 07:02] VITALS: BP 131/66
[2024-12-21] MEDS ORDERED: SODIUM CHLORIDE 0.9% 20 ML IV ONE (07:44)
[2024-12-21] MEDS ORDERED: LIDOCAINE HCL 2% 5 ML SDV ONE ×2 (07:44→08:25)
[2024-12-21] MEDS ORDERED: dexmedeTOMIDine HCl 200 MCG/2 ML VIAL ONE (07:44)
[2024-12-21] MEDS ORDERED: propofoL 200 MG/20 ML VIAL ONE ×2 (07:44→08:24)
[2024-12-21] MEDS ORDERED: Ropivacaine HCl 0.5% 30 ML VIAL ONE (07:44)
[2024-12-21] MEDS ORDERED: HYDROCODONE/ACETA 5/325 TAB PO PRN (08:15)
[2024-12-21] MEDS ORDERED: KETOROLAC TROMETHAMINE 15 MG/ML VIAL IV PRN (08:15)
[2024-12-21] MEDS ORDERED: DEXAMETHASONE SOD PHOS 4 MG/ML VIAL ONE (08:24)
[2024-12-21] MEDS ORDERED: ondansetron HCL 4 MG/2 ML VIAL ONE (08:24)
[2024-12-21] MEDS ORDERED: fentaNYL citrate 100 MCG/2 ML VIAL ONE (08:25)
[2024-12-21] MEDS ORDERED: ePHEDrine sulfate 50 MG/ML AMP ONE (08:46)
[2024-12-21] MEDS ORDERED: HYDROCODON-ACE1 EA10 PO (09:01)
[2024-12-21 09:32] VITALS: BP 125/69
--- NOTE | 2024-12-21 09:42 | NUR ---
12/21/24 0942 Chapis Jones 0903-PT ARRIVES TO PACU VIA STRETCHER, PT A+O X3. PT DENIES PAIN OR NAUSEA, VSS ON RA, RR EVEN AND UNLABORED. RT FOOT ELEVATED ON PILLOW AND ICE PACK APPLIED. 919-PT SITTING UP IN BED SIPPING ON COFFEE, DENEIS PAIN OR NAUSEA, VSS ON RA. 32-PT TAKEN BACK TO DAY SURGERY VIA STRETCHER, BEDSIDE REPORT GIVEN TO RN, ALL QUESTIONS ANSWERED. PT TALKING W/ STAFF, DENIES PAIN OR NAUSEA. VSS ON RA.
--- NOTE | 2024-12-21 09:45 | NUR ---
0932-PT ARRIVED BACK TO DS AAOX3, ON RA, AND DRINKING COFFEE. REPORT RECEIVED FROM MANAGER VOICE. SURGICAL SITE VISUALIZED WITH MANAGER VOICE. DRSG APPEARS CDI AND WALKING BOOT IN PLACE TO RLE. RLE ELEVATED AT APPROX HEART LEVEL. ICE PACK IN PLACE TO SURGICAL SITE. PT REPORTS NUMNESS SENDATION TO R FOOT. PT ABLE TO WIGGLE TOES SLIGHTLY. CMS INTACT. VS TAKEN. IV SITE ASSESSED, PATENT, AND INFUSING LR PER ORDERS. PT ANSWERING QUESTIONS APPROPRIATELY AND APPEARS IN JOVIAL MOOD AND CRACKING JOKES WITH STAFF. PT DENIES PAIN OR NAUSEA WHEN ASKED. PT PROVIDED WATER, COFFEE REFILL, JELLO, AND CRACKERS. BED IN LOW POSITION. WHEELS LOCKED. BILAT RAILS IN PLACE FOR SAFETY. CALL LIGHT WITHIN PT REACH. ALL QUESTIONS ANSWERED. 0945-SATS NOTED TO DECREASE TO 85% ON RA. PT COACHED ON DEEP BREATHING AND COUGHING. PT ALSO GIVEN INSPIROMETER WHICH SHE REPORTS SHE IS FAMILIAR WITH USING. PT DEMONSTRATES PROPER USE AND SATS QUICKLY RISE TO UPPER 90'S.
[2024-12-21 10:31] VITALS: BP 154/66
--- NOTE | 2024-12-21 10:40 | NUR ---
1000- CALL LIGHT ANSWERED. PT REPORTS URGE TO VOID. PT ASSISTED TO SITTING POSITION ON EOB. PT GIVEN A FEW MINUTES TO ACCLIMATE TO POSITION CHANGE D/T PT SELF REPORTING ISSUES WITH ORTHOSTATIC HYPOTENSION. WHILE WAITING TO TRANSFER, PT EDUCATED ON TTWB TO RLE AND USE OF WALKER FOR STAND AND PIVOT TRANSFERS WITH REGARDS TO TTWB ON THE RLE. PT VERBALIZED UNDERSTANDING OF INSTRUCTIONS GIVEN. PT ALSO EDUCATED ON NEED TO USE WC AT HOME FOR MOBILITY, SHE IS NOT ABLE TO WALK WITH TTWB RESTICTIONS TO RLE. ALSO REMINDED PT OF CONT TO ALSO USE WALKER FOR TRANSFERS TO AND FROM WC. PT AGAIN VERBALIZED UNDERSTANDING. IV SL'D PT CONT TO TAKE PO FLUIDS WELL W/O ISSUES AND DENIES N/V. 1010-PT ASSISTED TO STANDING POSITION WITH USE OF FWW AND RN ASSIST TO BSC FOR TOILETING. PT APPPEARED TO STRUGGLE SOME WITH MAINTAINING TTWB TO RLE. PT REMINDED AND CORRECTED THIS QUICKLY. PT ABLE TO VOID APPROX 400 ML OF PALE, CLR, YELLOW URINE. PT ASSISTED WITH DICKSON-CARE AND TRANSFER FROM BSC BACK TO EOB. PT WITH IMPROVED DEMONSTRATION OF TTWB TO RLE. PT CONT TO DENY PAIN OR NAUSEA WHEN ASKED AND HAS EATEN AND TAKEN FLUIDS WELL PO. PT CLOSE TO MEETING DISCHARGE CRITERIA. PT ASSISTED WITH DRESSING AND THE ASSISTED WITH REPOSITION BACK IN BED. RLE ELEVATED. SURGICAL SITE VISUALIZED POST AMBULATION AND REMAINS CDI. CMS ALSO NOTED TO BE UNREMARKABLE. PT REPORTS RLE TO STILL BE NUMB BUT IS ABLE TO MOVE IT AROUND AND WIGGLE TOES W/O ISSUES NOTED. ICE PACK REPLACED TO SURGICAL SITE. 1032-VS TAKEN. IV SITE ASSESSED. PT CONT TO DENY PAIN OR NAUSEA WHEN ASKED. PT NOTED TO APPEAR IN GOOD SPIRITS. PT REPORTS SHE IS GOING TO [employer] [facility] FROM [facility] ON HER WAY HOME. PT SEEN MAKING ARRANGEMENTS FOR THIS ON HER CELL PHONE. PT NOTED TO BE REAPPLYING LIPSTICK AND OTHER COSMETICS SHE KEEPS IN HER PURSE WELL. BED IN LOW POSITION. WHEELS LOCKED. CALL LIGHT WITHIN REACH. BILAT RAILS IN PLACE FOR SAFETY. PT REMAINS AAOX3 AND ABLE TO MAKE HER NEEDS KNOWN. ALL QUESTIONS ANSWERED.
[2024-12-21 11:15] VITALS: BP 145/78
--- NOTE | 2024-12-21 11:30 | NUR ---
1105-CALL LIGHT ANSWERED. PT REPORTS [facility] INFORMED HER THEY ARE MISSING INFORMATION FROM HER RX AND ARE UNABLE TO FILL AT THIS TIME. PT INFORMED THIS RN WOULD CARE AND HAVE THIS TAKEN CARE OF. CALL PLACED TO [facility] AND GRILL PREP COOK WAS SPOKEN WITH. THEY REPORT THEY NOW REQUIRE AN ICD 10 CODE WITH ALL RX'S, NOT JUST THE DX. VERIFIED WITH GRILL PREP COOK THAT THIS RN COULD GIVE TO HER VERBALLY OVER THE PHONE, WHICH SHE INFORMED THIS RN IT WOULD BE OKAY TO DO. ICD 10 CODE G89.18 GIVEN, WHICH IS FOR POST-OPERATIVE PAIN, THE INDICATION FOR USE OF THE [facility]CO RX. 1114-CALL PLACED TO PENDING SALE TO [facility] TO LET THEM KNOW PT WOULD BE READY FOR DISCHARGE IN APPROX 20 MINS AND THEY REPORT THEY WILL HEAD THIS WAY. 1115-INTO PTS ROOM FOR ROUTINE REASSESSMENT AND DISCHARGE EDUCATION. VS TAKEN. IV SITE ASSESSED. SURGICAL SITE VISUALIZED, NO ACUTE CHANGES NOTED FROM PREVIOUS ASSESSMENT. PT COMPLIANT WITH USE OF WALKING BOOT IN PLACE AND ELEVATION. PT ALSO COMPLIANT WITH ICE TO SURGICAL SITE. CMS APPEARS TO REMAIN INTACT. PT CONT TO REPORT NO PAIN OR NAUSEA. PT EATING AND DRINKING WELL. PT REMAINS AAO AND ABLE TO MAKE HER NEEDS KNOWN. DISCHARGE INSTRUCTION GONE OVER WITH PT. EMPHASIS PLACED ON LEAVING DRSG IN PLACE UNTIL F/U APPT AND NOT ALLOWING IT TO GET WET. PT GIVEN POST OP APPT AND DR. JARAMILLO AFTER HOURS PHONE NUMBER. PT AGAIN EDUCATED ON TTWB TO RLE AND USE OF TRANSFERS WITH FWW ALONG WITH USE OF WC FOR ALL MOBILITY, NO WALKING ON RLE. PT VERBALIZED UNDERSTANDING. ALL QUESTIONS ANSWERED. PT PROVIDED EDUCATIONAL HANDOUTS THAT INCLUDE INFO ABOUT NORCO, WHICH DR. JARAMILLO ORDERED FOR PT FOR POST-OP PAIN. PT HAD REQUESTED INFO ON NORCO. 1125-IV REMOVED. TIP APPEARS INTACT. PRESSURE DRSG APPLIED WITH GAUZE AND COBAN. PT REPORTS URGE TO VOID AGAINA ND ASSISTED WITH USE OF BSC AGAIN WITH FWW AND RN ASSIST. PT THEN ASSITED WITH APPLYING SHOE TO LLE AND COAT. PT ASSISTED WITH TRASNFER FROM BED TO WC. ICE PACK REFILLED. ALL PERSONAL BELONGINGS GATHERED AND PLACED IN PTS BAG. PT GIVEN WATER CUP TO TAKE WITH HER WELL HER INSPIROMETER.
--- NOTE | 2024-12-21 11:35 | NUR ---
PT DISCHARGED FROM TO PASSENGER SIDE OF [facility] STAFF VEHICLE. PT LEFT WITH ALL PERSONAL BELONINGS.
--- NOTE | 2024-12-21 12:24 | OR ---
[facility] [address] [place], [place] [address] Signed DATE OF OPERATION: 12/21/2024 SURGEON: Evelina Olson MD PREOPERATIVE DIAGNOSIS: Noel fracture right 5th metatarsal. POSTOPERATIVE DIAGNOSIS: Noel fracture right 5th metatarsal. PROCEDURE PERFORMED: Open reduction and internal fixation right 5th metatarsal. HAY CHOPPER: Andree Luna PA-C. Andree was present and critical for all portions of procedure. ANESTHESIA: General. BLOOD LOSS: Minimal. TOURNIQUET TIME: 15 minutes. IMPLANTS: 4.0 x 38 Synthes headless screw. BRIEF HISTORY: Jose is an 84-year-old female, who suffered a fall fracturing her 5th metatarsal. She did have a prior 5th metatarsal fracture, this fixed with percutaneous screws. This had healed uneventfully. Risks, benefits, and alternatives of surgery were discussed with her after the fracture continued over three week period that show instability and displacement from its original x-rays. She understood and wished to proceed. DESCRIPTION OF PROCEDURE: Once consent was obtained, she was taken to the operating room. After adequate anesthesia, she was placed on the operating room table and placed on a hip bump. Well-padded proximal thigh tourniquet was placed. The leg was then prepped and draped Electronically Signed By: EVELINA OLSON MD 12/21/24 1224 PATIENT NAME: JOSE HENSLEY OPERATIVE REPORT DATE OF : 42 REPORT #: [id number] PHYSICIAN: EVELINA OLSON MD PCP: SOPHIE SULLIVAN REPORT IS CONFIDENTIAL AND NOT TO BE RELEASED WITHOUT AUTHORIZATION [facility] [address] [facility] [place], [place] [address] Signed in a standard sterile fashion. The head of the metatarsal was identified under image intensifier and 1 cm incision was made. This was carried through skin subcutaneous tissue. The guide pin for the 35 x 4.0 headless screw was advanced from the tip of the metatarsal proximally down the center of the metacarpal shaft until it engaged the previously placed screws. This was then overdrilled and a 38 x 4.0 screw was placed with good purchase. Once this was completed, the guide pin was removed. The wound was copiously irrigated and closed with 3-0 Monocryl and Steri-Strips, was dressed with Allevyn and Bhavin wrap and she was placed back into a fracture boot. She tolerated the procedure well. All sponge, needle, and instrument counts were correct. Evelina Olson MD BA/REJIL /[id number] Copies: ~ Electronically Signed By: EVELINA OLSON MD 12/21/24 1224 PATIENT NAME: JOSE HENSLEY OPERATIVE REPORT DATE OF : 42 REPORT #: [id number] PHYSICIAN: EVELINA OLSON MD PCP: SOPHIE SULLIVAN REPORT IS CONFIDENTIAL AND NOT TO BE RELEASED WITHOUT AUTHORIZATION
[2024-12-21] MEDS ORDERED: SEVOFLURANE 250 ML BTL INH ONE (14:09)
== END 2024-12-21 11:35 | disposition home or self-care (01) ==
LOC: DS 06:30
PROVIDERS: ATTEND Specialist
PROC: 0QSN04Z Reposition Right Metatarsal with Internal Fixation Device, Open Approach (ICD-10-PCS; principal; 2024-12-21 09:00)
DX: S92.351A Displaced fracture of fifth metatarsal bone, right foot, initial encounter for closed fracture (principal); W19.XXXA Unspecified fall, initial encounter; E03.9 Hypothyroidism, unspecified; I69.354 Hemiplegia and hemiparesis following cerebral infarction affecting left non-dominant side; Z79.890 Hormone replacement therapy; Z79.01 Long term (current) use of anticoagulants; Z79.899 Other long term (current) drug therapy; Z88.0 Allergy status to penicillin; Z88.8 Allergy status to other drugs, medicaments and biological substances
CPT/HCPCS: 01480; 73620; C1713; C1769; J0690; J1100; J2003; J2405; J2704; J2795; J3010; J7121

== ENCOUNTER 2025-06-08 14:50 | Inpatient (IN) | payer MEDICARE, OTHER ==
[~2025-06-08] VITALS: Ht 167.6 cm; Wt 78.5 kg
[~2025-06-08 14:50] MED LIST changes: +AMIODARONE HCL200 MG PO; -LACTATED RINGER'S 1,000 ML IV SCH
[2025-06-08] MEDS ORDERED: FLUTICASONE PRO16 GM NAS (15:01)
[2025-06-08] MEDS ORDERED: FUROSEMIDE20 MG PO (15:01)
[2025-06-08 15:16] LABS: BASOPHILS 0.8 % (0.1-1.2); EOSINOPHILS 3.9 % (0.7-5.8); LYMPHOCYTES 27.0 % (19.3-51.7); MCH 30.4 PG (25.6-32.2); MCHC 33.1 g/dL (32.2-35.5); MCV 91.6 fL (79.4-94.8); MONOCYTES 9.8 % (4.7-12.5); NEUTROPHILS 58.3 % (34.0-71.1); RBC 3.69 M/uL (3.93-5.22)
[2025-06-08 15:27] LABS: INR 2.21 (0.80-1.30); PROTIME 23.8 Sec (11.2-14.2)
[2025-06-08 15:32] LABS: ALT (SGPT) 26.0 U/L (14-59); AST (SGOT) 16.0 U/L (15-37); GLOMERULAR FILTRATION RATE,EST 36.0 mL/min (>60); PROTEIN, TOTAL 6.8 g/dL (6.4-8.2); UREA NITROGEN 30.0 mg/dL (7-18)
[2025-06-08 19:01] VITALS: BP 118/77
--- NOTE | 2025-06-08 19:04 | NUR ---
PT ARRIVES TO MED-SURG VIA BED, ESCORTED BY SMOOTH MORA, VERBAL REPORT RECEIVED. PT AWAKE AND ALERT, VSS. PT TO BED VIA 1PA ASSIST. PT ORIENTED TO ROOM, BED AND CALL LIGHT.
--- NOTE | 2025-06-08 19:14 | NUR ---
RECEIVED REPORT. PT ALERT IN BED, ASSISTED TO REMOVE PANTS AND PLACED WITH PT BELONGINGS. AIRCRAFT CLEANER IN ROOM TO COMPLETE ADMISSION SCREENING. PROVIDED WATER.CALL LIGHT IN REACH
[2025-06-08] MEDS ORDERED: MIDODRINE HCL 5 MG TAB PO PRN (19:30)
[2025-06-08 20:54] VITALS: BP 126/66
[2025-06-08] MEDS ORDERED: POLYETHYLENE GLYCOL 3350 1 PACKET PO SCH (21:04)
[2025-06-08] MEDS ORDERED: SENNOSIDES/DOCUSATE 1 EA TAB PO SCH (21:04)
--- NOTE | 2025-06-08 21:05 | NUR ---
ASSISTED PT TO BEDSIDE COMMODE 1PA. PT TOO DIZZY TO WALK TO BATHROOM. VITALS, ADMISSION ASSESSMENT. NO OOTHER NEEDS, CALL LIGHT IN REACH
[2025-06-08] MEDS ORDERED: MAGNESIUM CITRATE 300 ML BTL PO ONE (21:15)
--- NOTE | 2025-06-08 22:07 | NUR ---
ASSISTED PT TO BATHROOM 1PA FWW. REPORTS FEELING DIZZY, THOUGH STEADY ON FEET.
--- NOTE | 2025-06-08 23:22 | NUR ---
GIVEN MIRALAX, HELD STEFANIE D/T LARGE BM. NO OTHER NEES, CALL LIGHT IN REACH
[2025-06-09] VITALS (11 sets, daily range): BP systolic 100–137; BP diastolic 50–76
--- NOTE | 2025-06-09 00:10 | NUR ---
PT RESTING IN BED WITH EYES CLOSED, RISE AND FALL OF CHEST OBSERVERED. CALL LIGHT IN REACH
--- NOTE | 2025-06-09 01:18 | NUR ---
Pt's large BM X1 was hard and formed at first and then soft and pasy as agreed by Pt.
--- NOTE | 2025-06-09 01:18 | NUR ---
PT ALERT IN BED, VITALS TAKEN BY INDUSTRIAL WELDER IN ROOM. NO NEEDS PRESENTLY, CALL LIGHT IN REACH
--- NOTE | 2025-06-09 03:25 | NUR ---
Assisted Pt 1PA FWW from bed to bedside commode and back. No other needs expressed by Pt. Call light left in reach. Pt's bed adjusted to have foot of bed higher than head of bed. No other needs expressed by Pt. Bed lowered.
--- NOTE | 2025-06-09 03:54 | NUR ---
PT RESTING IN BED WITH EYES CLOSED, SAYS "I'M OKAY" WHEN CRACKED DOOR. CALL LIGHT IN REACH
--- NOTE | 2025-06-09 05:40 | NUR ---
PT ASSISTED TO BEDSIDE COMMODE, THEN RECLINER, BY OTHER KIND RN. VITALS, AM ASSESSMENT PERFORMED BY THIS RN. PROVIDED COFFEE, WATER, AND MENU. NO OTHER NEEDS PRESENTLY. CALL LIGHT INR EACH
--- NOTE | 2025-06-09 07:30 | NUR ---
RECIEVED SHIFT REPORT. PT IS AWAKE IN RECLINER, REQUESTING TO USE THE BATHROOM, SAW SHARPENER IN ROOM TO ASSIST PT.
[2025-06-09 08:19] LABS: BASOPHILS 0.7 % (0.1-1.2); EOSINOPHILS 3.8 % (0.7-5.8); LYMPHOCYTES 25.0 % (19.3-51.7); MCH 30.0 PG (25.6-32.2); MCHC 32.8 g/dL (32.2-35.5); MCV 91.4 fL (79.4-94.8); MONOCYTES 8.6 % (4.7-12.5); NEUTROPHILS 61.7 % (34.0-71.1); RBC 3.70 M/uL (3.93-5.22)
[2025-06-09] MEDS ORDERED: ACETAMINOPHEN 325 MG TAB PO PRN (08:30)
[2025-06-09 08:41] LABS: GLOMERULAR FILTRATION RATE,EST 50.0 mL/min (>60); UREA NITROGEN 23.0 mg/dL (7-18)
[2025-06-09 08:42] LABS: TSH, 3RD GENERATION 0.077 uIU/mL (0.358-3.740)
[2025-06-09] MEDS ORDERED: LIOTHYRONINE SODIUM 5 MCG TAB PO SCH (09:00)
[2025-06-09] MEDS ORDERED: PANTOPRAZOLE SODIUM 40 MG TABEC PO SCH (09:00)
[2025-06-09] MEDS ORDERED: MIDODRINE HCL 5 MG TAB PO SCH (09:00)
--- NOTE | 2025-06-09 10:02 | NUR ---
pt sitting in chair, up for breakfast. PT HAS FRESH WATER NEXT TO HER, THE CALL LIGHT WITHIN REACH, A VISIT FROM THE PHARMACIST, AND HER NURSE CAME IN TO GIVE MEDICATIONS. PT REPORTS NEEDING NOTHING ELSE AT THIS TIME.
[2025-06-09] MEDS ORDERED: LEVOTHYROXINE SODIUM 88 MCG TAB PO SCH (10:03)
--- NOTE | 2025-06-09 11:01 | NUR ---
medications reconciled with patient
[2025-06-09] MEDS ORDERED: PHARMACY RENAL DOSE ADJUSTMENT 1 DOSE MISC PO SCH (12:00)
--- NOTE | 2025-06-09 12:22 | NUR ---
PT AWAKE IN RECLINER, DENIES NEEDS. CALL LIGHT IN REACH
--- NOTE | 2025-06-09 13:15 | NUR ---
REPORT REC'D FROM THONY RN. PT SITTING UP IN CHAIR, REQUESTING ASSIST TO BRP. PT TO BRP WITH FWW SBA, VOID CLEAR YELLOW URINE. PT AMBULATED IN ROOM, RETURNED TO CHAIR. CALL RAMIREZ IN REACH, WHEELS LOCKED, CHAIR RECLINED. IV SITE TO AC FLUSHED. PT DENIES ADDITIONAL NEEDS AT THIS TIME. PT INSTRUCTED TO CALL FOR ASSISTANCE PRN.
--- NOTE | 2025-06-09 15:07 | NUR ---
PT SITTING IN CHAIR, WATCHING TV, AND ON THE PHONE. PT REQUESTED ORANGE JELLO, SO I GOT IT. SHE HAS WATER.THE CALL LIGHT IS WITHIN REACH, THE PT REQUESTED NOTHING MORE AT THIS TIME.
--- NOTE | 2025-06-09 15:15 | NUR ---
PT MOVED FROM BED TO CHAIR. PARTIAL LINEN CHANGE WAS COMPLETED, PT SAID I DID NOT HAVE TO CHANGE THE WHOLE THING BECAUSE SHE WAS STAYING IN THE CHAIR BECAUSE IT WAS MORE COMFORTABLE THAN THE BED. PT REQUESTED ORANGE JELLO. PT HAS WATER NEXT TO HER AND THE CALL LIGHT. PT REQUESTED NOTHING MORE AT THIS TIME. ROOM CLEANED GARBAGE TAKEN OUT.
[2025-06-09] MEDS ORDERED: WARFARIN PER PHARMACY PROTOCOL PO SCH (16:00)
[2025-06-09] MEDS ORDERED: WARFARIN SOD 2.5 MG TAB PO SCH (16:00)
--- NOTE | 2025-06-09 16:13 | NUR ---
PT REMAINS SITTING UP IN CHAIR AT THIS TIME. VISITOR AT BEDSIDE. PT VERBALIZES NO C/O. CALL RAMIREZ IN REACH, CHAIR LOCKED AND RECLINED.
--- NOTE | 2025-06-09 17:39 | NUR ---
PT SITTING UP IN CHAIR EATING EVENING MEAL. PT DENIES NEEDS AT THIS TIME. CALL RAMIREZ IN REACH, CHAIR RECLINED AND LOCKED.
--- NOTE | 2025-06-09 18:16 | NUR ---
PT SITTING UP IN CHAIR WITH FEET UP, ALERT AND AWAKE. i HELPED HER AMBULATE TO THE BATHROOM. PT URINATED. GOT PT FRESH WATER AND CLEANED HER UP AFTER DINNER. CALL LIGHT WITHIN REACH. PT SITTING IN CHAIR WITH FEET UP AND BLANKETS ON HER LAP. PT WATCHING TV.
--- NOTE | 2025-06-09 18:20 | NUR ---
PT AMBULATED TO THE BATHROOM, URINATED, WASHED HANDS, AND AMBULATED BACK TO HER CHAIR. PT WAS WINDED AND FELT DIZZY WHILE AMBULATING. PT RETURNED TO BASELINE WITHIN A COUPLE MINUTES FOLLOWING AMBULATION. PT BACK IN CHAIR, FEET UP, BLANKETS ON FOR WARMTH, AND FEET UP. CALL LIGHT WITHIN REACH.
--- NOTE | 2025-06-09 19:08 | NUR ---
PT CARE FOR T/O SHIFT WITHOUT C/O. PT HAS REMAINED UP IN CHAIR. PT CONTINUES TO BE IN AFIB TELE # 9. CALL RAMIREZ IN REACH, CHAIR LOCKED, REPORT GIVEN TO SMOOTH ACUNA.
--- NOTE | 2025-06-09 19:49 | NUR ---
RECEIVED REPORT. PT ALERT IN RECLINER. NO NEEDS FOR NOW, CALL [place]E [place]
--- NOTE | 2025-06-09 21:15 | NUR ---
VITALS, ASSESSMENT, EVENING MEDS. PT DECLINES SENNAKOT FOR EVENING BUT ACCEPTS MIRALAX. PT REPORTS DIZZINESS SLOWLY IMPROVING THOUGH NOT RESOLVED. PT WOULD LIKE TO SLEEP IN RECLINER TONIGHT. CALL LIGHT IN REACH
--- NOTE | 2025-06-09 21:55 | NUR ---
CALL LIGHT ANSWERED. 1PA/SBA. PATIENT UP TO THE BATHROOM TO VOID 3OOML YELLOW URINE. PATIENT DID PM AND ORAL CARE. PATIENT IS BACK TO CHAIR. PATIENT PREFERS BEING UP IN THE CHAIR STATING MORE COMFORTABLE. PATIENT IS QUITE WOBBLY ON HER GAIT. PATIENT STATED HER LEGS ARE NOT STABLE AND THAT SHE IS TIRED. CALL LIGHT AND SIDE TABLE WITHIN REACH.
--- NOTE | 2025-06-10 00:34 | NUR ---
PT RESTING WITH EYES CLOSED IN RECLINER, RISE AND FAL OF CHEST OBSERVED. CALL LIGHT IN REACH
[2025-06-10 01:37] VITALS: BP 115/69
--- NOTE | 2025-06-10 01:50 | NUR ---
PATIENT CALLED. SBA PATIENT UP TO THE RESTROOM TO VOID 300ML YELLOW URINE. PAITENT WASHED HER HANDS. PAITENT IS BACK IN CHAIR. NO FURTHER NEEDS AT THIS TIME.
--- NOTE | 2025-06-10 03:21 | NUR ---
PT IN RECLINER WITH EYES CLOSED, RISE AND FALL OF CHEST OBSERVED. CALL LIGHT IN REACH
[2025-06-10 05:18] VITALS: BP 95/52
[2025-06-10 05:19] VITALS: BP 95/52
--- NOTE | 2025-06-10 05:22 | NUR ---
VITALS, AM ASSESSMENT. NO NEEDS PRESENTLY, CALL LIGHT IN REACH
[2025-06-10 05:27] LABS: BASOPHILS 0.8 % (0.1-1.2); EOSINOPHILS 4.0 % (0.7-5.8); LYMPHOCYTES 29.6 % (19.3-51.7); MCH 30.0 PG (25.6-32.2); MCHC 32.8 g/dL (32.2-35.5); MCV 91.4 fL (79.4-94.8); MONOCYTES 9.9 % (4.7-12.5); NEUTROPHILS 55.5 % (34.0-71.1); RBC 3.70 M/uL (3.93-5.22)
[2025-06-10 05:37] LABS: GLOMERULAR FILTRATION RATE,EST 47.0 mL/min (>60); UREA NITROGEN 25.0 mg/dL (7-18)
[2025-06-10 05:43] LABS: INR 2.56 (0.80-1.30); PROTIME 26.7 Sec (11.2-14.2)
[2025-06-10] MEDS ORDERED: LEVOTHYROXINE SODIUM 88 MCG TAB PO SCH (06:00)
--- NOTE | 2025-06-10 06:20 | NUR ---
ASSISTED TO BATHROOM 1PA WITH FWW. PT REPORTS FEELING SHAKY THOUGH MILDLY IMPROVED. NO TOHER NEEDS CALL LIGHT IN REACH
--- NOTE | 2025-06-10 07:02 | NUR ---
AM MEDS. PT ALERT IN CHAIR, ORDERED BREAKFAST. PROVIDED COFFEE AND WATER, NO OTHER NEEDS. CALL LIGHT IN REACH
--- NOTE | 2025-06-10 07:24 | NUR ---
REPORT FROM ALEJANDRO REBOLLAR.
--- NOTE | 2025-06-10 07:28 | NUR ---
UR CLINICAL REVIEW: 2 MN FOR VERSALUS- PER [facility] MEET INPT FOR GAIT ATAXIA SECONDARY TO AMIODARONE WITH NEED FOR MONITORING, PT/OT MEDICARE INPT 06/09/25 @ 0823 ORDER MATCHES REG NO AUTH REQUIRED PER MEDICARE GUIDELINES AWAITING FURTHER PT/OT EVAL
[2025-06-10 07:52] VITALS: BP 95/52
--- NOTE | 2025-06-10 07:54 | NUR ---
MORNING ASSESSMENT COMPLETE. PATIENT IS UP TO CHAIR AND AWAITING BREAKFAST. PATIENT DENIES PAIN OR NAUSEA. LEFT ARM IV FLUSHES. MO OTHER NEEDS AT THIS TIME.
--- NOTE | 2025-06-10 08:24 | NUR ---
PATIENT IS SITTING UP IN THE CHAIR EATING BREAKFAST. PATIENTS CALL LIGHT IS WITHIN REACH AND HAS NO NEEDS AT THIS TIME.
--- NOTE | 2025-06-10 09:10 | NUR ---
Spoke with Zoey and she does not want to go to a SNF. She wants to go home to [facility]. She uses a two walkers;one in her room and one when she goes to eat that is parked by the cafeteria. She also has a scooter she uses in the building and between the room and the cafeteria. She denies need for other DME. She denies any financial or safety issues. She states Wendy at [facility] will pick her up or drive her if needed. Pt [facility] for [facility]/aid. Home today.
[2025-06-10 09:15] VITALS: BP 125/50
--- NOTE | 2025-06-10 09:40 | NUR ---
PATIENT GIVEN MORNING MEDICATIONS. PATIENT IS GETTING IN THE SHOWER. DISCHARGE ORDERS ARE AVAILABLE.
--- NOTE | 2025-06-10 10:04 | NUR ---
PATIENT WAS ASSISTED IN THE SHOWER. PATIENT WAS PROVIDED WITH A WARM BLANKET. PATIENT IS NOW SITTING IN HER CHAIR WITH CALL LIGHT IN REACH AND NO FURTHER NEEDS AT THIS TIME.
--- NOTE | 2025-06-10 10:45 | NUR ---
PATIENT GIVEN DISCHARGE PAPERS, VITALS ARE STABLE.
--- NOTE | 2025-06-10 11:00 | NUR ---
HH referral sent to [facility] as requested by Zoey. She has used them in the past. She will call and cancel her OP OT therapy. Pt feels she is not strong enough to go to OP until some of symptoms from her amioderone have resolved. Home today.
== END 2025-06-10 10:55 | disposition home or self-care (01) | DRG 92 ==
LOC: ED 14:50 → MS 18:38
PROVIDERS: Emergency Medicine; ADMIT Student in an Organized Health Care Education/Training Program; ATTEND Student in an Organized Health Care Education/Training Program
DX: R26.0 Ataxic gait (principal); I69.854 Hemiplegia and hemiparesis following other cerebrovascular disease affecting left non-dominant side; N17.9 Acute kidney failure, unspecified; I48.91 Unspecified atrial fibrillation; E03.9 Hypothyroidism, unspecified; Z66 Do not resuscitate; Z96.651 Presence of right artificial knee joint; K21.9 Gastro-esophageal reflux disease without esophagitis; R26.89 Other abnormalities of gait and mobility; N18.9 Chronic kidney disease, unspecified; T46.2X5A Adverse effect of other antidysrhythmic drugs, initial encounter; I95.9 Hypotension, unspecified; Z85.42 Personal history of malignant neoplasm of other parts of uterus; Z95.2 Presence of prosthetic heart valve; Z79.01 Long term (current) use of anticoagulants; Z90.710 Acquired absence of both cervix and uterus; Z98.890 Other specified postprocedural states; Z87.81 Personal history of (healed) traumatic fracture; Z90.722 Acquired absence of ovaries, bilateral; Z88.1 Allergy status to other antibiotic agents; Z88.8 Allergy status to other drugs, medicaments and biological substances; Z79.899 Other long term (current) drug therapy; Z79.890 Hormone replacement therapy
CPT/HCPCS: 36415; 70450; 80048; 80053; 82607; 83735; 84439; 84443; 85025; 85610; 97162; 97166; A9270

== ENCOUNTER 2025-09-04 13:29 | Emergency (ER) | payer MEDICARE, OTHER ==
[~2025-09-04] VITALS: Ht 167.6 cm; Wt 78.5 kg
--- OUTSIDE RECORDS SUMMARY | ~2025-09-04 | XMS | Continuity of Care Document ---
Demographics + + + | Address | [address] | | | [place] [address] | + + + | Preferred Language | Unknown | + + + | Marital Status | | + + + | Yazdanism Affiliation | Unknown | + + + | Race | White | + + + | Ethnic Group | Not or | + + + Author + + + | Author | [facility] | + + + | Organization | [facility] | + + + | Address | [address] | | | [place] [address] | + + + | Phone | | + + + Care Team Providers + + + + | Care Cloth Washer Name | Role | Phone | + + + + Unavailable | Unavailable | + + + + Unavailable | Unavailable | + + + + Allergies and Intolerances + + + + + + | date | description | facility | reaction | severity | + + + + + + | 2025-06-08 | Triamcinolone | [facility] | (no reaction) | (no severity) | | 00:00 | | [facility] | | | + + + + + + | 2025-06-08 | Olopatadine | [facility] - | (no reaction) | Mild | | 00:00 | | [facility] | | | + + + + + + | 2025-06-08 | Cortisone | [facility] - | (no reaction) | Mild | | 00:00 | | [facility] | | | + + + + + + | 2025-06-08 | Triamcinolone | [facility] - | (no reaction) | (no severity) | | 00:00 | | [facility] | | | + + + + + + | 2025-06-08 | Olopatadine | [facility] - | (no reaction) | Mild | | 00:00 | | [facility] | | | + + + + + + | 2025-06-08 | Azithromycin | [facility] - | Dizziness | Mild | | 00:00 | | [facility] | | | + + + + + + | 2025-06-08 | Triamcinolone | [facility] - | (no reaction) | (no severity) | | 00:00 | | [facility] | | | + + + + + + | 2025-06-08 | Amoxicillin | [facility] - | (no reaction) | (no severity) | | 00:00 | | [facility] | | | + + + + + + | 2025-06-08 | Cortisone | [facility] - | (no reaction) | Mild | | 00:00 | | [facility] | | | + + + + + + | 2025-06-08 | Azithromycin | [facility] - | Dizziness | Mild | | 00:00 | | [facility] | | | + + + + + + | 2025-06-08 | Amoxicillin | [facility] - | (no reaction) | (no severity) | | 00:00 | | [facility] | | | + + + + + + | 2025-06-08 | Amoxicillin | [facility] - | (no reaction) | (no severity) | | 00:00 | | [facility] | | | + + + + + + | 2025-06-08 | Olopatadine | [facility] - | (no reaction) | Mild | | 00:00 | | [facility] | | | + + + + + + | 2025-06-08 | Azithromycin | [facility] - | Dizziness | Mild | | 00:00 | | [facility] | | | + + + + + + | 2025-06-08 | Cortisone | [facility] - | (no reaction) | Mild | | 00:00 | | [facility] | | | + + + + + + | 2025-06-08 | UNK | [facility] - | Vomiting | Mild | | 00:00 | | [facility] | | [facility] | | | + + + + + + Encounters No information. Functional Status No information. Immunizations No information. Medications + + + + | date | description | facility | + + + + | (no date) | MECOBALAMIN | [facility] [place] | | | | [facility] | + + + + | (no date) | FLUTICASONE PROPIONATE 50 | [facility] | | | [facility] | [facility] | + + + + | (no date) | FUROSEMIDE | [facility] | | | | [facility] | + + + + | (no date) | CLOPIDOGREL BISULFATE | [facility] | | | | [facility] | + + + + | (no date) | FUROSEMIDE | [facility] [place] | | | | [facility] | + + + + | (no date) | OMEPRAZOLE MAGNESIUM | [facility] | | | | [facility] | + + + + | (no date) | ATORVASTATIN CALCIUM | [facility] | | | | [facility] | + + + + | (no date) | ATORVASTATIN CALCIUM | [facility] [place] | | | | [facility] | + + + + | (no date) | Estrogens, Conjugated | [facility] [place] | | | | [facility] | + + + + | (no date) | LORATADINE | [facility] [place] | | | | [facility] | + + + + | (no date) | ASPIRIN | [facility] | | | | [facility] | + + + + | (no date) | AMIODARONE HCL | [facility] | | | | [facility] | + + + + | (no date) | Diclofenac Sodium | [facility] [place] | | | | [facility] | + + + + | (no date) | CLOBETASOL PROPIONATE | [facility] | | | | [facility] | + + + + | (no date) | LIOTHYRONINE SODIUM | [facility] [place] | | | | [facility] | + + + + | (no date) | PRAVASTATIN SODIUM | [facility] [place] | | | | [facility] | + + + + | (no date) | LEVOTHYROXINE SODIUM | [facility] | | | | [facility] | + + + + | (no date) | MIDODRINE HCL | [facility] | | | | [facility] | + + + + | (no date) | MIDODRINE HCL | [facility] | | | | [facility] | + + + + Problems No information. Procedures No information. Results/Labs No information. Social History +--------+ + + | date | description | facility | +--------+ + + Vital Signs + + +---------+---------+ | date | measurement | value | units | + + +---------+---------+ | 2025-07-16 00:00 | BP_diastolic | 57 | mmHg | + + +---------+---------+ | 2025-07-16 00:00 | BP_systolic | 81 | mmHg | + + +---------+---------+ | 2025-07-16 00:00 | heart_rate | 78 | /min | + + +---------+---------+ | 2025-07-23 00:00 | BP_diastolic | 56 | mmHg | + + +---------+---------+ | 2025-07-23 00:00 | BP_systolic | 93 | mmHg | + + +---------+---------+ | 2025-07-23 00:00 | heart_rate | 74 | /min | + + +---------+---------+ | 2025-07-30 00:00 | BP_diastolic | 56 | mmHg | + + +---------+---------+ | 2025-07-30 00:00 | BP_systolic | 110 | mmHg | + + +---------+---------+ | 2025-07-30 00:00 | heart_rate | 67 | /min | + + +---------+---------+ | 2025-08-06 00:00 | BP_diastolic | 51 | mmHg | + + +---------+---------+ | 2025-08-06 00:00 | BP_systolic | 99 | mmHg | + + +---------+---------+ | 2025-08-06 00:00 | heart_rate | 78 | /min | + + +---------+---------+"
[~2025-09-04 13:29] MED LIST changes: +CLOPIDOGREL75 MG PO; +MIDODRINE HCL10 MG PO
[2025-09-04 13:54] LABS: BASOPHILS 1.0 % (0.1-1.2); EOSINOPHILS 4.3 % (0.7-5.8); LYMPHOCYTES 28.6 % (19.3-51.7); MCH 30.2 PG (25.6-32.2); MCHC 32.7 g/dL (32.2-35.5); MCV 92.2 fL (79.4-94.8); MONOCYTES 9.3 % (4.7-12.5); NEUTROPHILS 56.5 % (34.0-71.1); RBC 3.61 M/uL (3.93-5.22)
[2025-09-04] MEDS ORDERED: WARFARIN SODIUM2 MG PO (14:04)
[2025-09-04] MEDS ORDERED: LIPITOR40 MG PO (14:04)
[2025-09-04] MEDS ORDERED: WARFARIN SODIUM1 MG PO (14:05)
[2025-09-04 14:08] LABS: ALT (SGPT) 17.0 U/L (14-59); AST (SGOT) 9.0 U/L (15-37); GLOMERULAR FILTRATION RATE,EST 52.0 mL/min (>60); PROTEIN, TOTAL 6.7 g/dL (6.4-8.2); UREA NITROGEN 27.0 mg/dL (7-18)
[2025-09-04 14:43] LABS: BLOOD/HGB, URINE NEGATIVE (Negative); KETONE, URINE NEGATIVE (Negative); LEUK ESTERASE, URINE NEGATIVE (negative); NITRITE, URINE NEGATIVE (negative)
[2025-09-04 16:30] VITALS: BP 158/107
[2025-09-04] MEDS ORDERED: PLAVIX75 MG PO (18:20)
--- NOTE | 2025-09-05 06:06 | EKG ---
[facility] [address] [place], [place] [address] Signed Sinus rhythm with premature atrial complexes with aberrant conduction Otherwise normal ECG When compared with ECG of 13-DEC-2024 10:19, No significant change was found Confirmed by ODELL RAMIREZ MD ([id number]) on 09/05/2025 6:06:42 AM Electronically Signed By: ODELL RAMIREZ 09/05/25605 PATIENT NAME: HILARIO HENSLEYEBONIE NOLASCO Electrocardiogram DATE OF : 42 PHYSICIAN: ODELL RAMIREZ REPORT #: [id number] REPORT IS CONFIDENTIAL AND NOT TO BE RELEASED WITHOUT AUTHORIZATION
== END 2025-09-04 16:30 | disposition home or self-care (01) ==
LOC: ED 13:29
PROVIDERS: Emergency Medicine
DX: I95.9 Hypotension, unspecified (principal); I50.9 Heart failure, unspecified; I48.91 Unspecified atrial fibrillation; Z90.710 Acquired absence of both cervix and uterus; Z88.8 Allergy status to other drugs, medicaments and biological substances; Z88.1 Allergy status to other antibiotic agents; Z79.899 Other long term (current) drug therapy
CPT/HCPCS: 36415; 80053; 81003; 85025; 93005; 93010; 99285

== ENCOUNTER 2025-09-24 10:01 | Emergency (ER) | payer MEDICARE, OTHER ==
[~2025-09-24] VITALS: Ht 167.6 cm; Wt 78.5 kg
--- OUTSIDE RECORDS SUMMARY | ~2025-09-24 | XMS | Continuity of Care Document ---
Demographics + + + | Address | [address] | | | [place] [address] | + + + | Preferred Language | Unknown | + + + | Marital Status | | + + + | Yazidi Affiliation | Unknown | + + + | Race | White | + + + | Ethnic Group | Not or | + + + Author + + + | Author | [employer] | + + + | Organization | [employer] | + + + | Address | [address] | | | [place] [address] | + + + | Phone | | + + + Care Team Providers + + + + | Care Physically Impaired Teacher Name | Role | Phone | + + + + Unavailable | Unavailable | + + + + Unavailable | Unavailable | + + + + Allergies No information. Encounters No information. Functional Status No information. Immunizations No information. Medications + + + + | date | description | facility | + + + + | (no date) | MECOBALAMIN | [facility] | | | | [facility] | + + + + | (no date) | FLUTICASONE PROPIONATE 50 | [facility] | | | [facility] | [facility] | + + + + | (no date) | FUROSEMIDE | [facility] | | | | [facility] | + + + + | (no date) | CLOPIDOGREL BISULFATE | [facility] | | | | [facility] | + + + + | (no date) | CLOPIDOGREL BISULFATE | [facility] | | | | [facility] | + + + + | (no date) | FUROSEMIDE | [facility] | | | | [facility] | + + + + | (no date) | OMEPRAZOLE MAGNESIUM | [facility] | | | | [facility] | + + + + | (no ) | ATORVASTATIN CALCIUM | [facility] | | | | [facility] | + + + + | (no date) | ATORVASTATIN CALCIUM | [facility] | | | | [facility] | + + + + | (no date) | ATORVASTATIN | [facility] | | | | [facility] | + + + + | (no date) | Estrogens, Conjugated | [facility] | | | | [facility] | + + + + | (no date) | LORATADINE | [facility] | | | | [facility] | + + + + | (no date) | ASPIRIN | [facility] | | | [facility] | + + + + | (no date) | AMIODARONE HCL | [facility] | | | | [facility] | + + + + | (no date) | WARFARIN SODIUM | [facility] | | | [facility] | + + + + | (no date) | WARFARIN SODIUM | [facility] | | | | [facility] | + + + + | (no date) | Diclofenac Sodium | [facility] | | | | [facility] | + + + + | (no date) | CLOBETASOL PROPIONATE | [facility] | | | | [facility] | + + + + | (no date) | LIOTHYRONINE SODIUM | [facility] | | | | [facility] | + + + + | (no date) | PRAVASTATIN SODIUM | [facility] | | | | [facility] | + + + + | (no date) | LEVOTHYROXINE SODIUM | [facility] | | | | [facility] | + + + + | (no date) | MIDODRINE HCL | [facility] | | | | [facility] | + + + + | (no date) | MIDODRINE HCL | [facility] | | | | [facility] | + + + + Problems No information. Procedures No information. Results/Labs +--------+--------+ +---------+--------+---------+ | test | date | facility | value | unit | notes | +--------+--------+ +---------+--------+---------+ + + | Result panel 1 | + + + + + +--------+ + + | WBC # Bld | 2025-09-04 | | 6.11 | (missing) | (missing) | | Auto | 13:45:07 | [facility] | | | | + + + +--------+ + + + + | Result panel 2 | + + + + + +--------+ + + | Lymphocytes | 2025-09-04 | | 28.6 | (missing) | (missing) | | NFr Bld | 13:45:07 | [facility] | | | | | Auto | [facility] | | | | + + + +--------+ + + + + | Result panel 3 | + + + + + +-------+ + + | Monocytes | 2025-09-04 | | 9.3 | (missing) | (missing) | | NFr Bld Auto | 13:45:07 | [facility] | | | | + + + +-------+ + + + + | Result panel 4 | + + + + + +-------+ + + | Eosinophil | 2025-09-04 | | 4.3 | (missing) | (missing) | | NFr Bld Auto | 13:45:07 | [facility] | | | | + + + +-------+ + + + + | Result panel 5 | + + + + + +-------+ + + | Basophils | 2025-09-04 | | 1.0 | (missing) | (missing) | | NFr Bld Auto | 13:45:07 | [facility] | | | | + + + +-------+ + + + + | Result panel 6 | + + + + + +--------+ + + | RBC # Bld | 2025-09-04 | | 3.61 | (missing) | (missing) | | Auto | 13:45:07 | [facility] | | | | + + + +--------+ + + + + | Result panel 7 | + + + + + +-------+---------+ + | Glucose | 2025-09-04 | | 121 | mg/dL | (missing) | | [facility] | 13:45:07 | [facility] | | | | + + + +-------+---------+ + + + | Result panel 8 | + + + + + +------+---------+ + | BUN | 2025-09-04 | | 27 | mg/dL | (missing) | | SerPl-mCramses | 13:45:07 | [facility] | | | | + + + +------+---------+ + + + | Result panel 9 | + + + + + +--------+---------+ + | Creat | 2025-09-04 | | 1.06 | mg/dL | (missing) | | [facility] | 13:45:07 | [facility] | | | | + + + +--------+---------+ + + + | Result panel 10 | + + + + + +------+ + + | eGFRcr | 2025-09-04 | | 52 | (missing) | (missing) | | SerPlBld | 13:45:07 | [facility] | | | | | CKD-EPI 2020 | [facility] | | | | + + + +------+ + + + + | Result panel 11 | + + + + + +--------+ + + | Hgb | 2025-09-04 | | 10.9 | (missing) | (missing) | | Bld-mCnc | 13:45:07 | [facility] | | | | + + + +--------+ + + + + | Result panel 12 | + + + + + +---------+ + + | BUN/Creat | 2025-09-04 | | 25.47 | (missing) | (missing) | | SerPl | 13:45:07 | [facility] | | | | + + + +---------+ + + + + | Result panel 13 | + + + + + +-------+ + + | Sodium | 2025-09-04 | | 142 | (missing) | (missing) | | SerPl-sCnc | 13:45:07 | [facility] | | | | + + + +-------+ + + + + | Result panel 14 | + + + + + +-------+ + + | Potassium | 2025-09-04 | | 4.0 | (missing) | (missing) | | SerPl-sCnc | 13:45:07 | [facility] | | | | + + + +-------+ + + + + | Result panel 15 | + + + + + +-------+ + + | Chloride | 2025-09-04 | | 105 | (missing) | (missing) | | SerPl-sCnc | 13:45:07 | [facility] | | | | + + + +-------+ + + + + | Result panel 16 | + + + + + +------+ + + | CO2 | 2025-09-04 | | 28 | (missing) | (missing) | | [facility] | 13:45:07 | [facility] | | | | + + + +------+ + + + + | Result panel 17 | + + + + + +--------+ + + | Anion Gap | 2025-09-04 | | 13.0 | (missing) | (missing) | | SerPl | 13:45:07 | [facility] | | | | | Calculated.4 | [facility]-s[facility]nc | [facility] | | | | + + + +--------+ + + + + | Result panel 18 | + + + + + +-------+---------+ + | Calcium | 2025-09-04 | | 8.8 | mg/dL | (missing) | | SerPl-mCnc | 13:45:07 | [facility] | | | | + + + +-------+---------+ + + + | Result panel 19 | + + + + + +-------+ + + | Prot | 2025-09-04 | | 6.7 | (missing) | (missing) | | [facility] | 13:45:07 | [facility] | | | | + + + +-------+ + + + + | Result panel 20 | + + + + + +-------+ + + | Albumin | 2025-09-04 | | 3.6 | (missing) | (missing) | | [facility] | 13:45:07 | [facility] | | | | + + + +-------+ + + + + | Result panel 21 | + + + + + +-------+ + + | Globulin | 2025-09-04 | | 3.1 | (missing) | (missing) | | Ser-mCnc | 13:45:07 | [facility] | | | | | | | - | | | | | | | [facility] | | | | + + + +-------+ + + + + | Result panel 22 | + + + + + +--------+ + + | Hct VFr.DF | 2025-09-04 | | 33.3 | (missing) | (missing) | | Bld Auto | 13:45:07 | [facility] | | | | + + + +--------+ + + + + | Result panel 23 | + + + + + +--------+ + + | | 2025-09-04 | | 1.16 | (missing) | (missing) | | Albumin/Glob | 13:45:07 | [facility] | | | | | SerPl | [facility] | | | | + + + +--------+ + + + + | Result panel 24 | + + + + + +-------+---------+ + | Bilirub | 2025-09-04 | | 0.9 | mg/dL | (missing) | | SerPl-mCnc | 13:45:07 | [facility] | | | | + + + +-------+---------+ + + + | Result panel 25 | + + + + + +-----+ + + | AST | 2025-09-04 | | 9 | (missing) | (missing) | | [facility] | 13:45:07 | [facility] | | | | + + + +-----+ + + + + | Result panel 26 | + + + + + +------+ + + | ALT | 2025-09-04 | | 17 | (missing) | (missing) | | SerPl-cCnc | 13:45:07 | [facility] | | | | + + + +------+ + + + + | Result panel 27 | + + + + + +------+ + + | ALP | 2025-09-04 | | 65 | (missing) | (missing) | | SerPl-cCn | 13:45:07 | [facility] | | | | + + + +------+ + + + + | Result panel 28 | + + + + + +--------+ + + | WBC # Bld | 2025-09-04 | | 6.11 | (missing) | (missing) | | Auto | 13:45:07 | [facility] | | | | + + + +--------+ + + + + | Result panel 29 | + + + + + +--------+ + + | RBC # Bld | 2025-09-04 | | 3.61 | (missing) | (missing) | | Auto | 13:45:07 | [facility] | | | | + + + +--------+ + + + + | Result panel 30 | + + + + + +--------+ + + | Hgb | 2025-09-04 | | 10.9 | (missing) | (missing) | | Bld-mCnc | 13:45:07 | [facility] | | | | | | | - | | | | | | [facility] | | | | + + + +--------+ + + + + | Result panel 31 | + + + + + +--------+ + + | Hct VFr.DF | 2025-09-04 | | 33.3 | (missing) | (missing) | | Bld Auto | 13:45:07 | [facility] | | | | + + + +--------+ + + + + | Result panel 32 | + + + + + +--------+ + + | RBC Auto | 2025-09-04 | | 92.2 | (missing) | (missing) | | | 13:45:07 | [facility] | | | | + + + +--------+ + + + + | Result panel 33 | + + + + + +--------+ + + | RBC Auto | 2025-09-04 | | 92.2 | (missing) | (missing) | | | 13:45:07 | [facility] | | | | + + + +--------+ + + + + | Result panel 34 | + + + + + +--------+ + + | MCH RBC Qn | 2025-09-04 | | 30.2 | (missing) | (missing) | | Auto | 13:45:07 | [facility] | | | | + + + +--------+ + + + + | Result panel 35 | + + + + + +--------+ + + | MCHC RBC | 2025-09-04 | | 32.7 | (missing) | (missing) | | Auto-EntMCnc | 13:45:07 | [facility] | | | | + + + +--------+ + + + + | Result panel 36 | + + + + + +-------+ + + | Platelet # | 2025-09-04 | | 197 | (missing) | (missing) | | Bld Auto | 13:45:07 | [facility] | | | | + + + +-------+ + + + + | Result panel 37 | + + + + + +--------+ + + | Neutrophils | 2025-09-04 | | 56.5 | (missing) | (missing) | | NFr Bld | 13:45:07 | [facility] | | | | | Auto | [facility] | | | | + + + +--------+ + + + + | Result panel 38 | + + + + + +--------+ + + | Lymphocytes | 2025-09-04 | | 28.6 | (missing) | (missing) | | NFr Bld | 13:45:07 | [facility] | | | | | Auto | | [facility] | | | | + + + +--------+ + + + + | Result panel 39 | + + + + + +-------+ + + | Monocytes | 2025-09-04 | | 9.3 | (missing) | (missing) | | NFr Bld Auto | 13:45:07 | [facility] | | | | + + + +-------+ + + + + | Result panel 40 | + + + + + +-------+ + + | Eosinophil | 2025-09-04 | | 4.3 | (missing) | (missing) | | NFr Bld Auto | 13:45:07 | [facility] | | | | + + + +-------+ + + + + | Result panel 41 | + + + + + +-------+ + + | Basophils | 2025-09-04 | | 1.0 | (missing) | (missing) | | NFr Bld Auto | 13:45:07 | [facility] | | | | + + + +-------+ + + + + | Result panel 42 | + + + + + +--------+ + + | MCH RBC Qn | 2025-09-04 | | 30.2 | (missing) | (missing) | | Auto | 13:45:07 | [facility] | | | | + + + +--------+ + + + + | Result panel 43 | + + + + + +--------+ + + | MCHC RBC | 2025-09-04 | | 32.7 | (missing) | (missing) | | Auto-EntMCnc | 13:45:07 | [facility] | | | | + + + +--------+ + + + + | Result panel 44 | + + + + + +-------+---------+ + | Glucose | 2025-09-04 | | 121 | mg/dL | (missing) | | [facility] | 13:45:07 | [facility] | | | | + + + +-------+---------+ + + + | Result panel 45 | + + + + + +------+---------+ + | BUN | 2025-09-04 | | 27 | mg/dL | (missing) | | [facility] | 13:45:07 | [facility] | | | | + + + +------+---------+ + + + | Result panel 46 | + + + + + +--------+---------+ + | Creat | 2025-09-04 | | 1.06 | mg/dL | (missing) | | [facility] | 13:45:07 | [facility] | | | | | | | - | | | | | | | [facility] | | | | + + + +--------+---------+ + + + | Result panel 47 | + + + + + +------+ + + | eGFRcr | 2025-09-04 | | 52 | (missing) | (missing) | | SerPlBld | 13:45:07 | [facility] | | | | | CKD-EPI 2020 | [facility] | | | | + + + +------+ + + + + | Result panel 48 | + + + + + +---------+ + + | BUN/Creat | 2025-09-04 | | 25.47 | (missing) | (missing) | | SerPl | 13:45:07 | [facility] | | | | + + + +---------+ + + + + | Result panel 49 | + + + + + +-------+ + + | Sodium | 2025-09-04 | | 142 | (missing) | (missing) | | SerPl-sCnc | 13:45:07 | [facility] | | | | + + + +-------+ + + + + | Result panel 50 | + + + + + +-------+ + + | Potassium | 2025-09-04 | | 4.0 | (missing) | (missing) | | SerPl-sCnc | 13:45:07 | [facility] | | | | + + + +-------+ + + + + | Result panel 51 | + + + + + +-------+ + + | Chloride | 2025-09-04 | | 105 | (missing) | (missing) | | SerPl-sCnc | 13:45:07 | [facility] | | | | + + + +-------+ + + + + | Result panel 52 | + + + + + +------+ + + | CO2 | 2025-09-04 | | 28 | (missing) | (missing) | | [facility] | 13:45:07 | [facility] | | | | + + + +------+ + + + + | Result panel 53 | + + + + + +--------+ + + | Anion Gap | 2025-09-04 | | 13.0 | (missing) | (missing) | | SerPl | 13:45:07 | [facility] | | | | | Calculated.4 | [facility] | | | | + + + +--------+ + + + + | Result panel 54 | + + + + + +-------+ + + | Platelet # | 2025-09-04 | | 197 | (missing) | (missing) | | Bld Auto | 13:45:07 | [facility] | | | | + + + +-------+ + + + + | Result panel 55 | + + + + + +-------+---------+ + | Calcium | 2025-09-04 | | 8.8 | mg/dL | (missing) | | SerPl-ramses | 13:45:07 | [facility] | | | | + + + +-------+---------+ + + + | Result panel 56 | + + + + + +-------+ + + | Prot | 2025-09-04 | | 6.7 | (missing) | (missing) | | SerPl-mCramses | 13:45:07 | [facility] | | | | + + + +-------+ + + + + | Result panel 57 | + + + + + +-------+ + + | Albumin | 2025-09-04 | | 3.6 | (missing) | (missing) | | Cassie | 13:45:07 | [facility] | | | | + + + +-------+ + + + + | Result panel 58 | + + + + + +-------+ + + | Globulin | 2025-09-04 | | 3.1 | (missing) | (missing) | | Ser-Daisy | 13:45:07 | [facility] | | | | + + + +-------+ + + + + | Result panel 59 | + + + + + +--------+ + + | | 2025-09-04 | | 1.16 | (missing) | (missing) | | Albumin/Glob | 13:45:07 | [facility] | | | | | SerPl | [facility] | | | | + + + +--------+ + + + + | Result panel 60 | + + + + + +-------+---------+ + | Bilirub | 2025-09-04 | | 0.9 | mg/dL | (missing) | | SerPl-mCnc | 13:45:07 | [facility] | | | | + + + +-------+---------+ + + + | Result panel 61 | + + + + + +-----+ + + | AST | 2025-09-04 | | 9 | (missing) | (missing) | | [facility] | 13:45:07 | [facility] | | | | + + + +-----+ + + + + | Result panel 62 | + + + + + +------+ + + | ALT | 2025-09-04 | | 17 | (missing) | (missing) | | SerPl-cCnc | 13:45:07 | [facility] | | | | + + + +------+ + + + + | Result panel 63 | + + + + + +------+ + + | ALP | 2025-09-04 | | 65 | (missing) | (missing) | | SerPl-cCnc | 13:45:07 | [facility] | | | | + + + +------+ + + + + | Result panel 64 | + + + + + +--------+ + + | Neutrophils | 2025-09-04 | | 56.5 | (missing) | (missing) | | NFr Bld | 13:45:07 | [facility] | | | | | Auto | [facility] | | | | + + + +--------+ + + + + | Result panel 65 | + + + + + + + + + | Color Ur | 2025-09-04 | | YELLOW | (missing) | (missing) | | Auto | 14:34:07 | [facility] | | | | + + + + + + + + + | Result panel 66 | + + + + + +---------+ + + | Character | 2025-09-04 | | CLEAR | (missing) | (missing) | | Ur | 14:34:07 | [facility] | | | | + + + +---------+ + + + + | Result panel 67 | + + + + + + + + + | Glucose Ur | 2025-09-04 | | NEGATIVE | (missing) | (missing) | | Ql Strip | 14:34:07 | [facility] | | | | + + + + + + + + + | Result panel 68 | + + + + + + + + + | Betty Woods | 2025-09-04 | | NEGATIVE | (missing) | (missing) | | Ql Strip | 14:34:07 | [facility] | | | | + + + + + + + + + | Result panel 69 | + + + + + + + + + | Ketones Chuck | 2025-09-04 | | NEGATIVE | (missing) | (missing) | | Ql Strip | 14:34:07 | [facility] | | | | + + + + + + + + + | Result panel 70 | + + + + + + + + + | Sp Gr Ur | 2025-09-04 | | <=1.005 | (missing) | (missing) | | Strip | 14:34:07 | [facility] | | | | + + + + + + + + + | Result panel 71 | + + + + + + + + + | Hgb Ur Ql | 2025-09-04 | | NEGATIVE | (missing) | (missing) | | Strip | 14:34:07 | [facility] | | | | + + + + + + + + + | Result panel 72 | + + + + + +-------+ + + | pH Ur Strip | 2025-09-04 | | 6.0 | (missing) | (missing) | | | 14:34:07 | [facility] | | | | + + + +-------+ + + + + | Result panel 73 | + + + + + + + + + | Prot Ur | 2025-09-04 | | NEGATIVE | (missing) | (missing) | | Strip-mCnc | 14:34:07 | [facility] | | | | + + + + + + + + + | Result panel 74 | + + + + + + + + + | | 2025-09-04 | | NORMAL | (missing) | (missing) | | Urobilinogen | 14:34:07 | [facility] | | | | | Ur | [facility] | | | | + + + + + + + + + | Result panel 75 | + + + + + + + + + | Nitrite Ur | 2025-09-04 | | NEGATIVE | (missing) | (missing) | | Ql Strip | 14:34:07 | [facility] | [facility] | | | | + + + + + + + + + | Result panel 76 | + + + + + + + + + | Leukocyte | 2025-09-04 | | NEGATIVE | (missing) | (missing) | | esterase Ur | 14:34:07 | [facility] | | | | | Ql Strip | [facility] | | | | + + + + + + + + + | Result panel 77 | + + + + + + + + + | Color Ur | 2025-09-04 | | YELLOW | (missing) | (missing) | | Auto | 14:34:07 | [facility] | [facility] | | | | + + + + + + + + + | Result panel 78 | + + + + + +---------+ + + | Character | 2025-09-04 | | CLEAR | (missing) | (missing) | | Ur | 14:34:07 | [facility] | | | | + + + +---------+ + + + + | Result panel 79 | + + + + + + + + + | Glucose Ur | 2025-09-04 | | NEGATIVE | (missing) | (missing) | | Ql Strip | 14:34:07 | [facility] | | | | + + + + + + + + + | Result panel 80 | + + + + + + + + + | Billuciana Ur | 2025-09-04 | | NEGATIVE | (missing) | (missing) | | Ql Strip | 14:34:07 | [facility] | | | | + + + + + + + + + | Result panel 81 | + + + + + + + + + | Ketones Ur | 2025-09-04 | | NEGATIVE | (missing) | (missing) | | Ql Strip | 14:34:07 | [facility] | | | | + + + + + + + + + | Result panel 82 | + + + + + + + + + | Sp Gr Ur | 2025-09-04 | | <=1.005 | (missing) | (missing) | | Strip | 14:34:07 | [facility] | | | | + + + + + + + + + | Result panel 83 | + + + + + + + + + | Hgb Ur Ql | 2025-09-04 | | NEGATIVE | (missing) | (missing) | | Strip | 14:34:07 | [facility] | | | | [facility] | | | | + + + + + + + + + | Result panel 84 | + + + + + +-------+ + + | pH Ur Strip | 2025-09-04 | | 6.0 | (missing) | (missing) | | | 14:34:07 | [facility] | | | | + + + +-------+ + + + + | Result panel 85 | + + + + + + + + + | Prot Ur | 2025-09-04 | | NEGATIVE | (missing) | (missing) | | Strip-mCnc | 14:34:07 | [facility] | | | | + + + + + + + + + | Result panel 86 | + + + + + + + + + | | 2025-09-04 | | NORMAL | (missing) | (missing) | | Urobilinogen | 14:34:07 | [facility] | | | | | Ur [facility] | [facility] | | | | + + + + + + + + + | Result panel 87 | + + + + + + + + + | Nitrite Ur | 2025-09-04 | | NEGATIVE | (missing) | (missing) | | Ql Strip | 14:34:07 | [facility] | | | | + + + + + + + + + | Result panel 88 | + + + + + + + + + | Leukocyte | 2025-09-04 | | NEGATIVE | (missing) | (missing) | | esterase Ur | 14:34:07 | [facility] | | | | | Ql Strip [facility] | | | | + + + + + + + Social History +--------+ + + | date | description | facility | +--------+ + + Vital Signs + + + +---------+ | date | measurement | value | units | + + + +---------+ | 2025-07-16 00:00 | BP_diastolic | 57 | mmHg | + + + +---------+ | 2025-07-16 00:00 | BP_systolic | 81 | mmHg | + + + +---------+ | 2025-07-16 00:00 | heart_rate | 78 | /min | + + + +---------+ | 2025-07-23 00:00 | BP_diastolic | 56 | mmHg | + + + +---------+ | 2025-07-23 00:00 | BP_systolic | 93 | mmHg | + + + +---------+ | 2025-07-23 00:00 | heart_rate | 74 | /min | + + + +---------+ | 2025-07-30 00:00 | BP_diastolic | 56 | mmHg | + + + +---------+ | 2025-07-30 00:00 | BP_systolic | 110 | mmHg | + + + +---------+ | 2025-07-30 00:00 | heart_rate | 67 | /min | + + + +---------+ | 2025-08-06 00:00 | BP_diastolic | 51 | mmHg | + + + +---------+ | 2025-08-06 00:00 | BP_systolic | 99 | mmHg | + + + +---------+ | 2025-08-06 00:00 | heart_rate | 78 | /min | + + + +---------+ | 2025-09-04 00:00 | BMI | 27.9 | kg/m2 | + + + +---------+ | 2025-09-04 00:00 | BP_diastolic | 107 | mmHg | + + + +---------+ | 2025-09-04 00:00 | BP_systolic | 158 | mmHg | + + + +---------+ | 2025-09-04 00:00 | heart_rate | 75 | /min | + + + +---------+ | 2025-09-04 00:00 | height_metric | 167.64 | cm | + + + +---------+ | 2025-09-04 00:00 | height_standard | 66 | in | + + + +---------+ | 2025-09-04 00:00 | o2_saturation | 98 | % | + + + +---------+ | 2025-09-04 00:00 | respiration_rate | 16 | /min | + + + +---------+ | 2025-09-04 00:00 | | 97.7 | F | | | temperature_standar | | | | | d | | | + + + +---------+ | 2025-09-04 00:00 | weight_metric | 78.5 | kg | + + + +---------+ | 2025-09-04 00:00 | weight_standard | 173.062 | lb | + + + +---------+"
[~2025-09-24 10:01] MED LIST changes: +LIPITOR40 MG PO; +PLAVIX75 MG PO; +WARFARIN SODIUM1 MG PO; +WARFARIN SODIUM2 MG PO
--- OUTSIDE RECORDS SUMMARY | 2025-09-24 10:04 | XMS ---
PreManage Notification: JOSE HENSLEY Security Facilities And Grounds Director Events No recent Security Events currently on file CRITERIA MET - [facility] - [facility] - 2 Visits in 30 Days CARE PROVIDERS There are no care providers on record at this time. Lino has no Care Guidelines for this patient. [place] VISIT COUNT ([address] [facility] [place] [facility]. TOTAL 4 NOTE: Visits indicate total known visits. [place] [place] (12 MO.) 09/24/2025 10:03 [facility] [place] TYPE: Emergency COMPLAINT: - L FOOT INJURY 09/04/2025 13:30 [facility] [place] TYPE: Emergency COMPLAINT: - LOW BLOOD PRESSURE DIAGNOSES: - Acquired absence of both cervix and uterus - Allergy status to other antibiotic agents - Allergy status to other drugs, medicaments and biological substances - Heart failure, unspecified - Hypotension, unspecified - Other prison (current) drug therapy - Unspecified atrial fibrillation 06/08/2025 14:50 [facility] [place] TYPE: Emergency COMPLAINT: - DIZZINESS 11/19/2024 09:20 [facility] [place] TYPE: Emergency COMPLAINT: - RT FOOT INJURY DIAGNOSES: - Allergy status to other antibiotic agents - Allergy status to other drugs, medicaments and biological substances - Fall on same level from slipping, tripping and stumbling without subsequent striking against object, initial encounter - Heart failure, unspecified - Hormone replacement therapy - Hypothyroidism, unspecified - computer terminal operator (current) use of anticoagulants - Nondisplaced fracture of fifth metatarsal bone, right foot, initial encounter for closed fracture - Other medical terminologist (current) drug therapy - Pain in right foot - Personal history of transient ischemic attack (TIA), and cerebral infarction without residual deficits - Presence of prosthetic heart valve - Unspecified atrial fibrillation - Unspecified disorder of vestibular function, unspecified ear INPATIENT VISIT TRACKING (12 MO.) 08/02/2025 11:38 [place] [facility]: Cardiology DIAGNOSES: - Other persistent atrial fibrillation - Presence of other cardiac implants and grafts 06/08/2025 18:38 [facility] [place] TYPE: Medical Surgical COMPLAINT: - AMIODARONE INDUCED UNSTEADINESS DIAGNOSES: - Acquired absence of both cervix and uterus - Acquired absence of ovaries, bilateral - Acute kidney failure, unspecified - Adverse effect of other antidysrhythmic drugs, initial encounter - Allergy status to other antibiotic agents - Allergy status to other drugs, medicaments and biological substances - Ataxic gait - Chronic kidney disease, unspecified - Dizziness and giddiness - Do not resuscitate - Gastro-esophageal reflux disease without esophagitis - 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
[2025-09-24 14:25] VITALS: BP 107/63
== END 2025-09-24 14:25 | disposition home or self-care (01) ==
LOC: ED 10:01
DX: S92.355A Nondisplaced fracture of fifth metatarsal bone, left foot, initial encounter for closed fracture (principal); E03.9 Hypothyroidism, unspecified; W01.0XXA Fall on same level from slipping, tripping and stumbling without subsequent striking against object, initial encounter; Z79.02 Long term (current) use of antithrombotics/antiplatelets; Z79.51 Long term (current) use of inhaled steroids; Z88.0 Allergy status to penicillin; Z88.1 Allergy status to other antibiotic agents; Z88.5 Allergy status to narcotic agent; Z86.73 Personal history of transient ischemic attack (TIA), and cerebral infarction without residual deficits
CPT/HCPCS: 73630; 73700; 99283